=== PATIENT | female | born 1940 | race Caucasian/White ===

== ENCOUNTER → 2017-07-05 | Outpatient (CLI) | payer MEDICARE ==
--- NOTE | 2017-07-05 08:41 | Diagnostic Imaging Report ---
INDICATION: Routine screening. Comparison is made with prior exam from 10/17/2015 and 09/21/2013. The current study was also evaluated with a Computer Aided Detection (CAD) system. Mild density is identified bilaterally. The parenchymal pattern appears stable. There are scattered nodular densities which appear benign. No dominant mass or malignant appearing microcalcifications are seen. The axillae are unremarkable. IMPRESSION: No mammographic features suspicious for malignancy are identified. ACR BI-RADS Category 2: Benign findings. Result letter will be mailed to the patient. Note: At least 10% of breast cancer is not imaged by mammography. Dictated by: Dictated on workstation # [id number]
== END ==
LOC: RAD 07:38
PROVIDERS: ATTEND Family Medicine
DX: Z12.31 Encounter for screening mammogram for malignant neoplasm of breast (principal)
CPT/HCPCS: 77067

== ENCOUNTER 2018-06-01 05:39 | Outpatient (CLI) | payer MEDICARE ==
[~2018-06-01] VITALS: Ht 152.4 cm; Wt 64.4 kg
== END 2018-06-01 11:46 | disposition home or self-care (01) ==
LOC: PREOP 05:39
PROVIDERS: ATTEND Surgery
DX: Z01.818 Encounter for other preprocedural examination (principal)

== ENCOUNTER 2018-06-03 12:21 | Day surgery (SDC) | payer MEDICARE ==
[~2018-06-03] VITALS: Ht 152.4 cm; Wt 64.4 kg
--- NOTE | 2018-06-03 12:38 | Conscious Sedation/ASA ---
Conscious Sedation Pre-Proced Time 12:30 ASA Score 2 For ASA 3 and 4: Consider anesthesia and medical clearance. Also, for patients with a history of failed moderate sedation consider anesthesia. Airway Lungs Heart ASA score ASA 1: a normal healthy patient ASA 2: a patient with a mild systemic disease (mid diabetes, controlled hypertension, obesity ASA 3: a patient with a severe systemic disease that limits activity (angina , COPD, prior Myocardial infarction) ASA 4: a patient with an incapacitating disease that is a constant threat to life (CHF, renal failure) ASA 5: a moribund patient not expected to survive 24 hrs. (ruptured aneurysm) ASA 6: a declared brain- patient whose organs are being harvested. For emergent operations, add the letter E after the classification Mallampati Classification Grade 2 Sedation Plan Analgesia, Amnesia, Plan communicated to team members, Discussed options with patient/fam, Discussed risks with patient/fam The patient is an appropriate candidate to undergo the planned procedure, sedation, and anesthesia. The patient immediately re-assessed prior to indication. EVERARDO GEORGE MD Jun 03, 2018 12:38
--- NOTE | 2018-06-03 12:39 | Progress Note-Pre Operative ---
Pre-Operative Progress Note H&P Reviewed The H&P was reviewed, patient examined and no changes noted. Date Seen by Provider: Jun 03, 2018 Time Seen by Provider: 12:30 Date H&P Reviewed: Jun 03, 2018 Time H&P Reviewed: 12:30 Pre-Operative Diagnosis: rectal bleed EVERARDO GEORGE MD Jun 03, 2018 12:39
[2018-06-03 12:40] VITALS: BP 163/89
--- NOTE | 2018-06-03 12:40 | Discharge Inst-Surgical ---
D/C Lap Instructions-DORIS Follow Up 5 yrs Activity as tolerated High Fiber Diet 25g or more per day Avoid Alcohol, Caffeine, Spicy [place] and Acid foods. Drink 64 fluid oz or more of fluids per day. Symptoms to Report: Fever over 101 degree F, Nausea/Vomiting If any problems/questions: Contact your physician or go to Emergency Room EVERARDO GEORGE MD Jun 03, 2018 12:40
[2018-06-03] MEDS ORDERED: HYDROcodone/APAP 5 MG/325 MG (LORTAB) TAB PO PRN (12:45)
[2018-06-03] MEDS ORDERED: ONDANSETRON 4 MG/2 ML (SDV) Z0FRAN IV PRN (12:45)
[2018-06-03] MEDS ORDERED: morphine INJ 10 MG/ML 1ML (SYR OR VIAL) IV PRN (12:45)
[2018-06-03] MEDS ORDERED: ACETAMINOPHEN 325 MG TABLET PO PRN (12:45)
[2018-06-03] MEDS ORDERED: NS IV 500 ML 500 ML IV PRN (12:49)
[2018-06-03] MEDS ORDERED: NS IV 500 ML 500 ML ONE (12:56)
[2018-06-03] MEDS ORDERED: fentaNYL INJECTION 100 MCG/2 ML AMP IVP ONE (13:00)
[2018-06-03] MEDS ORDERED: LIDOCAINE JELLY 2% 6 ML SYRINGE MM PRN (13:00)
[2018-06-03] MEDS ORDERED: MIDAZOLAM 2 MG/2 ML (VERSED) VIAL IVP ONE (13:00)
[2018-06-03] MEDS ORDERED: fentaNYL INJECTION 100 MCG/2 ML AMP ONE ×2 (13:24)
[2018-06-03] MEDS ORDERED: LIDOCAINE JELLY 2% 6 ML SYRINGE ONE (13:24)
[2018-06-03] MEDS ORDERED: MIDAZOLAM 2 MG/2 ML (VERSED) VIAL ONE ×3 (13:25)
--- NOTE | 2018-06-03 14:39 | Progress Note-Post Operative ---
Post-Operative Progess Note Surgeon (s)/Firepot Operator And Tender (s) Surgeon EVERARDO GEORGE MD Firepot Operator And Tender: none Pre-Operative Diagnosis rectal bleed Post-Operative Diagnosis chronic stage 2 ext and int hemorrhoids, large pedunculated polyp rectum(1cm)(7cm from anal verge), mild sigmoid diverticulosis. Procedure & Operative Findings Date of Procedure 06/03/18 Procedure Performed/Findings Colonoscopy with snare polypectomy and submucosal injection. Rigid proctoscopy. Anesthesia Type CS Estimated Blood Loss Estimated blood loss (mL): minimal Specimens/Packing Specimens Removed rectal polyp EVERARDO GEORGE MD Jun 03, 2018 14:39
[2018-06-03 14:40] VITALS: BP 132/59
[2018-06-03 15:32] VITALS: BP 140/79
[2018-06-03 15:45] VITALS: BP 140/79
--- NOTE | 2018-06-04 | OPERATIVE REPORT ---
DATE OF SERVICE: 06/03/2018 ATTENDING PRIMARY CARE PHYSICIAN: Keeley Velásquez DO PREOPERATIVE DIAGNOSIS: Rectal bleed, family history of colon cancer. POSTOPERATIVE DIAGNOSES: Mild chronic stage II external and internal hemorrhoids, large pedunculated polyp(7-10mm)of the rectum, which was approximately 7 cm from the anal verge, mild sigmoiddiverticulosis. PROCEDURE: Colonoscopy with snare polypectomy,submucosal injection, rigid proctoscopy. SURGEON: Everardo George MD ANESTHESIA: Conscious sedation. ESTIMATED BLOOD LOSS: Minimal. FINDINGS: Chronic stage II external and internal hemorrhoids. There was a large polyp of the behind valve of De Oliveira of the rectum approximately 7 cm from the anal verge and palpable. This appeared to be a pedunculated polyp 7-10mm in size. This was excised at its base using a snare. A rigid proctoscopy was also performed. DISPOSITION: The patient tolerated the procedure well. INDICATIONS: The patient is a 78-year-old female who we had initially seen 11/2015. She reports a family history of colon cancer with her son being diagnosed at age 32. She underwent a colonoscopy and found to have chronic stage II external and internal hemorrhoids as well as a mild sigmoid diverticulosis. On 04/19/2018, she reports a 6-month history of intermittent episodes of red blood per rectum. This was initially thought to be hemorrhoids. She reports that she does not have any major issues with constipation and that her stools are mostly soft and she does take in at least 25 grams of fiber on a daily basis. Despite having the loose or soft stools with no form, she is noticing small amounts of self-limited blood per rectum. DESCRIPTION OF PROCEDURE: The patient was brought to the endoscopy suite, laid in left lateral decubitus position. After adequate IV pain and sedative medications and conscious sedation anesthesia, a digital rectal examination was performed. Mild chronic stage II external and internal hemorrhoids were identified, which were not actively edematous nor inflamed and no bleeding. Normal sphincter tone was felt. There was also palpable mass at the tip of the finger across from second valve of De Oliveira, which appeared to be a pedunculated polyp. The lesion was approximately 7 to 10 mm in size. We proceeded beyond this point through the sigmoid colon where a mild sigmoid diverticulosis identified. The remainder of the descending, transverse, ascending colon and the cecum were normal. There are no other lesions identified. We then proceeded with a rigid proctoscopy to try to measure the distance from the anal verge and appears to be approximately 7 cm. We then proceeded with a snare polypectomy at the base using electrocautery with visualization of good hemostasis. The lesion was then sent to pathology. Around the lesion proximally and distally, the submucosal injections of black ink were performed. The endoscope was then slowly withdrawn while taking a second look and suctioning residual air with no additional findings. The patient tolerated procedure well. We will await the biopsy results; however, due of the family history of colon cancer as well as the size of the lesion, we will recommend a followup colonoscopy in approximately 3 months. If this does harbor an early malignancy and due to the size of the lesion, she may benefit from transrectal ultrasound and if there is no muscularis invasion, she may opt for a transrectal excision; however, if this beyond this stage, she may need a formal resection with a low anterior resection. Job ID: [id number] DocumentID: [id number] Dictated Date: 06/03/2018 14:29:54 Air Sealing Technician Date: 06/03/2018 23:59:29 Dictated By: EVERARDO GEORGE MD MTDD
== END 2018-06-03 15:45 | disposition home or self-care (01) ==
LOC: ENDO 12:21
PROVIDERS: ATTEND Surgery
DX: D12.8 Benign neoplasm of rectum (principal); K57.30 Diverticulosis of large intestine without perforation or abscess without bleeding; K64.1 Second degree hemorrhoids; Z80.0 Family history of malignant neoplasm of digestive organs

== ENCOUNTER 2018-08-15 05:33 | Outpatient (CLI) | payer MEDICARE ==
[~2018-08-15] VITALS: Ht 152.4 cm; Wt 64.4 kg
== END 2018-08-15 14:33 | disposition home or self-care (01) ==
LOC: PREOP 05:33
PROVIDERS: ATTEND Surgery
DX: Z01.818 Encounter for other preprocedural examination (principal)

== ENCOUNTER 2018-08-19 09:21 | Day surgery (SDC) | payer MEDICARE ==
[~2018-08-19] VITALS: Ht 152.4 cm; Wt 64.4 kg
[2018-08-19] MEDS ORDERED: NS IV 500 ML 500 ML ONE (09:28)
[2018-08-19] MEDS ORDERED: NS IV 500 ML 500 ML IV PRN (09:33)
[2018-08-19 09:45] VITALS: BP 153/70
[2018-08-19] MEDS ORDERED: LIDOCAINE JELLY 2% 6 ML SYRINGE MM PRN (09:45)
[2018-08-19] MEDS ORDERED: fentaNYL INJECTION 100 MCG/2 ML AMP IVP ONE (09:45)
[2018-08-19] MEDS ORDERED: MIDAZOLAM 2 MG/2 ML (VERSED) VIAL IVP ONE (09:45)
[2018-08-19] MEDS ORDERED: LIDOCAINE JELLY 2% 6 ML SYRINGE ONE (10:19)
[2018-08-19] MEDS ORDERED: fentaNYL INJECTION 100 MCG/2 ML AMP ONE ×2 (10:19)
[2018-08-19] MEDS ORDERED: MIDAZOLAM 2 MG/2 ML (VERSED) VIAL ONE ×4 (10:20)
--- NOTE | 2018-08-19 10:44 | Conscious Sedation/ASA ---
Conscious Sedation Pre-Proced Time 10:00 ASA Score 2 For ASA 3 and 4: Consider anesthesia and medical clearance. Also, for patients with a history of failed moderate sedation consider anesthesia. Airway Lungs Heart ASA score ASA 1: a normal healthy patient ASA 2: a patient with a mild systemic disease (mid diabetes, controlled hypertension, obesity ASA 3: a patient with a severe systemic disease that limits activity (angina , COPD, prior Myocardial infarction) ASA 4: a patient with an incapacitating disease that is a constant threat to life (CHF, renal failure) ASA 5: a moribund patient not expected to survive 24 hrs. (ruptured aneurysm) ASA 6: a declared brain- patient whose organs are being harvested. For emergent operations, add the letter E after the classification Mallampati Classification Grade 2 Sedation Plan Analgesia, Amnesia, Plan communicated to team members, Discussed options with patient/fam, Discussed risks with patient/fam The patient is an appropriate candidate to undergo the planned procedure, sedation, and anesthesia. The patient immediately re-assessed prior to indication. EVERARDO GEORGE MD August 19, 2018 10:44
[2018-08-19] MEDS ORDERED: HYDROcodone/APAP 5 MG/325 MG (LORTAB) TAB PO PRN (10:45)
[2018-08-19] MEDS ORDERED: morphine INJ 10 MG/ML 1ML (SYR OR VIAL) IV PRN (10:45)
[2018-08-19] MEDS ORDERED: ACETAMINOPHEN 325 MG TABLET PO PRN (10:45)
[2018-08-19] MEDS ORDERED: ONDANSETRON 4 MG/2 ML (SDV) Z0FRAN IV PRN (10:45)
--- NOTE | 2018-08-19 10:45 | Progress Note-Pre Operative ---
Pre-Operative Progress Note H&P Reviewed The H&P was reviewed, patient examined and no changes noted. Date Seen by Provider: August 19, 2018 Time Seen by Provider: 10:00 Date H&P Reviewed: August 19, 2018 Time H&P Reviewed: 10:00 Pre-Operative Diagnosis: hx rectal tubulovillous adenoma, family hx colon ca EVERARDO GEORGE MD August 19, 2018 10:45
--- NOTE | 2018-08-19 10:46 | Discharge Inst-Surgical ---
D/C Lap Instructions-DORIS Follow Up 5 Activity as tolerated High Fiber Diet 25g or more per day Avoid Alcohol, Caffeine, Spicy [place] and Acid foods. Drink 64 fluid oz or more of fluids per day. Symptoms to Report: Fever over 101 degree F, Nausea/Vomiting If any problems/questions: Contact your physician or go to Emergency Room EVERARDO GEORGE MD August 19, 2018 10:46
--- NOTE | 2018-08-19 11:14 | Progress Note-Post Operative ---
Post-Operative Progess Note Surgeon (s)/Plumbing Mechanic (s) Surgeon EVERARDO GEORGE MD Plumbing Mechanic: none Pre-Operative Diagnosis hx rectal tubulovillous adenoma, family hx colon ca Post-Operative Diagnosis mild chronic stage 2 ext and int hemorrhoids, mild sigmoid diverticulosis. Procedure & Operative Findings Date of Procedure 08/19/18 Procedure Performed/Findings Colonoscopy. Anesthesia Type cs Estimated Blood Loss Estimated blood loss (mL): minimal Specimens/Packing Specimens Removed none EVERARDO GEORGE MD August 19, 2018 11:14
[2018-08-19 11:35] VITALS: BP 147/68
[2018-08-19 12:05] VITALS: BP 135/75
[2018-08-19 12:15] VITALS: BP 135/75
--- NOTE | 2018-08-19 19:56 | OPERATIVE REPORT ---
DATE OF SERVICE: 08/19/2018 ATTENDING PRIMARY CARE PHYSICIAN: Dr. Velásquez. PREOPERATIVE DIAGNOSES: History of polyp with high-grade dysplasia as well as a large pedunculated polyp 1 cm in size of the rectum, and family history of colon cancer. POSTOPERATIVE DIAGNOSES: Mild chronic stage II external and internal hemorrhoids, mild diverticulosis, no polyps identified. PROCEDURE: Colonoscopy. SURGEON: Everardo George MD ANESTHESIA: Conscious sedation. ESTIMATED BLOOD LOSS: Minimal. FINDINGS: As above in the postoperative diagnoses. DISPOSITION: The patient tolerated the procedure well. INDICATIONS: The patient is a 78-year-old female who had initially seen in 11/2015 for screening colonoscopy. She does have a family history of colon cancer with her son being diagnosed with the disease at age 32. She underwent a colonoscopy at that time and found to have hemorrhoids and mild to moderate diverticulosis; however, no polyps. She presented on 04/19/2018 with a six month history of intermittent episodes of blood per rectum and on 06/03/2018 was found to have a significantly sized pedunculated polyp of the rectum, 1 cm in size, 7 cm from the anal verge. There was also again the mild diverticulosis. The pathology came back as a tubulovillous adenoma with focal grade dysplasia; however, no focus of adenocarcinoma. DESCRIPTION OF PROCEDURE: The patient was brought to the endoscopy suite, laid in the left lateral decubitus position. After adequate IV pain and sedative medications and conscious sedation anesthesia, a digital rectal examination was performed. Chronic stage II external and internal hemorrhoids were identified, which are not actively edematous nor inflamed and no bleeding. Normal sphincter tone was felt and there were no palpable masses. The endoscope was then intubated to the anus and rectum gently insufflated. The endoscope was then advanced to the valves of De Oliveira of the rectum with no polyps or any neoplasms identified. The previous polyp excision site was marked with black ink submucosally and this was identified and there was no recurrent polyps identified. The endoscope was then advanced to the sigmoid colon where mild sigmoid diverticulosis identified. The remainder of the descending, transverse and ascending colon to the cecum was normal. No other lesions identified. The endoscope was then slowly withdrawn with taking a second look and suctioning residual air with no additional findings. The patient tolerated the procedure well. We will recommend continued medical management with a high fiber diet with at least 30 grams of fiber per day as well as significant amounts of water to promote soft stools on a daily basis. Due to her family history as well as a finding of a villous adenoma we will recommend a followup colonoscopy in 3 years. Job ID: [id number] DocumentID: [id number] Dictated Date: 08/19/2018 11:08:31 Civil Rights Attorney Date: 08/19/2018 19:56:00 Dictated By: EVERARDO GEORGE MD MTDD
== END 2018-08-19 12:15 | disposition home or self-care (01) ==
LOC: ENDO 09:21
PROVIDERS: ATTEND Surgery
DX: Z09 Encounter for follow-up examination after completed treatment for conditions other than malignant neoplasm (principal); Z86.010 Personal history of colon polyps; K57.30 Diverticulosis of large intestine without perforation or abscess without bleeding; K64.1 Second degree hemorrhoids; Z80.0 Family history of malignant neoplasm of digestive organs

== ENCOUNTER 2019-08-11 13:56 | Emergency (ER) | payer MEDICARE ==
[~2019-08-11] VITALS: Ht 152.4 cm; Wt 64.4 kg
--- NOTE | 2019-08-11 14:05 | ED Lower Extremity ---
General Stated Complaint: FALL,LEG PAIN Source: patient Exam Limitations: no limitations History of Present Illness Date Seen by Provider: August 11, 2019 Time Seen by Provider: 14:03 Initial Comments 79-year-old female presents with right knee pain. Patient reports that she had a missed step and twisted her right knee. She did not fall. She complains of pain diffusely in her right knee. She is able to bear weight better hurts. She is full range of motion but tender with range of motion. Patient also reports pain in her buttock and sacral area. She has some bruising on her low back/upper buttock. She does not have any other injuries. Allergies and Home Medications Allergies Coded Allergies: Penicillins (Verified Allergy, Unknown, RASH, 11/20/15) prednisone (Verified Allergy, Unknown, RASH, 11/20/15) Home Medications No Active Prescriptions or Reported Meds Patient Home Medication List Home Medication List Reviewed: Yes Review of Systems Constitutional: No chills, No fever Respiratory: no symptoms reported Cardiovascular: no symptoms reported Gastrointestinal: no symptoms reported Genitourinary: no symptoms reported Musculoskeletal: see HPI Past Exhtdvw-Tyaidy-Gadyqx Hx Past Med/Social Hx: Reviewed Nursing Past Med/Soc Hx Patient Social History 2nd Hand Smoke Exposure: No Recent Foreign Travel: No Contact w/Someone Who Travel: No Recent Hopitalizations: No Immunizations Up To Date Date of Pneumonia Vaccine: Oct 22, 2015 Date of Influenza Vaccine: Jan 10, 2018 Seasonal Allergies Seasonal Allergies: No Past Medical History Surgeries: No Respiratory: No Cardiac: No Neurological: No Genitourinary: No Gastrointestinal: Yes Polyps Musculoskeletal: No Endocrine: No HEENT: No Cancer: No Psychosocial: No Integumentary: No Blood Disorders: No Physical Exam Vital Signs Vital Signs - First Documented 08/11/19 14:00 Temp 37.7 Pulse 50 Resp 18 B/P (MAP) 184/84 (117) Pulse Ox 97 O2 Delivery Room Air Capillary Refill : Height, Weight, BMI Height: 5'0.00" Weight: 142lbs. 0.0oz. 64.305500qs; 27.7 BMI Method: General Appearance: WD/WN, no apparent distress Cardiovascular: normal peripheral pulses, regular rate, rhythm Respiratory: chest non-tender Gastrointestinal: soft Back: other (bruising and tenderness to the upper Botox bilateral in lower lumbar) Hips: bilateral hip non-tender Legs: bilateral leg non-tender Knees: left knee non-tender, left knee normal inspection, left knee normal range of motion; right knee soft tissue tenderness, right knee other (painful range of motion but no obvious ligament or joint laxity on exam. However patient guarding due to pain) Ankles: bilateral ankle non-tender Feet: bilateral foot non-tender Neurologic/Tendon: normal sensation, normal motor functions Skin: ecchymosis (lower lumbar/bilateral buttocks) Progress/Results/Core Measures Results/Orders My Orders Orders - MAXINE DEMARCO DO Knee, Right, 3 Views (08/11/19 14:06) Pelvis (08/11/19 14:09) Sacrum And Coccyx (08/11/19 14:09) Lumbar Spine - 2-3 Views (08/11/19 14:09) Kaden Bandage (08/11/19 15:47) Vital Signs/I&O 08/11/19 14:00 Temp 37.7 Pulse 50 Resp 18 B/P (MAP) 184/84 (117) Pulse Ox 97 O2 Delivery Room Air Progress Progress Note : Time: 15:52 Progress Note Patient with no acute fractures. Patient with knee strain and large posterior buttock/sacral hematoma. Patient will be placed in an Kaden wrap. I recommend she has difficulty and bleeding she try a walker. She should use ice to affected area for 24 hours and warm moist heat. She can try topical lidocaine with menthol as well as Tylenol and ibuprofen for the tenderness. Recommend she follow-up with her primary care provider in 2-3 days for continuation of care and recheck in today symptoms. Diagnostic Imaging Diagonstic Imaging: Xray Comments [facility], [place] NAME: [facility] REC#: [id number] PT STATUS: REG ER : 1940 PHYSICIAN: MAXINE DEMARCO DO ADMIT DATE: 08/11/19/ER Draft Date of Exam:08/11/19 SACRUM AND COCCYX INDICATION: Fall with back pain. TIME OF EXAM: 03:24 p.m. FINDINGS: Frontal and lateral views of the sacrum and coccyx were obtained. Sacrococcygeal alignment appears normal. No fractures identified. Sacral ala appear intact. Arcuate lines are intact. Calcific density of right pelvis may represent calcified uterine fibroid. IMPRESSION: No acute bony abnormality is detected [facility] [place] NAME: [facility] REC#: [id number] PT STATUS: REG ER : 1940 PHYSICIAN: MAXINE DEMARCO DO ADMIT DATE: 08/11/19/ER Draft Date of Exam:08/11/19 PELVIS EXAMINATION: Pelvis 1 or 2 views HISTORY: Fall. COMPARISON: None available. FINDINGS: Calcified fibroid is present in the uterus. Mild bilateral hip joint osteoarthrosis is seen. No fracture is seen. Alignment is normal. IMPRESSION: 1. No fracture in the pelvis.[facility] [place] NAME: [facility] REC#: [id number] PT STATUS: REG ER : 1940 PHYSICIAN: MAXINE DEMARCO DO ADMIT DATE: 08/11/19/ER Draft Date of Exam:08/11/19 LUMBAR SPINE - 2-3 VIEWS INDICATION: Fall and back pain. TIME OF EXAM: 3:23 p.m. FINDINGS: Curvature of the lumbar spine is normal. There is minimal anterolisthesis of L4 on L5. Vertebral body heights are maintained. No acute compression fracture is identified. There is generalized lumbar spondylosis with variable disc space narrowing. Abdominal aorta is calcified. There is lower lumbar facet arthropathy. IMPRESSION: Lumbar spondylosis. No acute bony abnormality is detected. [facility] [place] [place] NAME: [facility] REC#: [id number] PT STATUS: REG ER : 1940 PHYSICIAN: MAXINE DEMARCO DO ADMIT DATE: 08/11/19/ER Signed Date of Exam:08/11/19 KNEE, RIGHT, 3 VIEWS INDICATION: Fall, right knee pain. TIME OF EXAM: 3:28 p.m. TECHNIQUE: Three views of the right knee were obtained. FINDINGS: Alignment is normal. No fracture or dislocation is identified. There is no effusion. There is mild tricompartmental degenerative change noted. IMPRESSION: Degenerative changes. No acute bony abnormality is Departure Impression Primary Impression: Traumatic hematoma of buttock Qualified Codes: S30.0XXA - Contusion of lower back and pelvis, initial encounter Additional Impressions: Fall Qualified Codes: W19.XXXA - Unspecified fall, initial encounter Strain of right knee and leg Qualified Codes: S86.911A - Strain of unspecified muscle(s) and tendon(s) at lower leg level, right leg, initial encounter Lumbar contusion Qualified Codes: S30.0XXA - Contusion of lower back and pelvis, initial encounter Disposition: HOME, SELF-CARE Condition: Stable Departure-Patient Inst. Referrals: VALENTE ALATORRE DO (PCP/Family) Primary Care Physician Patient Instructions: Contusion (DC), Taking Care of Bruises, Coccyx Injury (DC), Muscle Strain Add. Discharge Instructions: Please use a walker as needed to ambulate due to knee strain Please follow-up with your primary care provider in 2-3 days for recheck in today symptoms Tylenol or ibuprofen as needed for pain or tenderness 4% topical lidocaine with menthol to affected area as directed on package Emergency department focuses on treating and ruling out life-threatening diseases. Whenever possible, a diagnosis is given. However, most patients are given an impression based on their history, physical exam, and workup during your brief time in the ER. Information about probable diagnosis and other educ ational material has been provided. Please take the time to read and understand this information. It is very important that you follow up with a physician as discussed during the visit today. Failure to adhere to your follow-up instructions may lead to severe disability, injury, or so please make sure to keep your appointments or obtain one as requested. Please keep in mind the emergency department is not designed to your primary care or "family doctor" and nonurgent issues are best evaluated by an outpatient physician Scripts No Active Prescriptions or Reported Meds MAXINE DEMARCO DO August 11, 2019 14:05
--- NOTE | 2019-08-11 15:09 | NUR ---
Pt denies needs at this time. Report given to Baylee to assume care of pt at this time.
--- NOTE | 2019-08-11 15:29 | Diagnostic Imaging Report ---
EXAMINATION: Pelvis 1 or 2 views HISTORY: Fall. COMPARISON: None available. FINDINGS: Calcified fibroid is present in the uterus. Mild bilateral hip joint osteoarthrosis is seen. No fracture is seen. Alignment is normal. IMPRESSION: 1. No fracture in the pelvis. Dictated by: Dictated on workstation # [id number]
--- NOTE | 2019-08-11 15:30 | NUR ---
PT BACK FROM LAB ET WARM BLANKET GIVEN. DENIES NEEDS AT THIS TIME.
--- NOTE | 2019-08-11 15:30 | Diagnostic Imaging Report ---
INDICATION: Fall, right knee pain. TIME OF EXAM: 3:28 p.m. TECHNIQUE: Three views of the right knee were obtained. FINDINGS: Alignment is normal. No fracture or dislocation is identified. There is no effusion. There is mild tricompartmental degenerative change noted. IMPRESSION: Degenerative changes. No acute bony abnormality is detected. Dictated by: Dictated on workstation # [id number]
--- NOTE | 2019-08-11 15:34 | Diagnostic Imaging Report ---
INDICATION: Fall and back pain. TIME OF EXAM: 3:23 p.m. FINDINGS: Curvature of the lumbar spine is normal. There is minimal anterolisthesis of L4 on L5. Vertebral body heights are maintained. No acute compression fracture is identified. There is generalized lumbar spondylosis with variable disc space narrowing. Abdominal aorta is calcified. There is lower lumbar facet arthropathy. IMPRESSION: Lumbar spondylosis. No acute bony abnormality is detected. Dictated by: Dictated on workstation # [id number]
--- NOTE | 2019-08-11 15:37 | Diagnostic Imaging Report ---
INDICATION: Fall with back pain. TIME OF EXAM: 03:24 p.m. FINDINGS: Frontal and lateral views of the sacrum and coccyx were obtained. Sacrococcygeal alignment appears normal. No fractures identified. Sacral ala appear intact. Arcuate lines are intact. Calcific density of right pelvis may represent calcified uterine fibroid. IMPRESSION: No acute bony abnormality is detected. Dictated by: Dictated on workstation # [id number]
[2019-08-11 15:59] VITALS: BP 137/84
== END 2019-08-11 15:59 | disposition home or self-care (01) ==
LOC: EDUNIT# 13:56 → ER 13:57
DX: S30.0XXA Contusion of lower back and pelvis, initial encounter (principal); S86.911A Strain of unspecified muscle(s) and tendon(s) at lower leg level, right leg, initial encounter; Z88.0 Allergy status to penicillin; Z88.8 Allergy status to other drugs, medicaments and biological substances; X50.1XXA Overexertion from prolonged static or awkward postures, initial encounter
CPT/HCPCS: 72100; 72170; 72220; 73562

== ENCOUNTER 2019-08-25 20:09 | Emergency (ER) | payer MEDICARE ==
[~2019-08-25] VITALS: Ht 152 cm; Wt 63.0 kg
[2019-08-25 20:58] LABS: BASOPHILS % (AUTO) 0 % (0-10); EOSINOPHILS # (AUTO) 0.2 10^3/uL (0.0-0.3); EOSINOPHILS % (AUTO) 2 % (0-10); HEMATOCRIT 29 % (35-52); HEMOGLOBIN 9.4 G/DL (11.5-16.0); LYMPHOCYTES # (AUTO) 3.6 X 10^3 (1.0-4.0); LYMPHOCYTES % (AUTO) 32 % (12-44); MEAN CORPUSCULAR HEMOGLOBIN 27 PG (25-34); MEAN CORPUSCULAR HGB CONC 32 G/DL (32-36); MEAN CORPUSCULAR VOLUME 82 FL (80-99); MONOCYTES # (AUTO) 1.1 X 10^3 (0.0-1.0); MONOCYTES % (AUTO) 9 % (0-12); NEUTROPHILS # (AUTO) 6.5 X 10^3 (1.8-7.8); NEUTROPHILS % (AUTO) 57 % (42-75); PLATELET COUNT 316 10^3/uL (130-400); WHITE BLOOD COUNT 11.4 10^3/uL (4.3-11.0)
[2019-08-25 20:59] LABS: ALBUMIN 3.7 GM/DL (3.2-4.5); POTASSIUM 3.7 MMOL/L (3.6-5.0)
[2019-08-25 21:01] LABS: CALCIUM 9.3 MG/DL (8.5-10.1)
[2019-08-25 21:02] LABS: TOTAL PROTEIN 6.5 GM/DL (6.4-8.2)
[2019-08-25 21:04] LABS: BILIRUBIN,TOTAL 0.5 MG/DL (0.1-1.0)
[2019-08-25 21:05] LABS: CREATININE SERUM 1.16 MG/DL (0.60-1.30); PROTHROMBIN TIME PATIENT 13.6 SEC (12.2-14.7)
--- NOTE | 2019-08-25 22:22 | ED GI ---
General Chief Complaint: Abdominal/GI Problems Stated Complaint: BLOODY STOOLS Nursing Triage Note: Patient went to have a bowel movement and states the toilet was full of blood around 1830. Sepsis Screen: No Definite Risk Source of Information: Patient, Old Records Exam Limitations: No Limitations History of Present Illness Date Seen by Provider: August 25, 2019 Time Seen by Provider: 20:46 Initial Comments This 79-year-old woman presents to emergency room with concerns about sudden onset of a large bloody bowel movement at home. She denies any pain. She has a history of rectal polyps and tubulovillous adenoma. She has had a large rectal polyp removed with pathology demonstrating high-grade dysplasia. Her last colonoscopy the last year demonstrated no significant abnormalities and a three- year follow-up was recommended. She is afebrile and her abdomen is nontender. She denies use of blood thinners. Allergies and Home Medications Allergies Coded Allergies: Penicillins (Verified Allergy, Unknown, RASH, 11/20/15) prednisone (Verified Allergy, Unknown, RASH, 11/20/15) Home Medications No Active Prescriptions or Reported Meds Patient Home Medication List Home Medication List Reviewed: Yes Review of Systems Review of Systems Constitutional: no symptoms reported EENTM: No Symptoms Reported Respiratory: No Symptoms Reported Cardiovascular: No Symptoms Reported Gastrointestinal: See HPI Genitourinary: No Symptoms Reported Musculoskeletal: no symptoms reported Skin: no symptoms reported Psychiatric/Neurological: No Symptoms Reported Endocrine: No Symptoms Reported Hematologic/Lymphatic: No Symptoms Reported Past Txhclhz-Ccfggh-Frgqln Hx Past Med/Social Hx: Reviewed Nursing Past Med/Soc Hx Patient Social History Alcohol Use: Denies Use Recreational Drug Use: No Smoking Status: Never a Smoker 2nd Hand Smoke Exposure: No Recent Foreign Travel: No Contact w/Someone Who Travel: No Recent Infectious Disease Expo: No Recent Hopitalizations: No Immunizations Up To Date Date of Pneumonia Vaccine: Oct 22, 2015 Date of Influenza Vaccine: Jan 10, 2018 Seasonal Allergies Seasonal Allergies: No Past Medical History Surgeries: No Respiratory: No Cardiac: Yes Hypertension Neurological: No : No Genitourinary: No Gastrointestinal: Yes Polyps (tubulovillous adenoma with high-grade dysplasia) Musculoskeletal: No Endocrine: No HEENT: No Cancer: No Psychosocial: No Integumentary: No Blood Disorders: No Physical Exam Vital Signs Vital Signs - First Documented 08/25/19 20:34 Pulse 91 Resp 14 B/P (MAP) 123/68 (86) Pulse Ox 98 O2 Delivery Room Air Capillary Refill : Less Than 3 Seconds Height/Weight/BMI Height: 5'0.00" Weight: 142lbs. 0.0oz. [id number]; 27.00 BMI Method: General Appearance: WD/WN, no apparent distress HEENT: PERRL/EOMI, normal ENT inspection Neck: normal inspection Respiratory: lungs clear, normal breath sounds, no respiratory distress Cardiovascular: regular rate, rhythm, no edema, no murmur Gastrointestinal: normal bowel sounds, non tender, soft; No distended Rectal: normal rectal tone; No mass, No tenderness; other (dried blood around the anus with no active bleeding. 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, no motor/sensory deficits, alert, normal mood/affect, oriented x 3 Skin: normal color, warm/dry Progress/Results/Core Measures Results/Orders Lab Results Laboratory Tests Test 08/25/19 20:35 Range/Units White Blood Count 11.4 H 4.3-11.0 10^3/uL Red Blood Count 3.54 L 4.35-5.85 10^6/uL Hemoglobin 9.4 L 11.5-16.0 G/DL Hematocrit 29 L 35-52 % Mean Corpuscular Volume 82 80-99 FL Mean Corpuscular Hemoglobin 27 25-34 PG Mean Corpuscular Hemoglobin Concent 32 32-36 G/DL Red Cell Distribution Width 15.0 H 10.0-14.5 % Platelet Count 316 130-400 10^3/uL Mean Platelet Volume 10.0 7.4-10.4 FL Neutrophils (%) (Auto) 57 42-75 % Lymphocytes (%) (Auto) 32 12-44 % Monocytes (%) (Auto) 9 0-12 % Eosinophils (%) (Auto) 2 0-10 % Basophils (%) (Auto) 0 0-10 % Neutrophils # (Auto) 6.5 1.8-7.8 X 10^3 Lymphocytes # (Auto) 3.6 1.0-4.0 X 10^3 Monocytes # (Auto) 1.1 H 0.0-1.0 X 10^3 Eosinophils # (Auto) 0.2 0.0-0.3 10^3/uL Basophils # (Auto) 0.0 0.0-0.1 10^3/uL Prothrombin Time 13.6 12.2-14.7 SEC INR Comment 1.0 0.8-1.4 Sodium Level 141 135-145 MMOL/L Potassium Level 3.7 3.6-5.0 MMOL/L Chloride Level 108 H 98-107 MMOL/L Carbon Dioxide Level 20 L 21-32 MMOL/L Anion Gap 13 5-14 MMOL/L Blood Urea Nitrogen 17 7-18 MG/DL Creatinine 1.16 0.60-1.30 MG/DL Estimat Glomerular Filtration Rate 45 BUN/Creatinine Ratio 15 Glucose Level 228 H 70-105 MG/DL Calcium Level 9.3 8.5-10.1 MG/DL Corrected Calcium 9.5 8.5-10.1 MG/DL Total Bilirubin 0.5 0.1-1.0 MG/DL Aspartate Amino Transf (AST/SGOT) 12 5-34 U/L Alanine Aminotransferase (ALT/SGPT) 8 0-55 U/L Alkaline Phosphatase 91 40-136 U/L Total Protein 6.5 6.4-8.2 GM/DL Albumin 3.7 3.2-4.5 GM/DL My Orders Orders - ZAHIRA FELDMAN MD Cbc With Automated Diff (08/25/19 20:52) Hemoglobin A1c (08/25/19 21:19) Orthostatic Vital Signs (Adult (08/25/19 22:22) Vital Signs/I&O 08/25/19 08/25/19 08/25/19 20:34 22:42 22:59 Pulse 91 87 81 89 90 Resp 14 16 B/P (MAP) 123/68 (86) 124/59 (80) 112/59 121/58 (79) 112/59 (76) Pulse Ox 98 98 O2 Delivery Room Air Room Air Blood Pressure Mean: 86 Progress Progress Note : Progress Note Labs and vitals were stable and patient had no further rectal bleeding. Case is discussed with Dr. Strong. Patient does not meet admission criteria and should follow up with Dr. Garcia on Wednesday. Patient was observed for a while to ensure bleeding stopped and vital signs remained stable. Orthostatic blood pressures were normal and patient was discharged home. Patient was noted to have hyperglycemia. A hemoglobin A1c was ordered and patient was advised to follow- up with her primary care provider for diabetic testing. Departure Impression Primary Impression: Hematochezia Additional Impression: Hyperglycemia Disposition: 01 HOME, SELF-CARE Condition: Improved Departure-Patient Inst. Referrals: VALENTE VELÁSQUEZ DO (PCP/Family) Primary Care Physician Patient Instructions: Gastrointestinal Bleeding, Hyperglycemia, Adult (DC) Add. Discharge Instructions: Start with a clear liquid diet for the next 12 hours and then gradually advance your diet with small quantities of bland food as tolerated. Expect to pass a bit more blood from the rectum with your next few bowel movements as the blood clears your system. Follow-up with Dr. Garcia and Dr. Velásquez on Wednesday. Discussed the rectal bleeding with Dr. Garcia and the high blood sugar with Dr. Velásquez. Avoid sugars and excessive carbohydrates in your diet. Return to the emergency room if you have recurrence of significant bleeding or if you develop new symptoms such as fever, lightheadedness, shortness of breath, etc. Return to the emergency room if you have any further problems or concerns. All discharge instructions reviewed with patient and/or family. Voiced understanding. Scripts No Active Prescriptions or Reported Meds Copy Copies To 1: VALENTE VELÁSQUEZ DO Copies To 2: EVERARDO GARCIA MD, JOSHUA T MD August 25, 2019 22:21
[2019-08-25 22:42] VITALS: BP_SYST 112; BP_SYST 121; BP_SYST 124; BP_DIAS 58; BP_DIAS 59
[2019-08-25 22:59] VITALS: BP 112/59
== END 2019-08-26 00:03 | disposition home or self-care (01) ==
LOC: EDUNIT# 20:09 → ER 20:10
DX: K92.1 Melena (principal); R73.9 Hyperglycemia, unspecified; Z88.0 Allergy status to penicillin; Z88.8 Allergy status to other drugs, medicaments and biological substances; Z86.010 Personal history of colon polyps
CPT/HCPCS: 36415; 80053; 83036; 85025; 85610; 86850; 86900; 86901; 86920

== ENCOUNTER 2019-09-01 09:08 | Outpatient (RCR) | payer MEDICARE ==
[~2019-09-01] VITALS: Ht 152 cm; Wt 63.6 kg
== END 2019-09-01 14:48 | disposition home or self-care (01) ==
LOC: PREOP 09:08
PROVIDERS: ATTEND Surgery
DX: Z01.818 Encounter for other preprocedural examination (principal); Z11.59 Encounter for screening for other viral diseases
CPT/HCPCS: 87635

== ENCOUNTER → 2019-09-06 | Day surgery (SDC) | payer MEDICARE ==
[~2019-09-06] VITALS: Ht 152 cm; Wt 63.6 kg
[2019-09-06] VITALS (13 sets, daily range): BP systolic 124–189; BP diastolic 59–87
[~2019-09-06] MED LIST: ACETAMINOPHEN 325 MG TABLET PO PRN; HYDROcodone/APAP 5 MG/325 MG (LORTAB) TAB PO PRN; LIDOCAINE JELLY 2% 6 ML SYRINGE MM PRN; LIDOCAINE JELLY 2% 6 ML SYRINGE ONE; MIDAZOLAM 5 MG/5 ML (VERSED) VIAL ONE; NS IV 500 ML 500 ML IV PRN; NS IV 500 ML 500 ML ONE; ONDANSETRON 4 MG/2 ML (SDV) Z0FRAN IVP PRN; fentaNYL INJECTION 100 MCG/2 ML AMP IVP ONE; fentaNYL INJECTION 100 MCG/2 ML AMP ONE; morphine INJ 10 MG/ML 1ML (SYR OR VIAL) IVP PRN
--- NOTE | 2019-09-06 10:34 | Conscious Sedation/ASA ---
Conscious Sedation Pre-Proced Time 10:00 ASA Score 2 For ASA 3 and 4: Consider anesthesia and medical clearance. Also, for patients with a history of failed moderate sedation consider anesthesia. Airway Lungs Heart ASA score ASA 1: a normal healthy patient ASA 2: a patient with a mild systemic disease (mid diabetes, controlled hypertension, obesity ASA 3: a patient with a severe systemic disease that limits activity (angina, COPD, prior Myocardial infarction) ASA 4: a patient with an incapacitating disease that is a constant threat to life (CHF, renal failure) ASA 5: a moribund patient not expected to survive 24 hrs. (ruptured aneurysm) ASA 6: a declared brain- patient whose organs are being harvested. For emergent operations, add the letter E after the classification Mallampati Classification Grade 2 Sedation Plan Analgesia, Amnesia, Plan communicated to team members, Discussed options with patient/fam, Discussed risks with patient/fam The patient is an appropriate candidate to undergo the planned procedure, sedation, and anesthesia. The patient immediately re-assessed prior to indication. EVERARDO GEORGE MD September 06, 2019 10:34
--- NOTE | 2019-09-06 10:35 | Progress Note-Pre Operative ---
Pre-Operative Progress Note H&P Reviewed The H&P was reviewed, patient examined and no changes noted. Date Seen by Provider: September 06, 2019 Time Seen by Provider: 10:00 Date H&P Reviewed: September 06, 2019 Time H&P Reviewed: 10:00 Pre-Operative Diagnosis: hx large polyp with HGD EVERARDO GEORGE MD September 06, 2019 10:35
--- NOTE | 2019-09-06 10:36 | Discharge Inst-Surgical ---
D/C Lap Instructions-DORIS Follow Up Activity as tolerated No driving for 24 hours No [address] while on pain medications Incentive Spirometry use every 2 hours while awake High Fiber Diet 25g or more per day Avoid Alcohol, Caffeine, Spicy Doral and Acid foods. Drink 64 fluid oz or more of fluids per day. Symptoms to Report: Fever over 101 degree F, Nausea/Vomiting If any problems/questions: Contact your physician or go to Emergency Room EVERARDO GEORGE MD September 06, 2019 10:36
[2019-09-06] MEDS: MIDAZOLAM 5 MG/5 ML (VERSED) VIAL IV PRN ×3 (11:20→11:35)
--- NOTE | 2019-09-06 13:11 | Progress Note-Post Operative ---
Post-Operative Progess Note Surgeon (s)/Public Health Aide (s) Surgeon EVERARDO GEORGE MD Public Health Aide: none Pre-Operative Diagnosis hx large polyp with HGD Post-Operative Diagnosis chronic stage 2 ext and int hemorrhoids, moderate sigmoid diverticulosis, no recurrent polyps. Procedure & Operative Findings Date of Procedure 09/06/19 Procedure Performed/Findings colonoscopy. Anesthesia Type cs Estimated Blood Loss Estimated blood loss (mL): minimal Specimens/Packing Specimens Removed none EVERARDO GEORGE MD September 06, 2019 13:11
--- NOTE | 2019-09-06 16:35 | OPERATIVE REPORT ---
DATE OF SERVICE: 09/06/2019 ATTENDING PRIMARY CARE PHYSICIAN: Dr. Keeley Velásquez. PREOPERATIVE DIAGNOSES: Rectal bleed, history of large rectal polyp with high-grade dysplasia. POSTOPERATIVE DIAGNOSES: Chronic stage II external and internal hemorrhoids, no recurrent polyp, moderate sigmoid diverticulosis. PROCEDURE: Colonoscopy. SURGEON: Everardo George MD. ANESTHESIA: Conscious sedation. ESTIMATED BLOOD LOSS: Minimal. FINDINGS: Chronic stage II external and internal hemorrhoids, no recurrent polyp, moderate sigmoid diverticulosis. DISPOSITION: The patient tolerated the procedure well. INDICATIONS: The patient is a 79-year-old female known to us. She does have a family history of colon cancer with her son being diagnosed with the disease at age 32. At that time, we found a chronic stage II external and internal hemorrhoids as well as a moderate sigmoid diverticulosis. She was seen back in 2019 where she noticed a small amount of blood and a large pedunculated polyp was identified 7 cm from the anal verge as well as the diverticulosis. The polyp was completely excised at the base. A rigid proctoscopy was also performed to measure the distance from the anal verge, which was approximately 7 cm in length. Pathology came back as a tubulovillous adenoma with focal high-grade dysplasia; however, no focus of adenocarcinoma. She was referred to us recently for rectal bleeding, which was one time episode and presented to the Emergency Department. This was self-limited and stopped on its own. DESCRIPTION OF PROCEDURE: The patient was brought to the endoscopy suite, laid in the left lateral decubitus position. After adequate IV pain and stated medications and conscious sedation anesthesia, a digital rectal examination was performed. Chronic stage II external and internal hemorrhoids were identified, which were not actively edematous nor inflamed and no bleeding. Normal sphincter tone was felt and there were no palpable masses. The endoscope was then intubated and anus and rectum gently insufflated. The endoscope was then advanced through the valves of De Oliveira of the rectum with no polyps or any neoplasms identified. The previous excision site, which was submucosally marked was normal with no recurrent polyps. The endoscope was then advanced to the sigmoid colon where a moderate sigmoid diverticulosis identified with no mucosal inflammatory change to indicate any active diverticulitis. This is most likely etiology of her episode of rectal bleed. The endoscope was then advanced to the remainder of the descending, transverse and ascending colon to the cecum. These segments were normal. There were no polyps or any neoplasms identified throughout the colon or rectum as well as no active bleeding sources. The endoscope was then slowly withdrawn while taking a second look and suctioning of residual air with no additional findings. The patient tolerated the procedure well. We will recommend a high fiber diet with at least 25 grams of fiber daily as well as significant amounts of water to promote soft stools on a daily basis and prevent any increased pressure within the left side of the colon and prevent the episodes of diverticular bleeding. No recurrent polyps were identified and if she is asymptomatic, she does not need another colonoscopy for another 5 years. Job ID: [id number] DocumentID: [id number] Dictated Date: 09/06/2019 11:52:46 Communications Technician Date: 09/06/2019 16:35:12 Dictated By: EVERARDO GEORGE MD MTDD
== END ==
LOC: ENDO 09:20
PROVIDERS: ATTEND Surgery
DX: K92.1 Melena (principal); K57.30 Diverticulosis of large intestine without perforation or abscess without bleeding; K64.1 Second degree hemorrhoids; K64.4 Residual hemorrhoidal skin tags; Z87.19 Personal history of other diseases of the digestive system; Z86.010 Personal history of colon polyps; Z80.0 Family history of malignant neoplasm of digestive organs

== ENCOUNTER 2020-07-12 14:17 | Outpatient (RCR) | payer MEDICARE ==
[2020-06-28 09:05] VITALS: BP 167/75
[2020-06-28] MEDS: IRON SUCROSE 200 MG/10 ML (VENOFER) VIAL IV SCH (10:06)
[2020-07-01] MEDS: IRON SUCROSE 200 MG/10 ML (VENOFER) VIAL IV SCH (09:13)
[2020-07-01 09:15] VITALS: BP 161/86
[2020-07-03] MEDS: IRON SUCROSE 200 MG/10 ML (VENOFER) VIAL IV SCH (09:27)
[2020-07-03 09:29] VITALS: BP 167/52
[2020-07-05 08:50] VITALS: BP 164/61
[2020-07-05] MEDS: IRON SUCROSE 200 MG/10 ML (VENOFER) VIAL IV SCH (09:25)
[~2020-07-12] VITALS: Ht 154.9 cm; Wt 65.7 kg
[~2020-07-12 14:17] MED LIST changes: -ACETAMINOPHEN 325 MG TABLET PO PRN; -HYDROcodone/APAP 5 MG/325 MG (LORTAB) TAB PO PRN; +IRON SUCROSE 200 MG/10 ML (VENOFER) VIAL IV ONE; -LIDOCAINE JELLY 2% 6 ML SYRINGE MM PRN; -LIDOCAINE JELLY 2% 6 ML SYRINGE ONE; -MIDAZOLAM 5 MG/5 ML (VERSED) VIAL ONE; -NS IV 500 ML 500 ML IV PRN; -NS IV 500 ML 500 ML ONE; -ONDANSETRON 4 MG/2 ML (SDV) Z0FRAN IVP PRN; -fentaNYL INJECTION 100 MCG/2 ML AMP IVP ONE; -fentaNYL INJECTION 100 MCG/2 ML AMP ONE; -morphine INJ 10 MG/ML 1ML (SYR OR VIAL) IVP PRN
[2020-07-12 14:27] VITALS: BP 146/78
== END 2020-07-12 14:55 | disposition home or self-care (01) ==
LOC: SDC 14:17
PROVIDERS: ATTEND Internal Medicine
DX: E61.1 Iron deficiency (principal)
CPT/HCPCS: 96365

== ENCOUNTER 2020-10-22 12:23 | Inpatient (IN) | payer MEDICARE ==
[~2020-10-22] VITALS: Ht 170 cm; Wt 60.0 kg
--- NOTE | 2020-10-22 13:05 | ED Respiratory ---
General Stated Complaint: FEVER,COUGH,DIAHRREA Source: patient Exam Limitations: no limitations History of Present Illness Date Seen by Provider: Oct 22, 2020 Time Seen by Provider: 12:48 Initial Comments This is a well-appearing 80-year-old female who presents to the ER with complaints of nausea, vomiting, diarrhea, fever, cough, chills for the past few days. States that she did have a Covid vaccine beginning of the year. No known ill contacts. Reports mid abdominal discomfort. No chest pain, no shortness of breath, dysuria, hematuria, or rashes. Allergies and Home Medications Allergies Coded Allergies: Penicillins (Verified Allergy, Mild, RASH, 06/28/20) prednisone (Verified Allergy, Mild, RASH, 06/28/20) Patient Home Medication List Home Medication List Reviewed: Yes Review of Systems Review of Systems Constitutional: chills, malaise, weakness EENTM: no symptoms reported Respiratory: see HPI, cough Cardiovascular: no symptoms reported Gastrointestinal: see HPI Genitourinary: no symptoms reported Musculoskeletal: no symptoms reported Skin: no symptoms reported Psychiatric/Neurological: No Symptoms Reported Hematologic/Lymphatic: No Symptoms Reported Immunological/Allergic: no symptoms reported Past Jqimhde-Crtktx-Aeaevn Hx Seasonal Allergies Seasonal Allergies: Yes Past Medical History Surgeries: No Respiratory: No Cardiac: No Hypertension Neurological: No Sexually Transmitted Disease: No HIV/AIDS: No Genitourinary: No Gastrointestinal: Yes Gastroesophageal Reflux, Polyps Musculoskeletal: No Endocrine: No HEENT: Yes (GLASSES) Loss of Vision: Denies Hearing Impairment: Denies Cancer: No Psychosocial: No Integumentary: No Blood Disorders: No Adverse Reaction/Blood Tranf: No (N/A) Physical Exam Vital Signs - First Documented Capillary Refill : Height: 5'0.00" Weight: 142lbs. 0.0oz. [id number]; 27.52 BMI Method: General Appearance: WD/WN, no apparent distress Eyes: Bilateral Eye Normal Inspection, Bilateral Eye PERRL, Bilateral Eye EOMI HEENT: PERRL/EOMI, normal ENT inspection, pharynx normal Neck: full range of motion, supple, normal inspection Respiratory: chest non-tender, lungs clear, normal breath sounds, no respiratory distress, decreased breath sounds Gastrointestinal: normal bowel sounds, soft; No distended, No guarding, No rebound; tenderness (mid abdominal tenderness) Neurologic/Psychiatric: no motor/sensory deficits, alert, normal mood/affect, oriented x 3 Skin: normal color, warm/dry Focused Exam Lactate Level 10/22/20 13:29: Lactic Acid Level 1.63 Lactic Acid Level Laboratory Tests Test 10/22/20 13:29 Lactic Acid Level 1.63 MMOL/L (0.50-2.00) Progress/Results/Core Measures Suspected Sepsis SIRS Temperature: Pulse: Respiratory Rate: Laboratory Tests 10/22/20 12:57: White Blood Count 19.3H Blood Pressure / Mean: 10/22/20 13:29: Lactic Acid Level 1.63 Laboratory Tests 10/22/20 12:57: Creatinine 1.45H, INR Comment 1.3, Platelet Count 165, Total Bilirubin 1.7H Results/Orders Lab Results Laboratory Tests Test 10/22/20 12:57 10/22/20 13:29 10/22/20 14:25 Range/Units White Blood Count 19.3 H 4.3-11.0 10^3/uL Red Blood Count 4.50 3.80-5.11 10^6/uL Hemoglobin 13.1 11.5-16.0 g/dL Hematocrit 39 35-52 % Mean Corpuscular Volume 86 80-99 fL Mean Corpuscular Hemoglobin 29 25-34 pg Mean Corpuscular Hemoglobin Concent 34 32-36 g/dL Red Cell Distribution Width 13.3 10.0-14.5 % Platelet Count 165 130-400 10^3/uL Mean Platelet Volume 10.7 9.0-12.2 fL Immature Granulocyte % (Auto) 4 % Neutrophils (%) (Auto) 85 H 42-75 % Lymphocytes (%) (Auto) 3 L 12-44 % Monocytes (%) (Auto) 7 0-12 % Eosinophils (%) (Auto) 0 0-10 % Basophils (%) (Auto) 0 0-10 % Neutrophils # (Auto) 16.5 H 1.8-7.8 10^3/uL Lymphocytes # (Auto) 0.7 L 1.0-4.0 10^3/uL Monocytes # (Auto) 1.3 H 0.0-1.0 10^3/uL Eosinophils # (Auto) 0.0 0.0-0.3 10^3/uL Basophils # (Auto) 0.1 0.0-0.1 10^3/uL Immature Granulocyte # (Auto) 0.8 H 0.0-0.1 10^3/uL Neutrophils % (Manual) 87 % Lymphocytes % (Manual) 5 % Monocytes % (Manual) 6 % Band Neutrophils 2 % Blood Morphology Comment NORMAL Prothrombin Time 16.1 H 12.2-14.7 SEC INR Comment 1.3 0.8-1.4 Activated Partial Thromboplast Time 40 H 24-35 SEC Fibrinogen 876 H 221-496 MG/DL Sodium Level 134 L 135-145 MMOL/L Potassium Level 3.8 3.6-5.0 MMOL/L Chloride Level 98 98-107 MMOL/L Carbon Dioxide Level 20 L 21-32 MMOL/L Anion Gap 16 H 5-14 MMOL/L Blood Urea Nitrogen 33 H 7-18 MG/DL Creatinine 1.45 H 0.60-1.30 MG/DL Estimat Glomerular Filtration Rate 35 BUN/Creatinine Ratio 23 Glucose Level 122 H 70-105 MG/DL Calcium Level 9.2 8.5-10.1 MG/DL Corrected Calcium 9.4 8.5-10.1 MG/DL Total Bilirubin 1.7 H 0.1-1.0 MG/DL Aspartate Amino Transf (AST/SGOT) 32 5-34 U/L Alanine Aminotransferase (ALT/SGPT) 32 0-55 U/L Alkaline Phosphatase 77 40-136 U/L Lactate Dehydrogenase 222 H 125-220 U/L Troponin I < 0.028 <0.028 NG/ML C-Reactive Protein High Sensitivity 27.28 H 0.00-0.50 MG/DL Total Protein 7.2 6.4-8.2 GM/DL Albumin 3.8 3.2-4.5 GM/DL Lipase 13 8-78 U/L Procalcitonin 72.49 H <0.10 NG/ML Influenza Type A (RT-PCR) Not Detected Not Detecte Influenza Type B (RT-PCR) Not Detected Not Detecte SARS-CoV-2 RNA (RT-PCR) Not Detected Not Detecte Lactic Acid Level 1.63 0.50-2.00 MMOL/L Urine Color YELLOW Urine Clarity CLEAR Urine pH 5.5 5-9 Urine Specific Eagle 1.025 H 1.016-1.022 Urine Protein 1+ H NEGATIVE Urine Glucose (UA) NEGATIVE NEGATIVE Urine Ketones TRACE H NEGATIVE Urine Nitrite NEGATIVE NEGATIVE Urine Bilirubin 1+ H NEGATIVE Urine Urobilinogen 1.0 < = 1.0 MG/DL Urine Leukocyte Esterase 2+ H NEGATIVE Urine RBC (Auto) 1+ H NEGATIVE Urine RBC 2-5 H /HPF Urine WBC 5-10 H /HPF Urine Squamous Epithelial Cells 10-25 H /HPF Urine Crystals PRESENT H /LPF Urine Amorphous Sediment LARGE MOHIT URATES H /LPF Urine Bacteria TRACE /HPF Urine Casts NONE /LPF Urine Mucus NEGATIVE /LPF Urine Culture Indicated YES My Orders Orders - NEHA BURNETT APRN Covid 19 Inhouse Test (10/22/20 12:52) Influenza A And B By Pcr (10/22/20 12:52) Cbc With Automated Diff (10/22/20 13:05) Vital Signs: Every 4 Hours (Or (10/22/20 13:05) Monitor-Rhythm Ecg Trace Only (10/22/20 13:05) Ed Iv/Invasive Line Start (10/22/20 13:05) Comprehensive Metabolic Panel (10/22/20 13:05) Ferritin (10/22/20 13:05) LDH (10/22/20 13:05) Hs C Reactive Protein (10/22/20 13:05) Troponin I (10/22/20 13:05) Lactic Acid Analyzer (10/22/20 13:05) Protime With Inr (10/22/20 13:05) Partial Thromboplastin Time (10/22/20 13:05) Fibrinogen (10/22/20 13:05) Ekg Tracing (10/22/20 13:05) Chest 1 View, Ap/Pa Only (10/22/20 13:05) Ns Iv 1000 Ml (Sodium Chloride 0.9%) (10/22/20 13:15) Acetaminophen Tablet/Caplet (Tylenol T (10/22/20 13:15) Ondansetron Injection (Zofran Injectio (10/22/20 13:15) Blood Culture (10/22/20 13:05) Sputum Culture (10/22/20 13:05) Urinalysis (10/22/20 13:05) Urine Culture (10/22/20 13:05) Vital Signs Adult Sepsis Patie Q15M (10/22/20 13:05) O2 (10/22/20 13:05) Remove Rings In Anticipation O (10/22/20 13:05) Manual Differential (10/22/20 12:57) Lipase (10/22/20 13:37) Procalcitonin (Pct) (10/22/20 13:38) Ct Abdomen/Pelvis Wo (10/22/20 14:54) Cefepime Injection (Maxipime Injection) (10/22/20 15:45) Medications Given in ED Current Medications Medications Dose Ordered Sig/Yeison Route Start Time Stop Time Status Last Admin Dose Admin Acetaminophen 650 mg ONCE ONCE PO 10/22/20 13:15 10/22/20 13:16 DC 10/22/20 13:33 650 MG Cefepime HCl 1000 mg/Sterile Water 10 ml @ 200 mls/hr ONCE ONCE IV 10/22/20 15:45 10/22/20 15:47 DC 10/22/20 15:46 200 MLS/HR Ondansetron HCl 4 mg ONCE ONCE IV 10/22/20 13:15 10/22/20 13:16 DC 10/22/20 13:35 4 MG Vital Signs/I&O 10/22/20 10/22/20 10/22/20 10/22/20 12:50 12:50 12:57 13:33 Temp 38.0 38.0 Pulse 113 Resp 20 B/P (MAP) 148/51 (83) Pulse Ox 94 94 O2 Delivery Room Air Room Air Room Air 10/22/20 14:00 Temp 38.0 Pulse 86 Resp 20 B/P (MAP) 114/53 Pulse Ox 94 O2 Delivery Room Air Capillary Refill : Progress Note : Progress Note Patient examined and in no acute distress. Orders placed for Covid and sepsis work-up. Given 1 L of fluids, Tylenol, Zofran. Will reevaluate. Labs reviewed, she is Covid negative. She does have a 19,000 white count, elevated procalcitonin, elevated CRP. Infection of unknown source at this time. Her urine shows slight urinary tract infection. Chest x-ray negative for acute pathology. Orders placed for CT abdomen pelvis without contrast due to renal function. Orders placed for cefepime 1 g IV x1 now. CT abdomen pelvis reviewed no acute pathology identified. Reviewed case with Dr. Esquivel, accept admission for sepsis of unknown source. Requested patient receive antibiotics to cover for CAP. Will repeat chest x-ray in a.m. Reviewed plan of care with patient and she is agreeable with plan. Vital signs stable. She is stable to admit to medical unit. ECG Initial ECG Impression Date: Oct 22, 2020 Initial ECG Impression Time: 13:14 Initial ECG Rate: 105 Initial ECG Rhythm: Normal Sinus Initial ECG Intervals: Normal Initial ECG Impression: Nonspecific Changes Diagnostic Imaging Diagonstic Imaging: Xray Plain Films/CT/US/NM/MRI: chest Comments [facility] [place] [place] NAME: SANDEE CORTÉS [facility] REC#: [id number] PT STATUS: REG ER : 1940 PHYSICIAN: NEHA BURNETT APRN ADMIT DATE: 10/22/20/ER Signed Date of Exam:10/22/20 CHEST 1 VIEW, AP/PA ONLY INDICATION: Nausea, vomiting, diarrhea, malaise and fever with cough. COMPARISON: No priors. FINDINGS: The heart is enlarged but no gross overdistention of the vascularity and no eugenia edema or overt failure pattern. There is no pleural fluid or pneumothorax and no focal infiltrate. IMPRESSION: Enlargement of the cardiac silhouette. No other substantial abnormality. Dictated by: Dictated on workstation # [id number] Dict: 10/22/20 1409 Trans: 10/22/20 1537 [facility] [id number] Interpreted by: LOPEZ CHRIS Electronically signed by: LOPEZ CHRIS 10/22/20 1537 Reviewed: Reviewed by Ma Diagonstic Imaging: CT Plain Films/CT/US/NM/MRI: abdomen, pelvis Comments [facility] [place] [place] NAME: SANDEE CORTÉS [facility] REC#: [id number] PT STATUS: REG ER : 1940 PHYSICIAN: NEHA BURNETT APRN ADMIT DATE: 10/22/20/ER Signed Date of Exam:10/22/20 CT ABDOMEN/PELVIS WO PROCEDURE: CT abdomen and pelvis without contrast. TECHNIQUE: Multiple contiguous axial images were obtained through the abdomen and pelvis without the use of intravenous contrast. Auto Exposure Controls were utilized during the CT exam to meet ALARA standards for radiation dose reduction. INDICATION: Recent episode of nausea, vomiting, diarrhea and malaise with fever and mild cough. COMPARISON: I have no relevant comparison. There is a circumscribed 5.6 mm subpleural nodule in the right lung base. The lung bases showed no evidence of edema or pneumonia, no basilar pleural fluid. The unopacified liver appeared nonfocal and nonacute. No biliary ductal dilatation. The gallbladder unremarkable. The spleen, adrenals and non-infused pancreas unremarkable. There are no radiopaque kidney stones. There is no hydroureteronephrosis. The atherosclerotic aorta nonaneurysmal. There is a tiny fatty umbilical hernia, noninflamed. The uterus, adnexa and urinary bladder nonacute with some calcified uterine fibroids at the posterior body. There is diverticulosis of the sigmoid but no secondary features of acute diverticulitis. No bowel obstruction or viscus perforation. No perienteric or pericolonic edema. No mesenteric or retroperitoneal lymphadenopathy. Bony structures nonacute. There is no pneumatosis or free air. No inflammatory process. The atherosclerotic aorta is nonaneurysmal. IMPRESSION: No bowel, biliary or urinary tract obstruction. Noninflamed diverticulosis, benign calcified uterine fibroid. No obstructive features, inflammatory processes or acute abnormalities identified. Likely benign subpleural nodule 5 mm right lower lobe in a low risk patient. Given its morphology and location, no further workup is necessary. If this patient has a known primary malignancy, a follow-up in 6-[address] would be appropriate. Dictated by: Dictated on workstation # [id number] Dict: 10/22/20 1507 Trans: 10/22/20 1537 [facility] [phone] Interpreted by: LOPEZ CHRIS Electronically signed by: LOPEZ CHRIS 10/22/20 1537 Reviewed: Reviewed by Ma Departure Communication (Admissions) Time/Spoke to Admitting Phy: 15:47 Dr. Esquivel. Impression Primary Impression: Sepsis, unspecified organism Disposition: HOME, SELF-CARE Condition: Stable Admissions Decision to Admit Reason: Admit from ER (General) Decision to Admit/Date: Oct 22, 2020 Time/Decision to Admit Time: 15:30 Departure-Patient Inst. Referrals: KAREN TERAN DO (PCP/Family) Primary Care Physician NEHA BURNETT PRACTICE DIRECTOR Oct 22, 2020 13:05
[2020-10-22 13:06] VITALS: BP 148/51
[2020-10-22 13:14] LABS: BASOPHILS # (AUTO) 0.1 10^3/uL (0.0-0.1); BASOPHILS % (AUTO) 0 % (0-10); EOSINOPHILS % (AUTO) 0 % (0-10); HEMATOCRIT 39 % (35-52); HEMOGLOBIN 13.1 g/dL (11.5-16.0); LYMPHOCYTES # (AUTO) 0.7 10^3/uL (1.0-4.0); LYMPHOCYTES % (AUTO) 3 % (12-44); MEAN CORPUSCULAR HEMOGLOBIN 29 pg (25-34); MEAN CORPUSCULAR HGB CONC 34 g/dL (32-36); MEAN CORPUSCULAR VOLUME 86 fL (80-99); MEAN PLATELET VOLUME 10.7 fL (9.0-12.2); MONOCYTES # (AUTO) 1.3 10^3/uL (0.0-1.0); MONOCYTES % (AUTO) 7 % (0-12); NEUTROPHILS # (AUTO) 16.5 10^3/uL (1.8-7.8); NEUTROPHILS % (AUTO) 85 % (42-75); PLATELET COUNT 165 10^3/uL (130-400); WHITE BLOOD COUNT 19.3 10^3/uL (4.3-11.0)
[2020-10-22] MEDS ORDERED: ONDANSETRON 4 MG/2 ML (SDV) Z0FRAN IV ONE (13:15)
[2020-10-22] MEDS ORDERED: NS IV 1000 ML 1,000 ML IV SCH (13:15)
[2020-10-22] MEDS ORDERED: ACETAMINOPHEN 325 MG TABLET PO ONE (13:15)
[2020-10-22 13:39] LABS: ALBUMIN 3.8 GM/DL (3.2-4.5); CHLORIDE 98 MMOL/L (98-107); INR 1.3 (0.8-1.4); POTASSIUM 3.8 MMOL/L (3.6-5.0); PROTHROMBIN TIME PATIENT 16.1 SEC (12.2-14.7); SODIUM 134 MMOL/L (135-145)
[2020-10-22 13:41] LABS: CALCIUM 9.2 MG/DL (8.5-10.1)
[2020-10-22 13:42] LABS: GLUCOSE 122 MG/DL (70-105); TOTAL PROTEIN 7.2 GM/DL (6.4-8.2)
[2020-10-22 13:43] LABS: CARBON DIOXIDE 20 MMOL/L (21-32)
[2020-10-22 13:44] LABS: BILIRUBIN,TOTAL 1.7 MG/DL (0.1-1.0)
[2020-10-22 13:45] LABS: ALKALINE PHOSPHATASE 77 U/L (40-136)
[2020-10-22 13:46] LABS: CREATININE SERUM 1.45 MG/DL (0.60-1.30); GFR ESTIMATED 35
[2020-10-22 13:47] LABS: BUN/CREATININE RATIO 23
[2020-10-22 13:49] LABS: ALANINE AMINOTRANSFERASE 32 U/L (0-55)
[2020-10-22 13:52] LABS: BAND NEUTROPHILS 2 %; LYMPHOCYTES % (MANUAL) 5 %; MONOCYTES % (MANUAL) 6 %; NEUTROPHILS % (MANUAL) 87 %; RBC MORPH NORMAL
--- NOTE | 2020-10-22 14:12 | Diagnostic Imaging Report ---
INDICATION: Nausea, vomiting, diarrhea, malaise and fever with cough. COMPARISON: No priors. FINDINGS: The heart is enlarged but no gross overdistention of the vascularity and no eugenia edema or overt failure pattern. There is no pleural fluid or pneumothorax and no focal infiltrate. IMPRESSION: Enlargement of the cardiac silhouette. No other substantial abnormality. Dictated by: Dictated on workstation # [id number]
[2020-10-22 14:41] LABS: CLARITY,URINE CLEAR; COLOR,URINE YELLOW; GLUCOSE, URINE (UA) NEGATIVE (NEGATIVE); KETONES,URINE TRACE (NEGATIVE); LEUKOCYTE ESTERASE ,URINE 2+ (NEGATIVE); NITRITE,URINE NEGATIVE (NEGATIVE); PH,URINE 5.5 (5-9); PROTEIN,URINE 1+ (NEGATIVE)
[2020-10-22 14:56] LABS: BACTERIA,URINE TRACE /HPF
[2020-10-22 14:57] LABS: AMORPHOUS SEDIMENT,UR LARGE AMOR URATES /LPF; BILIRUBIN,URINE 1+ (NEGATIVE)
--- NOTE | 2020-10-22 15:19 | Diagnostic Imaging Report ---
PROCEDURE: CT abdomen and pelvis without contrast. TECHNIQUE: Multiple contiguous axial images were obtained through the abdomen and pelvis without the use of intravenous contrast. Auto Exposure Controls were utilized during the CT exam to meet ALARA standards for radiation dose reduction. INDICATION: Recent episode of nausea, vomiting, diarrhea and malaise with fever and mild cough. COMPARISON: I have no relevant comparison. There is a circumscribed 5.6 mm subpleural nodule in the right lung base. The lung bases showed no evidence of edema or pneumonia, no basilar pleural fluid. The unopacified liver appeared nonfocal and nonacute. No biliary ductal dilatation. The gallbladder unremarkable. The spleen, adrenals and non-infused pancreas unremarkable. There are no radiopaque kidney stones. There is no hydroureteronephrosis. The atherosclerotic aorta nonaneurysmal. There is a tiny fatty umbilical hernia, noninflamed. The uterus, adnexa and urinary bladder nonacute with some calcified uterine fibroids at the posterior body. There is diverticulosis of the sigmoid but no secondary features of acute diverticulitis. No bowel obstruction or viscus perforation. No perienteric or pericolonic edema. No mesenteric or retroperitoneal lymphadenopathy. Bony structures nonacute. There is no pneumatosis or free air. No inflammatory process. The atherosclerotic aorta is nonaneurysmal. IMPRESSION: No bowel, biliary or urinary tract obstruction. Noninflamed diverticulosis, benign calcified uterine fibroid. No obstructive features, inflammatory processes or acute abnormalities identified. Likely benign subpleural nodule 5 mm right lower lobe in a low risk patient. Given its morphology and location, no further workup is necessary. If this patient has a known primary malignancy, a follow-up in 6-[address] would be appropriate. Dictated by: Dictated on workstation # [id number]
[2020-10-22] MEDS ORDERED: CEFEPIME INJECTION 1,000 MG in WATER (STERILE) FOR INJECTION 10 ML IV ONE (15:45)
[2020-10-22] MEDS ORDERED: CATHETER FLUSH 10 ML SYR IV PRN (17:45)
[2020-10-22] MEDS ORDERED: ONDANSETRON 4 MG/2 ML (SDV) Z0FRAN IV PRN (17:45)
[2020-10-22 17:57] VITALS: BP 148/51
[2020-10-22] MEDS ORDERED: ENOXAPARIN 30 MG/0.3 ML (LOVENOX) SYR SC SCH (18:00)
[2020-10-22] MEDS ORDERED: RT-ALBUTEROL SULF 2.5 MG/3 ML PRE-MIX VIAL INH PRN (18:00)
[2020-10-22] MEDS: cefTRIAXone 1,000 MG/SWFI 10 ML IV PUSH IV SCH ×2 (18:21)
[2020-10-22] MEDS: AZITHROMYCIN 500 MG/NS 250 ML IVPB IV SCH ×2 (18:21)
[2020-10-22] MEDS: NS IV 1000 ML 1,000 ML IV SCH (18:21)
[2020-10-22 20:00] VITALS: BP 183/94
[2020-10-22] MEDS: ACETAMINOPHEN 325 MG TABLET PO PRN (21:45)
[2020-10-22 22:29] VITALS: BP 124/78
[2020-10-22 23:26] VITALS: BP 108/54
[2020-10-23] VITALS (9 sets, daily range): BP systolic 87–124; BP diastolic 48–68
[2020-10-23 06:14] LABS: EOSINOPHILS % (AUTO) 0 % (0-10); MONOCYTES # (AUTO) 1.4 10^3/uL (0.0-1.0); MONOCYTES % (AUTO) 7 % (0-12)
[2020-10-23 06:15] LABS: BASOPHILS # (AUTO) 0.1 10^3/uL (0.0-0.1); BASOPHILS % (AUTO) 0 % (0-10); HEMATOCRIT 33 % (35-52); HEMOGLOBIN 11.1 g/dL (11.5-16.0); LYMPHOCYTES # (AUTO) 1.3 10^3/uL (1.0-4.0); LYMPHOCYTES % (AUTO) 6 % (12-44); MEAN CORPUSCULAR HEMOGLOBIN 29 pg (25-34); MEAN CORPUSCULAR HGB CONC 34 g/dL (32-36); MEAN CORPUSCULAR VOLUME 86 fL (80-99); MEAN PLATELET VOLUME 11.4 fL (9.0-12.2); NEUTROPHILS # (AUTO) 18.2 10^3/uL (1.8-7.8); NEUTROPHILS % (AUTO) 84 % (42-75); PLATELET COUNT 133 10^3/uL (130-400); WHITE BLOOD COUNT 21.7 10^3/uL (4.3-11.0)
[2020-10-23 06:29] LABS: POTASSIUM 3.4 MMOL/L (3.6-5.0)
[2020-10-23 06:31] LABS: CALCIUM 8.3 MG/DL (8.5-10.1)
[2020-10-23 06:35] LABS: CREATININE SERUM 1.14 MG/DL (0.60-1.30)
--- NOTE | 2020-10-23 07:55 | Diagnostic Imaging Report ---
INDICATION: Nausea and vomiting with malaise and fever. COMPARISON: 10/22/2020. FINDINGS: Poor inspiratory effort noted with bibasilar atelectasis. Heart upper limits of normal. No evidence of pulmonary edema. No pneumothorax or pleural effusion. IMPRESSION: Cardiomegaly with some basilar atelectasis. No acute changes. Dictated by: Dictated on workstation # [id number]
[2020-10-23] MEDS ORDERED: DONE5TAB30 PO (08:28)
[2020-10-23] MEDS ORDERED: LISI10TA25 PO (08:28)
[2020-10-23] MEDS: NS IV 1000 ML 1,000 ML IV SCH ×2 (08:55→20:15)
[2020-10-23] MEDS: RT-ALBUTEROL/IPRATROPIUM 3 ML (DUONEB) VIAL IH SCH ×3 (10:30→19:20)
--- NOTE | 2020-10-23 13:53 | History & Physical-Hospitalist ---
History of Present Illness HPI/Chief Complaint Pt is a 80yoCF with a PMH of HTN who presented to the ER due to fever and fatigue. She is somewhat confused and cannot recall all of her medical history. Her siser helps to fill in the gaps. She reports she has been quite fatigued for a week and had diarrhea. Her sister visited her yesterday and found her to bee quite fatigued and covered in blankets chilling. She checked her temperature and it was 102 so she brought her in for evaluation. She was found to have a leukocytosis with fever and tachycardia on arrival but no source was identified. She was admitted for sepsis of unkown origin. This morning she reports feeling somewhat better though still nto back to normal. Source: patient Date Seen 10/23/20 Time Seen by a Provider: 15:58 Attending Physician Kevin Esquivel MD PCP Mary Carmen Conte DO Referring Physician Date of Admission Oct 22, 2020 at 16:16 Home Medications & Allergies Home Medications Reviewed patient Home Medication Reconciliation performed by pharmacy medication reconciliations small electric engine technician and/or nursing. Patients Allergies have been reviewed. Allergies Allergies Coded Allergies Penicillins (Verified Allergy, Mild, RASH, 06/28/20) prednisone (Verified Allergy, Mild, RASH, 06/28/20) Past Rasjina-Trnahm-Ybychk Hx Patient Social History Tobacco Use?: No Smoking Status: Never a Smoker Smokeless Tobacco Frequency: Never a User Use of E-Cig and/or Vaping dev: No Substance use?: No Alcohol Use?: No Pt feels they are or have been: No Immunizations Up To Date Date of Influenza Vaccine: Jan 10, 2018 First/Initial COVID19 Vaccinat: 05/09/20 Second COVID19 Vaccination Hollis: 06/06/20 Tetanus Booster (TDap): Unknown Hepatitis A: No Hepatitis B: No Date of Pneumonia Vaccine: Oct 22, 2015 Seasonal Allergies Seasonal Allergies: Yes Current Status status: No status: No Advance Directives: No Communicates: Verbally Primary Language: Moldovan Preferred Spoken Language: Moldovan Is interpretation needed?: No Sensory deficits: Vision impairment Implanted or Applied Medical D: None Past Medical History Hypertension Sexually Transmitted Disease: No HIV/AIDS: No Gastroesophageal Reflux, Polyps Loss of Vision: Denies Hearing Impairment: Denies Blood Disorders: No Adverse Reaction/Blood Tranf: No (N/A) Family Medical History Reviewed Nursing Family Hx No Pertinent Family Hx Review of Systems Constitutional: chills, fever, malaise, weakness Respiratory: cough, short of breath Gastrointestinal: abdominal pain, diarrhea; No nausea, No vomiting Genitourinary: No dysuria, No frequency Musculoskeletal: no symptoms reported Skin: no symptoms reported Psychiatric/Neurological: No Symptoms Reported Physical Exam Physical Exam Vital Signs Vital Signs - First Documented 10/22/20 17:57 FiO2 21 Capillary Refill : Less Than 3 Seconds Height, Weight, BMI Height: 5'0.00" Weight: 142lbs. 0.0oz. 64.442716ed; 20.13 BMI Method: General Appearance: No Apparent Distress, WD/WN, Thin HEENT: PERRL/EOMI, Moist Mucous Membranes; No Scleral Icterus (L), No Scleral I cterus (R) Neck: Normal Inspection, Supple Respiratory: Lungs Clear, No Accessory Muscle Use, No Respiratory Distress Cardiovascular: Regular Rate, Rhythm, No JVD, No Murmur Gastrointestinal: Normal Bowel Sounds, Non Tender, Soft Extremity: Normal Capillary Refill, No Calf Tenderness, No Pedal Edema Neurologic/Psychiatric: Alert, Oriented x3 (forgetful of some parts of medical history), Normal Mood/Affect Skin: Normal Color, Warm/Dry Results Results/Procedures Labs Laboratory Tests 10/22/20 12:57 10/23/20 05:40 Patient resulted labs reviewed. Imaging [facility] [place], [place] NAME: SANDEE CORTÉS [facility] REC#: [id number] PT STATUS: REG ER : 1940 PHYSICIAN: NEHA BURNETT APRN ADMIT DATE: 10/22/20/ER Signed Date of Exam:10/22/20 CHEST 1 VIEW, AP/PA ONLY INDICATION: Nausea, vomiting, diarrhea, malaise and fever with cough. COMPARISON: No priors. FINDINGS: The heart is enlarged but no gross overdistention of the vascularity and no eugenia edema or overt failure pattern. There is no pleural fluid or pneumothorax and no focal infiltrate. IMPRESSION: Enlargement of the cardiac silhouette. No other substantial abnormality. Dictated by: Dictated on workstation # [id number] Dict: 10/22/20 1409 Trans: 10/22/20 1537 [facility] [id number] Interpreted by: LOPEZ CHRIS Electronically signed by: LOPEZ CHRIS 10/22/20 1537 [facility] [place] NAME: SANDEE CORTÉS [facility] REC#: [id number] PT STATUS: REG ER : 1940 PHYSICIAN: NEHA BURNETT NETWORK ENGINEER ADMINISTRATOR ADMIT DATE: 10/22/20/ER Signed Date of Exam:10/22/20 CT ABDOMEN/PELVIS WO PROCEDURE: CT abdomen and pelvis without contrast. TECHNIQUE: Multiple contiguous axial images were obtained through the abdomen and pelvis without the use of intravenous contrast. Auto Exposure Controls were utilized during the CT exam to meet ALARA standards for radiation dose reduction. INDICATION: Recent episode of nausea, vomiting, diarrhea and malaise with fever and mild cough. COMPARISON: I have no relevant comparison. There is a circumscribed 5.6 mm subpleural nodule in the right lung base. The lung bases showed no evidence of edema or pneumonia, no basilar pleural fluid. The unopacified liver appeared nonfocal and nonacute. No biliary ductal dilatation. The gallbladder unremarkable. The spleen, adrenals and non-infused pancreas unremarkable. There are no radiopaque kidney stones. There is no hydroureteronephrosis. The atherosclerotic aorta nonaneurysmal. There is a tiny fatty umbilical hernia, noninflamed. The uterus, adnexa and urinary bladder nonacute with some calcified uterine fibroids at the posterior body. There is diverticulosis of the sigmoid but no secondary features of acute diverticulitis. No bowel obstruction or viscus perforation. No perienteric or pericolonic edema. No mesenteric or retroperitoneal lymphadenopathy. Bony structures nonacute. There is no pneumatosis or free air. No inflammatory process. The atherosclerotic aorta is nonaneurysmal. IMPRESSION: No bowel, biliary or urinary tract obstruction. Noninflamed diverticulosis, benign calcified uterine fibroid. No obstructive features, inflammatory processes or acute abnormalities identified. Likely benign subpleural nodule 5 mm right lower lobe in a low risk patient. Given its morphology and location, no further workup is necessary. If this patient has a known primary malignancy, a follow-up in 6-[address] would be appropriate. Dictated by: Dictated on workstation # [id number] Dict: 10/22/20 1507 Trans: 10/22/20 1537 [facility] [id number] Interpreted by: LOPEZ CHRIS Electronically signed by: LOPEZ CHRIS 10/22/20 1537 Assessment/Plan Admission Diagnosis Sepsis Admission Status: Inpatient Order (span 2 midnights) Reason for Inpatient Admission: see below Assessment and Plan Sepsis etiology unclear, urinary tract infection most likely Procal 72 Stool cultures pending Continue IV abx COVID swab negative and vaccainted, consider repeat swab is fevers again or hypoxic HTN Recently diagnosed but BP quite low Likely hypovolemic from diarrhea nad not due to sepsis Continue IVF JOSE Continue IVF trend KEVIN ESQUIVEL MD Oct 23, 2020 13:53
[2020-10-23] MEDS: ENOXAPARIN 40 MG/0.4 ML (LOVENOX) SYR SC SCH (17:40)
[2020-10-23] MEDS: cefTRIAXone 1,000 MG/SWFI 10 ML IV PUSH IV SCH ×2 (17:40)
[2020-10-23] MEDS: AZITHROMYCIN 500 MG/NS 250 ML IVPB IV SCH ×2 (17:40)
[2020-10-23] MEDS: DONEPEZIL 5 MG (ARICEPT) TAB PO SCH (20:14)
[2020-10-24 03:56] VITALS: BP 125/62
[2020-10-24] MEDS: NS IV 1000 ML 1,000 ML IV SCH ×3 (04:07→10:38)
[2020-10-24 04:59] LABS: MEAN PLATELET VOLUME 11.3 fL (9.0-12.2); WHITE BLOOD COUNT 13.8 10^3/uL (4.3-11.0)
[2020-10-24 05:10] LABS: CHLORIDE 113 MMOL/L (98-107); POTASSIUM 3.5 MMOL/L (3.6-5.0); SODIUM 141 MMOL/L (135-145)
[2020-10-24 05:12] LABS: CALCIUM 7.8 MG/DL (8.5-10.1); GLUCOSE 91 MG/DL (70-105)
[2020-10-24 05:14] LABS: CARBON DIOXIDE 17 MMOL/L (21-32)
[2020-10-24 05:16] LABS: CREATININE SERUM 0.73 MG/DL (0.60-1.30); GFR ESTIMATED > 60
[2020-10-24 05:17] LABS: BUN/CREATININE RATIO 18
[2020-10-24] MEDS: RT-ALBUTEROL/IPRATROPIUM 3 ML (DUONEB) VIAL IH SCH ×4 (07:38→18:02)
[2020-10-24 08:56] VITALS: BP 138/59
--- NOTE | 2020-10-24 09:28 | Speech Therapy Progress Note ---
Therapy Progress Note ST orders received for cognitive evaluation. ST screened the patient who is doing well. No fevers and feeling much better. Patient is clear and able to answer questions without difficulty at this time. Discharge evaluation order due to no need at this time. LAURA MORAES Oct 24, 2020 09:28
--- NOTE | 2020-10-24 09:40 | Progress Note - Hospitalist ---
Subjective HPI/CC On Admission Date Seen by Provider: Oct 24, 2020 Time Seen by Provider: 09:35 Pt is a 80yoCF with a PMH of HTN who presented to the ER due to fever and fatigue. She is somewhat confused and cannot recall all of her medical history. Her siser helps to fill in the gaps. She reports she has been quite fatigued for a week and had diarrhea. Her sister visited her yesterday and found her to bee quite fatigued and covered in blankets chilling. She checked her temperature and it was 102 so she brought her in for evaluation. She was found to have a leukocytosis with fever and tachycardia on arrival but no source was identified. She was admitted for sepsis of unkown origin. This morning she reports feeling somewhat better though still nto back to normal. Subjective/Events-last exam Pt reports not feeling much better. Having right upper quadrant abdominal pain. Focused Exam Lactate Level 10/22/20 13:29: Lactic Acid Level 1.63 Objective Exam Vital Signs Vital Signs Date Time Temp Pulse Resp B/P (MAP) Pulse Ox O2 Delivery O2 Flow Rate FiO2 10/24/20 08:56 37.3 92 16 138/59 (85) 93 Room Air 10/22/20 17:57 21 Capillary Refill : Less Than 3 Seconds General Appearance: No Apparent Distress, WD/WN Cardiovascular: Regular Rate, Rhythm, No Murmur Gastrointestinal: Normal Bowel Sounds, Non Tender, Soft Neurologic/Psychiatric: Alert, Oriented x3 Results/Procedures Lab Laboratory Tests 10/24/20 04:42 Patient resulted labs reviewed. Assessment/Plan Assessment and Plan Assess & Plan/Chief Complaint Sepsis etiology unclear, urinary tract infection most likely Procal down to 64 Stool cultures pending Continue IV abx COVID swab negative x2 and vaccinated Will get RUQ usg to evaluate gallbladder HTN BP improved Resume home meds if continues to rise JOSE- resolved Continue IVF but DC rate Dementia Patient reports forgetfulness On Aricept at home Speech consult for cognitive eval DVT ppx: KEVIN Verdin MD Oct 24, 2020 09:39
--- NOTE | 2020-10-24 11:31 | Diagnostic Imaging Report ---
PROCEDURE: US Gallbladder. TECHNIQUE: Multiple real-time grayscale images were obtained over the right upper quadrant in various projections. INDICATION: Right upper quadrant pain There is a complex cystic structure of the lateral segment left lobe liver measuring 6.3 x 3.5 x 8.0 cm. The gallbladder is clear with no stones or wall thickening. The common duct is not dilated. Pancreas is suboptimally seen because of bowel gas. Aorta and IVC appear normal. Right kidney measures 10 cm in length and appears normal. IMPRESSION: Large area of decreased echogenicity lateral segment left lobe of liver. This could be neoplasm or abscess. Dictated by: Dictated on workstation # [id number]
--- NOTE | 2020-10-24 11:57 | Physical Therapy Evaluation ---
PT Evaluation-General Medical Diagnosis Admission Date Oct 22, 2020 at 16:16 Medical Diagnosis: sepsis Onset Date: Oct 22, 2020 Therapy Diagnosis Therapy Diagnosis: debility/weakness Height/Weight Height (Feet): 5 Height (Inches): 0.00 Weight (Pounds): 142 Weight (Ounces): 0.0 Precautions Precautions/Isolations: Standard Precautions Referral Physician: Alvin Reason for Referral: Evaluation/Treatment Medical History Pertinent Medical History: HTN Current History ER secondary to nausea/vomiting and diarrhea Reviewed History: Yes Social History Home: Single Level Current Living Status: Alone Entry Into Home: Stairs Without Railing PT Steps Into Home: 2 Prior Prior Level of Function SCALE: Activities may be completed with or without assistive devices. 1-Ykqkskwuhp-gvfbeih completes the activity by him/herself with no assistance from a helper. 5-Set-up or Clean-up Assistance-helper sets up or cleans up; patient completes activity. [place] assists only prior to or following the activity. 4-Supervision or Touching Assistance-helper provides verbal cues and/or touching/steadying and/or contact guard assistance as patient completes activity. Assistance may be provided throughout the activity or intermittently. 3-Partial/Moderate Assistance-helper does LESS THAN HALF the effort. [place] lifts, holds or supports trunk or limbs, but provides less than half the effort. 2-Substantial/Maximal Assistance-helper does MORE THAN HALF the effort. [place] lifts or holds trunk or limbs and provides more than half the effort. 9-Apngfcmgh-xmucch does ALL the effort. Patient does none of the effort to complete the activity. Or, the assistance of 2 or more helpers is required for the patient to complete the activity. If activity was not attempted, code reason: 7-Patient Refused. 9-Not Applicable-not attempted and the patient did not perform the activity before the current illness, exacerbation or injury. 10-Not Attempted due to Environmental Limitations-(lack of equipment, weather restraints, etc.). 88-Not Attempted due to Medical Conditions or Safety Concerns. Bed Mobility: 6 Transfers (B,C,W/C): 6 Gait: 6 Stairs: 6 Indoor Mobility (Ambulation): Independent Stairs: Independent Prior Devices Use: None PT Evaluation-Current Subjective Patient agrees to PT. Objective Patient Orientation: Normal For Age Attachments: IV ROM/Strength ROM Lower Extremities bilateral LE WFL Strength Lower Extremities 4/5 grossly bilateral LE Integumentary/Posture Integumentary refer to nursing notes Bowel Incontinence: No Bladder Incontinence: No Posture WFL Neuromuscular (Tone, Coordination, Reflexes) grossly intact Sensory Vision: Functional Hearing: Functional Sensation Right Lower Extremit: Intact Sensation Left Lower Extremity: Intact Transfers Roll Left to Right (QC): 6 Sit to Lying (QC): 6 Lying to Sitting/Side of Bed(Q: 6 Sit to Stand (QC): 6 Toilet Transfer (QC): 6 Gait Does the Patient Walk?: Yes Mode of Locomotion: Walk Anticipated Mode of Locomotion: Walk Walk 10 feet (QC): 5 Walk 50 ft with 2 Turns(QC): 5 Walk 150 ft (QC): 5 Distance: 250' Gait Assistive Device: FWW Comments/Gait Description FWW for energy conservation Balance Sitting Static: Normal Sitting Dynamic: Normal Standing Static: Normal Standing Dynamic: Normal Picking up an Object (QC): 6 Assessment/Needs 80 y.o. female, will be seen x 2 sessions to ensure patient functional mobility and strength remain at independent LOF safely. Patient agrees. Rehab Potential: Fair PT Short Term Goals Short Term Goals Time Frame: Oct 25, 2020 Roll Left & Right: 6 Sit to lyin Lying to sitting on side of be: 6 Sit to stand: 6 Chair/cck-dd-xvphr transfer: 6 Toilet transfer: 6 Walk 10 feet: 6 Walk 50 feet with two turns: 6 Walk 150 feet: 6 PT Plan Treatment/Plan Treatment Plan: Continue Plan of Care Treatment Plan: Education, Functional Activity Joselin, Functional Strength, Gait, Safety, Therapeutic Exercise, Transfers Treatment Duration: Oct 25, 2020 Frequency: 2 times per week Estimated Hrs Per Day: .25 hour per day Patient and/or Family Agrees t: Yes Time/GCodes Time In: 1110 Time Out: 1120 Total Billed Treatment Time: 10 Total Billed Treatment 1 visit EVModC 10 min AYE HOLLY PT Oct 24, 2020 11:57
[2020-10-24 12:04] VITALS: BP 125/66
[2020-10-24] MEDS: LACTOBACILLUS ACIDOPHILUS (PROBIOTIC) CAPSULE PO SCH ×2 (13:52→17:22)
--- NOTE | 2020-10-24 15:07 | Consultation - Surgery ---
History of Present Illness History of Present Illness Patient Consulted On(dayanna/time) 10/24/20 15:07 Date Seen by Provider: Oct 24, 2020 Time Seen by Provider: 15:07 History of Present Illness Consult requested by Dr. Kaplan for questionable liver mass versus abscess. Patient is a 80-year-old female who was admitted with sepsis she has been having nausea vomiting fever and diarrhea. Patient states that she is feeling better especially this morning. She started having some slight right upper quadrant abdominal pain. Moderate discomfort no radiation. Nothing seem to make it better or worse. Patient had a gallbladder ultrasound this morning which dem onstrated a hypoechoic area on the left liver which could represent a neoplasm or abscess. She is tolerating diet without difficulty. Denies any nausea vomiting fever sweats chills shortness of breath or chest pain at this time. Allergies and Home Medications Allergies Coded Allergies: Penicillins (Verified Allergy, Mild, RASH, 06/28/20) prednisone (Verified Allergy, Mild, RASH, 06/28/20) Home Medications Donepezil HCl 5 Mg Tablet, 5 MG PO HS, (Reported) Last Action: Continued Lisinopril 10 Mg Tablet, 10 MG PO DAILY, (Reported) Last Action: Held Patient Home Medication List Home Medication List Reviewed: Yes Past Oqjwxih-Acxahw-Izyhvu Hx Patient Social History Smoking Status: Never a Smoker 2nd Hand Smoke Exposure: No Recent Hopitalizations: No Alcohol Use?: No Have you traveled recently?: No Immunizations Up To Date Date of Pneumonia Vaccine: Oct 22, 2015 Date of Influenza Vaccine: Jan 10, 2018 Seasonal Allergies Seasonal Allergies: Yes Surgeries History of Surgeries: No Respiratory History of Respiratory Disorde: No Cardiovascular History of Cardiac Disorders: No Cardiac Disorders: Hypertension Neurological History of Neurological Disord: No Reproductive System Sexually Transmitted Disease: No HIV/AIDS: No Genitourinary History of Genitourinary Disor: No Gastrointestinal History of Gastrointestinal Di: Yes Gastrointestinal Disorders: Gastroesophageal Reflux, Polyps Musculoskeletal History of Musculoskeletal Dis: No Endocrine History of Endocrine Disorders: No HEENT History of HEENT Disorders: Yes (GLASSES) Loss of Vision: Denies Hearing Impairment: Denies Cancer History of Cancer: No Psychosocial History of Psychiatric Problem: No Integumentary History of Skin or Integumenta: No Blood Transfusions History of Blood Disorders: No Adverse Reaction to a Blood Tr: No (N/A) Reviewed Nursing Assessment Reviewed/Agree w Nursing PMH: Yes Family Medical History Significant Family History: No Pertinent Family Hx Review of Systems-General Constitutional: fever EENTM: No blurred vision, No double vision Respiratory: No dyspnea on exertion, No short of breath Cardiovascular: No chest pain, No palpitations Gastrointestinal: abdominal pain (RUQ), diarrhea, nausea, vomiting Genitourinary: No decreased output, No discharge Musculoskeletal: No back pain, No joint pain Skin: No change in color, No change in hair/nails Psychiatric/Neurological: Denies Anxiety, Denies Depressed, Denies Emotional Problems All Other Systems Reviewed Negative Unless Noted: Yes (Negative excepted noted.) Physical Exam-General Problems Physical Exam Vital Signs Vital Signs - First Documented 10/22/20 17:57 FiO2 21 Capillary Refill : Less Than 3 Seconds General Appearance: WD/WN, no apparent distress HEENT: PERRL/EOMI, normal ENT inspection Neck: non-tender, supple Respiratory: chest non-tender, no respiratory distress Cardiovascular: regular rate, rhythm, no JVD Gastrointestinal: tenderness (Minimal right upper quadrant) Rectal: deferred Back: normal inspection, no CVA tenderness, no vertebral tenderness Extremities: normal range of motion, non-tender, normal inspection Neurologic/Psychiatric: no motor/sensory deficits, alert, normal mood/affect Skin: normal color, warm/dry Lymphatic: no adenopathy Data Review Labs Laboratory Tests 10/23/20 16:30: Influenza Type A (RT-PCR) Not Detected, Influenza Type B (RT-PCR) Not Detected, SARS-CoV-2 RNA (RT-PCR) Not Detected 10/24/20 04:42: White Blood Count 13.8H, Red Blood Count 3.46L, Hemoglobin 10.0L, Hematocrit 30L , Mean Corpuscular Volume 86, Mean Corpuscular Hemoglobin 29, Mean Corpuscular Hemoglobin Concent 34, Red Cell Distribution Width 13.8, Platelet Count 127L, Mean Platelet Volume 11.3, Percent Immature Platelet Fraction 10.0H, Sodium Level 141, Potassium Level 3.5L, Chloride Level 113H, Carbon Dioxide Level 17L, Anion Gap 11, Blood Urea Nitrogen 13, Creatinine 0.73, Estimat Glomerular Filtration Rate > 60, BUN/Creatinine Ratio 18, Glucose Level 91, Calcium Level 7.8L, Procalcitonin 64.78H Microbiology 10/22/20 Blood Culture - Preliminary, Resulted No growth 10/22/20 Urine Culture - Final, Complete Mixed Bacterial Alana Strep, Beta Hemolytic Group B Assessment/Plan Assessment/Plan Assessment/Plan Patient admitted with sepsis unknown source likely urinary tract infection. Patient is continue to improve. She was found to have liver lesion either neoplasm versus abscess.. Patient will need further work-up with CT scan of the abdomen pelvis with IV contrast liver protocol to further evaluate. Once this was performed we discussed imaging with Dr. Barrios and we will have him place a drain tomorrow for it looks more like a liver abscess. Patient and patient's sister were discussed these findings and plan and they agree. Continue on IV fluids and IV antibiotics. MARTA AGRAWAL DO Oct 24, 2020 15:07
[2020-10-24] MEDS ORDERED: HOLD METFORMIN - RECEIVED CONTRAST 20 ML VIAL IV SCH (15:15)
[2020-10-24] MEDS ORDERED: NS 100 ML (IVPB) BAG IV ONE (15:15)
[2020-10-24] MEDS ORDERED: IOHEXOL 350 MG/ML 100 ML (OMNIPAQUE 350) VIAL IV ONE (15:15)
[2020-10-24 16:12] VITALS: BP 144/68
[2020-10-24] MEDS: ENOXAPARIN 40 MG/0.4 ML (LOVENOX) SYR SC SCH (16:46)
[2020-10-24] MEDS: AZITHROMYCIN 500 MG/NS 250 ML IVPB IV SCH ×2 (17:21)
[2020-10-24] MEDS: cefTRIAXone 1,000 MG/SWFI 10 ML IV PUSH IV SCH ×2 (17:22)
[2020-10-24 19:24] VITALS: BP 160/75
[2020-10-24] MEDS: DONEPEZIL 5 MG (ARICEPT) TAB PO SCH (20:17)
[2020-10-24] MEDS: ACETAMINOPHEN 325 MG TABLET PO PRN (20:18)
[2020-10-24 23:30] VITALS: BP 139/65
[2020-10-25] VITALS (21 sets, daily range): BP systolic 123–186; BP diastolic 65–99
[2020-10-25 06:07] LABS: BASOPHILS % (AUTO) 0 % (0-10); EOSINOPHILS # (AUTO) 0.1 10^3/uL (0.0-0.3); EOSINOPHILS % (AUTO) 0 % (0-10); HEMATOCRIT 30 % (35-52); HEMOGLOBIN 10.2 g/dL (11.5-16.0); LYMPHOCYTES # (AUTO) 1.2 10^3/uL (1.0-4.0); LYMPHOCYTES % (AUTO) 9 % (12-44); MEAN CORPUSCULAR HEMOGLOBIN 29 pg (25-34); MEAN CORPUSCULAR HGB CONC 34 g/dL (32-36); MEAN CORPUSCULAR VOLUME 86 fL (80-99); MEAN PLATELET VOLUME 11.9 fL (9.0-12.2); MONOCYTES # (AUTO) 1.4 10^3/uL (0.0-1.0); MONOCYTES % (AUTO) 11 % (0-12); NEUTROPHILS # (AUTO) 9.6 10^3/uL (1.8-7.8); NEUTROPHILS % (AUTO) 75 % (42-75); PLATELET COUNT 145 10^3/uL (130-400); WHITE BLOOD COUNT 12.8 10^3/uL (4.3-11.0)
[2020-10-25 06:45] LABS: BAND NEUTROPHILS 6 %; LYMPHOCYTES % (MANUAL) 8 %; MONOCYTES % (MANUAL) 9 %; NEUTROPHILS % (MANUAL) 77 %
[2020-10-25 06:46] LABS: TOXIC GRANULATION/VACUOLAZATIO 1+
[2020-10-25 06:57] LABS: INR 1.1 (0.8-1.4); PROTHROMBIN TIME PATIENT 14.2 SEC (12.2-14.7)
[2020-10-25] MEDS: LACTOBACILLUS ACIDOPHILUS (PROBIOTIC) CAPSULE PO SCH ×3 (07:42→18:12)
--- NOTE | 2020-10-25 08:28 | Diagnostic Imaging Report ---
PROCEDURE: CT abdomen and pelvis with contrast. TECHNIQUE: Multiple contiguous axial images were obtained through the abdomen and pelvis after administration of intravenous contrast. Auto Exposure Controls were utilized during the CT exam to meet ALARA standards for radiation dose reduction. All CT scans use one or more of the following dose optimizing techniques: automated exposure control, MA and/or KvP adjustment based on patient size and exam type or iterative reconstruction. INDICATION: Liver mass. Correlation is made with CT study from 10/22/2020 and ultrasound study from 10/24/2020. FINDINGS: Imaging through the lung bases demonstrates small right and trace left pleural effusion. There are some infiltrates or atelectasis bilateral lower lobes as well. There is a complex mass in the left lobe of the liver measuring 4.1 x 7.4 cm. This is primarily low density with internal septations, suspicious for a liver abscess. No internal gas is present. Gallbladder is unremarkable. There is no biliary duct dilatation. Pancreas and spleen are unremarkable. No adrenal mass is detected. Kidneys are unremarkable apart from small probable cyst lower pole right kidney. Aorta is calcified but not aneurysmal. Bowel loops are normal caliber. There is diverticulosis of the sigmoid and descending colon but no evidence of acute diverticulitis. No free fluid is identified. The uterus contains calcified fibroid. Bladder is unremarkable. No definite abdominal or pelvic lymphadenopathy is detected. IMPRESSION: 1. Bilateral pleural effusions, right greater with bibasilar infiltrates or atelectasis. 2. Complex, septated low-density mass left lobe of the liver, concerning for a hepatic abscess. 3. Uncomplicated diverticulosis. Dictated by: Dictated on workstation # [id number]
--- NOTE | 2020-10-25 10:04 | Physical Therapy Progress Note ---
Therapy Progress Note Patient declined PT stating she is up independently and is going to have surgery this afternoon. PT will reassess patient in a.m. 1 ref ([id number]) AYE HOLLY PT Oct 25, 2020 10:04
--- NOTE | 2020-10-25 10:11 | Progress Note - Hospitalist ---
Subjective HPI/CC On Admission Date Seen by Provider: Oct 25, 2020 Time Seen by Provider: 10:05 Pt is a 80yoCF with a PMH of HTN who presented to the ER due to fever and fatigue. She is somewhat confused and cannot recall all of her medical history. Her siser helps to fill in the gaps. She reports she has been quite fatigued for a week and had diarrhea. Her sister visited her yesterday and found her to bee quite fatigued and covered in blankets chilling. She checked her temperature and it was 102 so she brought her in for evaluation. She was found to have a leukocytosis with fever and tachycardia on arrival but no source was identified. She was admitted for sepsis of unkown origin. This morning she reports feeling somewhat better though still nto back to normal. Subjective/Events-last exam Pt reports doing well. Took a shower and feels better. Discussed results of imaging and possible abscess on liver. Plan to drainage today. She is in agreement. Focused Exam Lactate Level 10/22/20 13:29: Lactic Acid Level 1.63 Objective Exam Vital Signs Vital Signs Date Time Temp Pulse Resp B/P (MAP) Pulse Ox O2 Delivery O2 Flow Rate FiO2 10/25/20 08:00 Room Air 10/25/20 07:53 37.7 101 22 168/75 (106) 94 10/22/20 17:57 21 Capillary Refill : Less Than 3 Seconds General Appearance: No Apparent Distress, WD/WN Cardiovascular: Regular Rate, Rhythm, No Murmur Gastrointestinal: Normal Bowel Sounds, Non Tender, Soft Neurologic/Psychiatric: Alert, Oriented x3 Results/Procedures Lab Laboratory Tests 10/25/20 05:30 Patient resulted labs reviewed. Assessment/Plan Assessment and Plan Assess & Plan/Chief Complaint Sepsis etiology unclear, possible liver abscess on imaging Procal decreasing Stool cultures pending Continue IV abx add flagyl COVID swab negative x2 and vaccinated Plan for drainage today HTN Resume home meds JOSE- resolved DC IVF Dementia Patient reports forgetfulness On Aricept at home Speech consult for cognitive eval DVT ppx: KEVIN Verdin MD Oct 25, 2020 10:11
[2020-10-25] MEDS: fentaNYL INJ 100 MCG/2 ML AMP IVP ONE ×2 (12:49→14:16)
[2020-10-25] MEDS ORDERED: LIDOCAINE 1% INJ 20 ML 20 ML VIAL INJ ONE (12:49)
[2020-10-25] MEDS: LIDOCAINE 1% INJ 20 ML 20 ML VIAL INJ ONE ×2 (12:49→14:16)
[2020-10-25] MEDS ORDERED: fentaNYL INJ 100 MCG/2 ML AMP IVP ONE (12:49)
--- NOTE | 2020-10-25 13:40 | Pre-Op Note & Conscious Sedat ---
Pre-Operative Progress Note H&P Reviewed The H&P was reviewed, patient examined and no changes noted. Date H&P Reviewed: Oct 25, 2020 Time H&P Reviewed: 12:00 Pre-Op Diagnosis: Liver abscess Conscious Sedation Pre-Proced Time 12:00 ASA Score 2 For ASA 3 and 4: Consider anesthesia and medical clearance. Also, for patients with a history of failed moderate sedation consider anesthesia. Airway Lungs Heart ASA score ASA 1: a normal healthy patient ASA 2: a patient with a mild systemic disease (mid diabetes, controlled hypertension, obesity ASA 3: a patient with a severe systemic disease that limits activity (angina, COPD, prior Myocardial infarction) ASA 4: a patient with an incapacitating disease that is a constant threat to life (CHF, renal failure) ASA 5: a moribund patient not expected to survive 24 hrs. (ruptured aneurysm) ASA 6: a declared brain- patient whose organs are being harvested. For emergent operations, add the letter E after the classification Mallampati Classification Grade 2 Sedation Plan Analgesia, Amnesia, Plan communicated to team members, Discussed options with patient/fam, Discussed risks with patient/fam The patient is an appropriate candidate to undergo the planned procedure, sedation, and anesthesia. The patient immediately re-assessed prior to indication. JUAN CERVANTES MD Oct 25, 2020 13:40
--- NOTE | 2020-10-25 13:43 | Diagnostic Imaging Report ---
INDICATION: Liver abscess. Patient presents for CT-guided drainage. TECHNIQUE: All CT scans use one or more of the following dose optimizing techniques: automated exposure control, MA and/or KvP adjustment based on patient size and exam type or iterative reconstruction. Patient brought to the CT suite placed on table in supine position. Axial imaging through abdomen was performed evaluating appropriate entry site. The procedure was performed utilizing conscious sedation with radiology nursing and constant patient monitoring. Patient was given 50 mcg of fentanyl intravenously. Total procedure time was approximately 26 minutes. Right upper quadrant was prepped and draped in the usual sterile fashion. Small amount of 1% lidocaine was utilized for local anesthesia. A Yueh needle was utilized to access the large low-density mass left lobe of the liver. A Yueh was exchanged over an 035 guidewire. Tract was dilated. 10-Icelandic all-purpose catheter was placed. Initial images demonstrate the pigtail portion of the catheter to be slightly posterior position in relation to the abscess therefore the drain was pulled back. A drain was positioned with pigtail formed in the abscess. The catheter was fixed to the patient's skin and placed to Perla drain. The patient tolerated the procedure well and left the department in stable condition. IMPRESSION: CT-guided percutaneous drain placement into left lobe of liver abscess. Dictated by: Dictated on workstation # [id number]
--- NOTE | 2020-10-25 13:58 | ST Cognitive Linguistic Eval ---
Speech Evaluation-General Medical Diagnosis sepsis Onset Date: Oct 22, 2020 Therapy Diagnosis Therapy Diagnosis: Cognitive-communication Referral Referring Physician: Dr. Esquivel Medical History Pertinent Medical History: HTN Reviewed History: Yes Social History Current Living Status: Alone Speech PLF-Current Status Prior Level of Function Patient lives in her home alone where she was independent for most of her daily needs. Subjective Patient was pleasant and cooperative with the cognitive assessment. Language Eval: Auditory Comprehends Simple Yes/No Ques: Functional Follows 1-Step Commands: Functional Follows Complex Directions: Mild Follows General Conversations: Mild Language Eval: Verbal Language Completes Spontaneous Greeting: Functional Imitates Simple Words/Phrases: Functional Word Finding: Mild States Basic Personal Info: Mild Expresses Complex Ideas: Moderate Objective Cognitive Domain Attention: Mild Memory: Moderate Problem Solving: Moderate Executive Functions: Moderate Composite Severity Rating: Moderate Objective Formal/Standardized Tests Subtests of the [facility] Mental Status (SLUMS), informal speech/co gnitive tasks Results Mild to moderate deficits noted Oral Motor/Speech Production Within Normal Limits Impression Patient is a pleasant 80 y/o female who was admitted to the hospital via ED due to sepsis. Patient was initially screened due to referral for cognitive deficits. At that time the patient was lucid and did not appear to require ST services. Patient was referred for follow up this date due to continued cognitive deficits observed by Dr. Esquivel as well as nursing. Patient was given subtests of the SLUMS and informal speech/cognitive tasks. Patient's evaluation outcome indicate a mild to moderate range of deficit for daily function tasks and memory. Patient's sister was present for the evaluation and stated she could tell the patient "wasn't quite right". Patient would benefit from ST services during inpatient status. Patient is considered at a GDS stage 3 at this time. Speech Short Term Goals Short Term Goals Short Term Goals 1) Patient will complete memory tasks related to her daily needs at 80% or greater with minimal cues. 2) Patient will complete safety awareness tasks related to her daily needs at 80% or greater with minimal cues. 3) Patient will complete problem solving tasks related to her daily needs at 80% or greater with minimal cues. Speech Care Worker Goals Shelter Goals Patient will improve cognitive-communication abilities in order to complete daily tasks with decreased assist. Speech-Plan Patient/Family Goals Patient/Family Goals: Patient plans on returning to her home where she lives alone. She does have confusion which may require alternative discharge plans for her safety. Treatment Plan Speech Therapy Treatment Plan: Continue Plan of Care Treatment Duration: Nov 01, 2020 Frequency: 3 times per week Estimated Hrs Per Day: .25 hour per day Rehab Potential: Fair Barriers to Learning: Patients decreased level of confusion, decreased independence Pt/Family Agrees to Plan: Yes Safety Risks/Education Teaching Recipient: Patient, Family Teaching Methods: Discussion Response to Teaching: Verbalize Understanding, Reinforcement Needed Education Topics Provided: Safety within her room, utilization of call light as needed, communication of wants/needs Time Speech Therapy Time In: 12:30 Speech Therapy Time Out: 12:45 Total Billed Time: 15 Billed Treatment Time 1, YOHANNES LEMOS [address] ST Oct 25, 2020 13:58
[2020-10-25] MEDS ORDERED: HYDROcodone/APAP 5 MG/325 MG (LORTAB) TAB PO PRN (14:00)
[2020-10-25] MEDS: metroNIDAZOLE 500MG/100ML IVPB 100 ML IV SCH ×2 (14:11→20:38)
[2020-10-25] MEDS: MIDAZOLAM 2 MG/2 ML (VERSED) VIAL IVP ONE ×2 (14:17→15:27)
[2020-10-25] MEDS ORDERED: fentaNYL INJ 100 MCG/2 ML AMP IVP PRN (15:30)
--- NOTE | 2020-10-25 15:56 | Progress Note - Surgery ---
Subjective Date Seen by a Provider: Oct 25, 2020 Time Seen by a Provider: 15:53 Subjective/Events-last exam Slightly sore after procedure. Drain placed into liver abscess. No new complaints. Denies n/v fever sweats chills shortness of breath or chest pain at this time. Sister at bedside. Objective Exam Vital Signs Date Time Temp Pulse Resp B/P (MAP) Pulse Ox O2 Delivery O2 Flow Rate FiO2 10/25/20 15:33 37.4 99 22 165/77 (106) 93 Room Air 10/25/20 14:42 37.3 92 24 171/73 (105) 93 Room Air 10/25/20 14:25 37.3 98 22 180/76 (110) 93 Room Air 10/25/20 14:12 37.2 94 22 151/69 (96) 94 Room Air 10/25/20 13:55 37.2 93 22 186/79 (114) 93 Room Air 10/25/20 13:42 94 22 159/74 (102) 93 Room Air 10/25/20 13:15 93 24 158/85 (109) 98 Nasal Cannula 2.00 10/25/20 13:10 91 26 162/99 (120) 98 Nasal Cannula 2.00 10/25/20 13:05 90 26 165/81 (109) 98 Nasal Cannula 2.00 10/25/20 13:00 96 24 170/84 (112) 98 Nasal Cannula 2.00 10/25/20 12:55 99 24 160/80 (106) 99 Nasal Cannula 2.00 10/25/20 12:50 91 24 167/87 (113) 99 Nasal Cannula 2.00 10/25/20 12:45 99 24 163/80 (107) 99 Nasal Cannula 2.00 10/25/20 11:44 37.4 98 22 157/76 (103) 93 Room Air 10/25/20 08:00 Room Air 10/25/20 07:53 37.7 101 22 168/75 (106) 94 Room Air 10/25/20 04:35 36.2 102 18 147/70 (95) 93 Room Air 10/25/20 02:14 36.2 82 96 10/24/20 23:30 36.2 82 18 139/65 (89) 96 Room Air 10/24/20 20:18 38.2 10/24/20 19:26 Room Air 10/24/20 19:24 38.2 108 18 160/75 (103) 100 Room Air 10/24/20 18:03 92 Room Air 10/24/20 16:12 37.3 107 18 144/68 (93) 91 Room Air I & O 10/25/20 07:00 Intake Total 870 ml Output Total 300 ml Balance 570 ml Capillary Refill : Less Than 3 Seconds General Appearance: No Apparent Distress, WD/WN HEENT: PERRL/EOMI, Moist Mucous Membranes; No Scleral Icterus (L), No Scleral Icterus (R) Neck: Normal Inspection, Supple Respiratory: Chest Non Tender, No Accessory Muscle Use, No Respiratory Distress Cardiovascular: Regular Rate, Rhythm, No Murmur Gastrointestinal: tenderness (Minimal right upper quadrant, drain epigastric region) Extremity: Normal Capillary Refill, No Calf Tenderness, No Pedal Edema Neurologic/Psychiatric: Alert, Oriented x3 Skin: Normal Color, Warm/Dry Results Lab Laboratory Tests 10/25/20 05:30: White Blood Count 12.8H, Red Blood Count 3.52L, Hemoglobin 10.2L, Hematocrit 30L , Mean Corpuscular Volume 86, Mean Corpuscular Hemoglobin 29, Mean Corpuscular Hemoglobin Concent 34, Red Cell Distribution Width 13.9, Platelet Count 145, Mean Platelet Volume 11.9, Immature Granulocyte % (Auto) 4, Neutrophils (%) (Auto) 75, Lymphocytes (%) (Auto) 9L, Monocytes (%) (Auto) 11, Eosinophils (%) (Auto) 0, Basophils (%) (Auto) 0, Neutrophils # (Auto) 9.6H, Lymphocytes # (Auto) 1.2, Monocytes # (Auto) 1.4H, Eosinophils # (Auto) 0.1, Basophils # (Auto) 0.0, Immature Granulocyte # (Auto) 0.5H, Neutrophils % (Manual) 77, Lymphocytes % (Manual) 8, Monocytes % (Manual) 9, Band Neutrophils 6, Toxic Granulation 1+, Prothrombin Time 14.2, INR Comment 1.1, Activated Partial Thromboplast Time 34 Microbiology 10/22/20 Blood Culture - Preliminary, Resulted No growth 10/22/20 Urine Culture - Final, Complete Mixed Bacterial Alana Strep, Beta Hemolytic Group B Assessment/Plan Assessment/Plan Assessment/Plan Patient admitted with sepsis unknown source likely urinary tract infection. Patient is continue to improve. She was found to have liver lesion either neoplasm versus abscess. S/p drain placement by IR. Continue abx. Await cultures/sensitivities. MARTA AGRAWAL DO Oct 25, 2020 15:56
[2020-10-25] MEDS: AZITHROMYCIN 500 MG/NS 250 ML IVPB IV SCH ×2 (18:12)
[2020-10-25] MEDS: cefTRIAXone 1,000 MG/SWFI 10 ML IV PUSH IV SCH ×2 (18:12)
[2020-10-25 19:15] LABS: BASOPHILS # (AUTO) 0.1 10^3/uL (0.0-0.1); BASOPHILS % (AUTO) 1 % (0-10); EOSINOPHILS % (AUTO) 0 % (0-10); HEMATOCRIT 37 % (35-52); HEMOGLOBIN 11.8 g/dL (11.5-16.0); LYMPHOCYTES # (AUTO) 0.9 10^3/uL (1.0-4.0); LYMPHOCYTES % (AUTO) 5 % (12-44); MEAN CORPUSCULAR HEMOGLOBIN 29 pg (25-34); MEAN CORPUSCULAR HGB CONC 32 g/dL (32-36); MEAN CORPUSCULAR VOLUME 91 fL (80-99); MEAN PLATELET VOLUME 11.6 fL (9.0-12.2); MONOCYTES # (AUTO) 0.8 10^3/uL (0.0-1.0); MONOCYTES % (AUTO) 5 % (0-12); NEUTROPHILS # (AUTO) 14.5 10^3/uL (1.8-7.8); NEUTROPHILS % (AUTO) 87 % (42-75); PLATELET COUNT 163 10^3/uL (130-400); WHITE BLOOD COUNT 16.6 10^3/uL (4.3-11.0)
[2020-10-25 19:27] LABS: NEUTROPHILS % (MANUAL) 88 %
[2020-10-25 19:28] LABS: BAND NEUTROPHILS 1 %; BASOPHILS % (MANUAL) 0 %; EOSINOPHILS % (MANUAL) 0 %; HYPOCHROMASIA SLIGHT; LYMPHOCYTES % (MANUAL) 5 %; MONOCYTES % (MANUAL) 6 %; POLYCHROMASIA SLIGHT; TOXIC GRANULATION/VACUOLAZATIO 1+
[2020-10-25] MEDS: DONEPEZIL 5 MG (ARICEPT) TAB PO SCH (20:38)
[2020-10-26] VITALS (7 sets, daily range): BP systolic 120–174; BP diastolic 62–78
[2020-10-26 05:55] LABS: HEMATOCRIT 32 % (35-52); HEMOGLOBIN 10.8 g/dL (11.5-16.0); MEAN CORPUSCULAR HEMOGLOBIN 29 pg (25-34); MEAN CORPUSCULAR HGB CONC 33 g/dL (32-36); MEAN CORPUSCULAR VOLUME 86 fL (80-99); MEAN PLATELET VOLUME 11.5 fL (9.0-12.2); PLATELET COUNT 172 10^3/uL (130-400); WHITE BLOOD COUNT 13.1 10^3/uL (4.3-11.0)
[2020-10-26 06:09] LABS: CHLORIDE 110 MMOL/L (98-107); POTASSIUM 3.2 MMOL/L (3.6-5.0); SODIUM 142 MMOL/L (135-145)
[2020-10-26 06:10] LABS: CALCIUM 8.5 MG/DL (8.5-10.1); GLUCOSE 129 MG/DL (70-105)
[2020-10-26 06:12] LABS: CARBON DIOXIDE 18 MMOL/L (21-32)
[2020-10-26 06:14] LABS: CREATININE SERUM 0.71 MG/DL (0.60-1.30); GFR ESTIMATED > 60
[2020-10-26 06:15] LABS: BUN/CREATININE RATIO 15
[2020-10-26] MEDS: metroNIDAZOLE 500MG/100ML IVPB 100 ML IV SCH ×3 (06:25→20:27)
[2020-10-26] MEDS: lisINopril 10 MG (PRINIVIL) TABLET PO SCH (08:36)
[2020-10-26] MEDS: LACTOBACILLUS ACIDOPHILUS (PROBIOTIC) CAPSULE PO SCH ×3 (08:36→17:13)
[2020-10-26] MEDS: cefTRIAXone 2,000 MG in WATER (STERILE) FOR INJECTION 20 ML IV SCH (08:40)
--- NOTE | 2020-10-26 08:58 | Progress Note - Surgery ---
ANDRE KAUFMAN MED STUDENT 10/26/20 0858: Subjective Date Seen by a Provider: Oct 26, 2020 Time Seen by a Provider: 07:45 Subjective/Events-last exam Patient is 80 year old female s/p POD#1 liver lesion drainage. She is pleasantly confused, alert knows the day and that she is in the hospital, but not president, or date. She does not recall having a procedure done yesterday. She describes her mind as "fussy" this morning. She denies problems urinating or with BM. Denies n/v. Nurse was in room with me and did let me know she complained of nausea when standing to use restroom earlier. Her only complaint is "feeling crummy" and pain in her epigastric region. Review of Systems General: No Chills, No Night Sweats HEENT: Head Aches Pulmonary: No Dyspnea, No Cough Cardiovascular: No: Chest Pain, Palpitations Gastrointestinal: Nausea; No: Vomiting Genitourinary: No Dysuria, No Hematuria Musculoskeletal: No: other (athralgia/myalgias) Neurological: Confusion Objective Exam Vital Signs Date Time Temp Pulse Resp B/P (MAP) Pulse Ox O2 Delivery O2 Flow Rate FiO2 10/26/20 08:14 36.8 99 18 174/72 (106) 92 Room Air 10/26/20 07:00 110 10/26/20 04:00 37.0 96 18 124/62 (82) 90 Room Air 10/26/20 01:00 98 10/26/20 00:00 37.1 93 18 148/78 (101) 91 Room Air 10/25/20 22:29 107 10/25/20 20:00 Room Air 10/25/20 19:03 37.7 110 18 133/70 (91) 93 Room Air 10/25/20 18:17 101 158/72 (100) 94 Room Air 10/25/20 17:17 93 127/71 (89) 93 Room Air 10/25/20 16:32 100 123/73 (90) 89 Room Air 10/25/20 15:33 37.4 99 22 165/77 (106) 93 Room Air 10/25/20 14:42 37.3 92 24 171/73 (105) 93 Room Air 10/25/20 14:25 37.3 98 22 180/76 (110) 93 Room Air 10/25/20 14:12 37.2 94 22 151/69 (96) 94 Room Air 10/25/20 13:55 37.2 93 22 186/79 (114) 93 Room Air 10/25/20 13:42 94 22 159/74 (102) 93 Room Air 10/25/20 13:15 93 24 158/85 (109) 98 Nasal Cannula 2.00 10/25/20 13:10 91 26 162/99 (120) 98 Nasal Cannula 2.00 10/25/20 13:05 90 26 165/81 (109) 98 Nasal Cannula 2.00 10/25/20 13:00 96 24 170/84 (112) 98 Nasal Cannula 2.00 10/25/20 12:55 99 24 160/80 (106) 99 Nasal Cannula 2.00 10/25/20 12:50 91 24 167/87 (113) 99 Nasal Cannula 2.00 10/25/20 12:45 99 24 163/80 (107) 99 Nasal Cannula 2.00 10/25/20 11:44 37.4 98 22 157/76 (103) 93 Room Air I & O 10/26/20 07:00 Intake Total 520 ml Output Total 300 ml Balance 220 ml Capillary Refill : Less Than 3 Seconds General Appearance: No Apparent Distress, WD/WN HEENT: PERRL/EOMI, Moist Mucous Membranes; No Scleral Icterus (L), No Scleral Icterus (R) Neck: Supple Respiratory: Chest Non Tender, Lungs Clear, No Accessory Muscle Use, No Respiratory Distress Cardiovascular: Regular Rate, Rhythm, No Murmur Gastrointestinal: tenderness (Minimal right upper quadrant, drain epigastric region), other (drain is in implace, clean, approx 10 mL serosanginous fluid, more so sanginous) Extremity: Normal Capillary Refill, No Calf Tenderness, No Pedal Edema Neurologic/Psychiatric: Alert, Oriented x3 Skin: Normal Color, Warm/Dry Results Lab Laboratory Tests 10/25/20 19:10: White Blood Count 16.6H, Red Blood Count 4.01, Hemoglobin 11.8, Hematocrit 37, Mean Corpuscular Volume 91, Mean Corpuscular Hemoglobin 29, Mean Corpuscular Hemoglobin Concent 32, Red Cell Distribution Width 14.1, Platelet Count 163, Mean Platelet Volume 11.6, Immature Granulocyte % (Auto) 2, Neutrophils (%) (Auto) 87H, Lymphocytes (%) (Auto) 5L, Monocytes (%) (Auto) 5, Eosinophils (%) (Auto) 0, Basophils (%) (Auto) 1, Neutrophils # (Auto) 14.5H, Lymphocytes # (Auto) 0.9L, Monocytes # (Auto) 0.8, Eosinophils # (Auto) 0.0, Basophils # (Auto) 0.1, Immature Granulocyte # (Auto) 0.3H, Neutrophils % (Manual) 88, Lymphocytes % (Manual) 5, Monocytes % (Manual) 6, Eosinophils % (Manual) 0, Basophils % (Manual) 0, Band Neutrophils 1, Toxic Granulation 1+, Polychromasia SLIGHT, Hypochromasia SLIGHT 10/26/20 05:33: White Blood Count 13.1H, Red Blood Count 3.75L, Hemoglobin 10.8L, Hematocrit 32L , Mean Corpuscular Volume 86, Mean Corpuscular Hemoglobin 29, Mean Corpuscular Hemoglobin Concent 33, Red Cell Distribution Width 13.8, Platelet Count 172, Mean Platelet Volume 11.5, Sodium Level 142, Potassium Level 3.2L, Chloride Level 110H, Carbon Dioxide Level 18L, Anion Gap 14, Blood Urea Nitrogen 11, Creatinine 0.71, Estimat Glomerular Filtration Rate > 60, BUN/Creatinine Ratio 15, Glucose Level 129H, Calcium Level 8.5 Microbiology 10/22/20 Blood Culture - Preliminary, Resulted No growth 10/22/20 Urine Culture - Final, Complete Mixed Bacterial Alana Strep, Beta Hemolytic Group B Assessment/Plan Assessment/Plan Assessment/Plan Liver lesion - neoplasm vs. abscess WBC has improved today, drain has output, patient subjectively feels worse today. She appears to be improving continue fluids, ABX, waiting on culture/sensitivities, continue pain control. INDIO MUNGUIA DO 10/26/20 1254: Subjective Time Seen by a Provider: 09:51 Subjective/Events-last exam Pt seen and examined, her main complaint is "I feel more crummy today". She describes not feeling well and weak, not hungry. Review of Systems General: No Chills, No Night Sweats; Fatigue, Malaise HEENT: Head Aches Pulmonary: No Dyspnea, No Cough Cardiovascular: No: Chest Pain, Palpitations Gastrointestinal: Nausea; No: Vomiting Genitourinary: No Dysuria, No Hematuria Objective Exam General Appearance: No Apparent Distress, WD/WN HEENT: PERRL/EOMI, Moist Mucous Membranes Respiratory: Chest Non Tender, Lungs Clear, No Accessory Muscle Use, No Respiratory Distress Cardiovascular: Regular Rate, Rhythm, No Murmur Gastrointestinal: soft, distended (very slight), tenderness (Minimal right upper quadrant, drain epigastric region), other (drain is in implace, clean, approx 10 mL serosanginous fluid, more so sanginous) Assessment/Plan Assessment/Plan Assessment/Plan Liver Lesion - S/P drainage, I was told aspiration fluid did not look purulent and no purulence in drain today UTI - on ABX B/L Pleural effusions ?? contributing to how she feels (also some atelectasis seen on CT) Encourage PO intake, especially protein to help recover. Ambulation and IS use will also help. WBC has come down, continue to monitor labs. Supervisory-Addendum Brief Verification & Attestation Participated in pt care: history, MDM, physical Personally performed: exam, history, MDM, supervision of care Care discussed with: Medical Student Procedures: n/a Verification and Attestation of Medical Student E/M Service A medical student performed and documented this service. I then reviewed and verified all information documented by the medical student and made modifications to such information, when appropriate. I personally performed a physical exam, medical decision making and then discussed any differences between the notes and made revisions as necessary to create one note. Indio Munguia , 10/26/20 , 12:54 ANDRE KAUFMAN MED STUDENT Oct 26, 2020 08:58 INDIO MUNGUIA DO Oct 26, 2020 12:54
--- NOTE | 2020-10-26 09:12 | Physical Therapy Progress Note ---
Therapy Progress Note Pt declined OOB activity this date, stating she is not feeling well. Will reassess Wednesday. 1, ref ([id number]) DELORIS MCERLOY PT Oct 26, 2020 09:12
--- NOTE | 2020-10-26 11:33 | Diagnostic Imaging Report ---
REASON FOR EXAM: Increasing abdominal pain. COMPARISON: 10/24/2020. TECHNIQUE: Frontal supine view of the abdomen FINDINGS: Pigtail catheter drain is seen overlying the right upper quadrant. No evidence of bowel obstruction. No large collections of free intraperitoneal air. Partially calcified fibroids are seen in the pelvis right of midline. No acute osseous abnormalities. IMPRESSION: 1. No evidence of bowel obstruction or large collection of free intraperitoneal air. 2. Pigtail catheter drain is in place overlying the right upper quadrant. Dictated by: Dictated on workstation # [id number]
--- NOTE | 2020-10-26 12:11 | Progress Note - Hospitalist ---
Subjective HPI/CC On Admission Date Seen by Provider: Oct 26, 2020 Time Seen by Provider: 10:05 Pt is a 80yoCF with a PMH of HTN who presented to the ER due to fever and fatigue. She is somewhat confused and cannot recall all of her medical history. Her siser helps to fill in the gaps. She reports she has been quite fatigued for a week and had diarrhea. Her sister visited her yesterday and found her to bee quite fatigued and covered in blankets chilling. She checked her temperature and it was 102 so she brought her in for evaluation. She was found to have a leukocytosis with fever and tachycardia on arrival but no source was identified. She was admitted for sepsis of unkown origin. This morning she reports feeling somewhat better though still nto back to normal. Subjective/Events-last exam She is having some abdominal pain today. She denies having any fevers or chills. She is not having any shortness of breath. She denies any chest pain. Objective Exam Vital Signs Vital Signs Date Time Temp Pulse Resp B/P (MAP) Pulse Ox O2 Delivery O2 Flow Rate FiO2 10/26/20 12:15 37.2 99 18 140/63 (88) 91 Room Air 10/25/20 13:15 2.00 10/22/20 17:57 21 Capillary Refill : Less Than 3 Seconds General Appearance: No Apparent Distress, Thin Respiratory: Lungs Clear, Normal Breath Sounds, No Respiratory Distress Cardiovascular: Regular Rate, Rhythm, No Murmur Gastrointestinal: Normal Bowel Sounds, Soft, Tenderness Extremity: Normal Inspection, Non Tender, Pedal Edema Neurologic/Psychiatric: Alert, Normal Mood/Affect Skin: Normal Color, Warm/Dry Results/Procedures Lab Laboratory Tests 10/25/20 19:10 10/26/20 05:33 Patient resulted labs reviewed. Imaging: Reviewed Imaging Report Assessment/Plan Assessment and Plan Assess & Plan/Chief Complaint Sepsis Likely liver abscess Procal decreasing CT abdomen with possible abscess Drain placed Continue Rocephin and Flagyl HTN Continue home meds Dementia Patient reports forgetfulness Continue Aricept Speech consult for cognitive eval DVT ppx: Lovenox JOSE, resolved Diagnosis/Problems Diagnosis/Problems (1) Sepsis, unspecified organism Status: Acute Qualifiers: Sepsis type: sepsis due to unspecified organism Sepsis acute organ dysfunction status: with acute organ dysfunction Severe sepsis shock status: without septic shock (2) Liver abscess Status: Acute (3) HTN (hypertension) Status: Chronic Qualifiers: Hypertension type: essential hypertension Qualified Codes: I10 - Essential (primary) hypertension (4) JOSE (acute kidney injury) Status: Resolved Resolution Date/Time: 10/26/20 @ 12:48 (5) Dementia Status: Chronic DELL MARTI MD Oct 26, 2020 12:11
[2020-10-26] MEDS: ENOXAPARIN 40 MG/0.4 ML (LOVENOX) SYR SC SCH (18:16)
[2020-10-26] MEDS: DONEPEZIL 5 MG (ARICEPT) TAB PO SCH (20:27)
[2020-10-27 04:28] VITALS: BP 131/74
[2020-10-27 05:26] LABS: BASOPHILS # (AUTO) 0.1 10^3/uL (0.0-0.1); BASOPHILS % (AUTO) 0 % (0-10); EOSINOPHILS % (AUTO) 0 % (0-10); HEMATOCRIT 29 % (35-52); LYMPHOCYTES # (AUTO) 1.6 10^3/uL (1.0-4.0); LYMPHOCYTES % (AUTO) 10 % (12-44); MEAN CORPUSCULAR HEMOGLOBIN 30 pg (25-34); MEAN CORPUSCULAR HGB CONC 35 g/dL (32-36); MEAN CORPUSCULAR VOLUME 86 fL (80-99); MEAN PLATELET VOLUME 11.2 fL (9.0-12.2); MONOCYTES # (AUTO) 0.9 10^3/uL (0.0-1.0); MONOCYTES % (AUTO) 6 % (0-12); NEUTROPHILS # (AUTO) 12.2 10^3/uL (1.8-7.8); NEUTROPHILS % (AUTO) 79 % (42-75); PLATELET COUNT 194 10^3/uL (130-400); WHITE BLOOD COUNT 15.4 10^3/uL (4.3-11.0)
[2020-10-27 05:43] LABS: ALBUMIN 2.5 GM/DL (3.2-4.5)
[2020-10-27 05:44] LABS: CHLORIDE 109 MMOL/L (98-107); SODIUM 141 MMOL/L (135-145)
[2020-10-27 05:45] LABS: CALCIUM 8.4 MG/DL (8.5-10.1)
[2020-10-27 05:46] LABS: GLUCOSE 97 MG/DL (70-105); TOTAL PROTEIN 5.2 GM/DL (6.4-8.2)
[2020-10-27 05:47] LABS: CARBON DIOXIDE 21 MMOL/L (21-32)
[2020-10-27 05:48] LABS: BILIRUBIN,TOTAL 0.8 MG/DL (0.1-1.0)
[2020-10-27 05:49] LABS: ALKALINE PHOSPHATASE 78 U/L (40-136)
[2020-10-27 05:50] LABS: CREATININE SERUM 0.66 MG/DL (0.60-1.30); GFR ESTIMATED > 60
[2020-10-27 05:51] LABS: BUN/CREATININE RATIO 21
[2020-10-27 05:53] LABS: ALANINE AMINOTRANSFERASE 20 U/L (0-55)
[2020-10-27] MEDS: metroNIDAZOLE 500MG/100ML IVPB 100 ML IV SCH ×3 (05:57→20:25)
--- NOTE | 2020-10-27 06:46 | Progress Note - Hospitalist ---
Subjective HPI/CC On Admission Date Seen by Provider: Oct 27, 2020 Time Seen by Provider: 11:00 Pt is a 80yoCF with a PMH of HTN who presented to the ER due to fever and fatigue. She is somewhat confused and cannot recall all of her medical history. Her siser helps to fill in the gaps. She reports she has been quite fatigued for a week and had diarrhea. Her sister visited her yesterday and found her to bee quite fatigued and covered in blankets chilling. She checked her temperature and it was 102 so she brought her in for evaluation. She was found to have a leukocytosis with fever and tachycardia on arrival but no source was identified. She was admitted for sepsis of unkown origin. This morning she reports feeling somewhat better though still nto back to normal. Subjective/Events-last exam Patient much improved We will give vitamin B12 injections since she was due on Wednesday and she was hospitalized Severity of vitamin B12 deficiency will require supplement while in hospital Discontinue telemetry Advancing diet to full liquids Does not have much of an appetite Drain is still in place Took a shower Walking around [facility] and Flagyl maintained Culture is pending Review of Systems General: Fatigue, Malaise Objective Exam Vital Signs Vital Signs Date Time Temp Pulse Resp B/P (MAP) Pulse Ox O2 Delivery O2 Flow Rate FiO2 10/28/20 04:22 36.8 85 18 155/65 (95) 92 Room Air 10/25/20 13:15 2.00 10/22/20 17:57 21 Capillary Refill : Less Than 3 Seconds General Appearance: No Apparent Distress, WD/WN, Chronically ill Respiratory: Lungs Clear Cardiovascular: Regular Rate, Rhythm Neurologic/Psychiatric: Alert, Oriented x3, Depressed Affect Results/Procedures Lab Laboratory Tests 10/28/20 04:03 Patient resulted labs reviewed. Imaging: Reviewed Imaging Report Assessment/Plan Assessment and Plan Assess & Plan/Chief Complaint Assessment: Sepsis Liver abscess status post incision and drainage and drain placed by interventional radiology Severe vitamin B12 deficiency Iron deficiency history Dementia Hypertension Hypokalemia Plan: IV antibiotics Vitamin B12 injection KAREN TERAN DO Oct 27, 2020 06:46
[2020-10-27] MEDS ORDERED: KCL 20 MEQ TAB (K-DUR) PO ONE (07:00)
[2020-10-27 08:00] VITALS: BP 148/65
[2020-10-27] MEDS: KCL 20 MEQ TAB (K-DUR) PO SCH ×2 (08:13→20:25)
[2020-10-27] MEDS: LACTOBACILLUS ACIDOPHILUS (PROBIOTIC) CAPSULE PO SCH ×3 (08:13→17:40)
[2020-10-27] MEDS: lisINopril 10 MG (PRINIVIL) TABLET PO SCH (08:14)
[2020-10-27] MEDS: cefTRIAXone 2,000 MG in WATER (STERILE) FOR INJECTION 20 ML IV SCH (08:14)
--- NOTE | 2020-10-27 08:46 | Progress Note - Surgery ---
ANDRE KAUFMAN MED STUDENT 10/27/20 0846: Subjective Date Seen by a Provider: Oct 27, 2020 Time Seen by a Provider: 07:00 Subjective/Events-last exam Patient is being followed s/p liver drain placement. She is pleasantly confused this morning. She alert but not oriented. SHe states she is still feeling "crummy" like she is "going backwards". She states she has no pain today. She complains of having 2x bouts of diarrhea, she noticed no change in urination. She says she is not eating very much, and all they bring her is "water". Review of Systems General: No Night Sweats; Fatigue HEENT: No Head Aches, No Sinus Congestion Pulmonary: No Dyspnea, No Cough Cardiovascular: No: Chest Pain, Palpitations Gastrointestinal: No: Nausea, Vomiting Genitourinary: No Dysuria, No Hematuria Musculoskeletal: No: other (arthralgias/myalgias) Neurological: Confusion; No: Change in speech Objective Exam Vital Signs Date Time Temp Pulse Resp B/P (MAP) Pulse Ox O2 Delivery O2 Flow Rate FiO2 10/27/20 08:00 37.1 90 18 148/65 (92) 91 Room Air 10/27/20 07:00 95 10/27/20 04:28 36.4 88 18 131/74 (93) 90 Room Air 10/27/20 00:45 91 10/26/20 23:38 36.5 74 16 120/68 (85) 91 Room Air 10/26/20 20:42 Room Air 10/26/20 19:57 36.9 96 16 127/73 (91) 93 Room Air 10/26/20 19:00 90 10/26/20 18:42 Room Air 10/26/20 16:22 37.2 106 18 131/73 (92) 94 Room Air 10/26/20 13:00 103 10/26/20 12:15 37.2 99 18 140/63 (88) 91 Room Air I & O 10/27/20 07:00 Intake Total 2440 ml Output Total 73 ml Balance 2367 ml Capillary Refill : Less Than 3 Seconds General Appearance: No Apparent Distress HEENT: PERRL/EOMI, Moist Mucous Membranes Neck: Supple Respiratory: Chest Non Tender, Lungs Clear, No Accessory Muscle Use, No Respiratory Distress Cardiovascular: Regular Rate, Rhythm, No Murmur Peripheral Pulses: 2+ Radial Pulses (R), 2+ Radial Pulses (L) Gastrointestinal: soft, tenderness (Minimal right upper quadrant, drain epigastric region), other (drain is in implace, clean, approx 5 mL serosanginous fluid, more so sanginous, not purulent) Extremity: Normal Inspection, Non Tender, Pedal Edema Neurologic/Psychiatric: Alert, Normal Mood/Affect Skin: Normal Color, Warm/Dry Results Lab Laboratory Tests 10/27/20 05:00: White Blood Count 15.4H, Red Blood Count 3.37L, Hemoglobin 10.0L, Hematocrit 29L , Mean Corpuscular Volume 86, Mean Corpuscular Hemoglobin 30, Mean Corpuscular Hemoglobin Concent 35, Red Cell Distribution Width 13.8, Platelet Count 194, M naga Platelet Volume 11.2, Immature Granulocyte % (Auto) 5, Neutrophils (%) (Auto) 79H, Lymphocytes (%) (Auto) 10L, Monocytes (%) (Auto) 6, Eosinophils (%) (Auto) 0, Basophils (%) (Auto) 0, Neutrophils # (Auto) 12.2H, Lymphocytes # (Auto) 1.6, Monocytes # (Auto) 0.9, Eosinophils # (Auto) 0.0, Basophils # (Auto) 0.1, Immature Granulocyte # (Auto) 0.7H, Sodium Level 141, Potassium Level 3.0L, Chloride Level 109H, Carbon Dioxide Level 21, Anion Gap 11, Blood Urea Nitrogen 14, Creatinine 0.66, Estimat Glomerular Filtration Rate > 60, BUN/Creatinine Ratio 21, Glucose Level 97, Calcium Level 8.4L, Corrected Calcium 9.6, Total Bilirubin 0.8, Aspartate Amino Transf (AST/SGOT) 18, Alanine Aminotransferase (ALT/SGPT) 20, Alkaline Phosphatase 78, Total Protein 5.2L, Albumin 2.5L Microbiology 10/25/20 Gram Stain - Final, Resulted 10/25/20 Anaerobic Culture, Resulted Pending 10/25/20 Surgical Culture - Preliminary, Resulted No growth 10/22/20 Blood Culture - Preliminary, Resulted No growth 10/22/20 Urine Culture - Final, Complete Mixed Bacterial Alana Strep, Beta Hemolytic Group B Assessment/Plan Assessment/Plan Assessment/Plan Liver Lesion - S/P drainage, drain in place and no signs of perforation on abdominal x-ray, no purulent fluid noted from drain, waiting on path UTI - on ABX B/L Pleural effusions Patient is stating she is not eating much, Diet can be advanced as tolerated, encourage PO intake, especially protein to help recover. Ambulation and IS use will also help. WBC has risen today to 15.4, continue to monitor labs. JEAN CARLOS MUNGUIA DO 10/27/20 1147: Subjective Time Seen by a Provider: 10:43 Subjective/Events-last exam Pt seen and examined, sitting in chair sleepy but easily arousable. Nurse states she has been up walking around and has no pain today. Review of Systems General: No Night Sweats; Fatigue HEENT: No Head Aches Pulmonary: No Dyspnea, No Cough Cardiovascular: No: Chest Pain, Palpitations Gastrointestinal: No: Nausea, Vomiting, Abdominal Pain Objective Exam General Appearance: No Apparent Distress HEENT: PERRL/EOMI, Moist Mucous Membranes Respiratory: Chest Non Tender, Lungs Clear, Normal Breath Sounds, No Accessory Muscle Use, No Respiratory Distress Cardiovascular: Regular Rate, Rhythm, No Murmur Gastrointestinal: soft, tenderness (Minimal right upper quadrant, drain epigastric region), other (drain is in implace, clean, approx 5 mL serosanginous fluid, more so serous, not purulent) Assessment/Plan Assessment/Plan Assessment/Plan Liver Lesion - S/P drainage, drain in place and no signs of perforation on abdominal x-ray, no purulent fluid noted from drain, waiting on path UTI - on ABX B/L Pleural effusions Patient is stating she is not eating much, Increase diet to regular and can eat food from home; encourage PO intake, especially protein to help recover. Ambulation and IS use will also help. WBC has risen today to 15.4, continue to monitor labs. Supervisory-Addendum Brief Verification & Attestation Participated in pt care: history, MDM, physical Personally performed: exam, history, MDM, supervision of care Care discussed with: Medical Student Procedures: n/a Verification and Attestation of Medical Student E/M Service A medical student performed and documented this service. I then reviewed and verified all information documented by the medical student and made modifications to such information, when appropriate. I personally performed a physical exam, medical decision making and then discussed any differences between the notes and made revisions as necessary to create one note. Jean Carlos Munguia , 10/27/20 , 11:47 ANDRE KAUFMAN MED STUDENT Oct 27, 2020 08:46 JEAN CARLOS MUNGUIA DO Oct 27, 2020 11:47
[2020-10-27 11:52] VITALS: BP 149/64
[2020-10-27] MEDS ORDERED: CYANOCOBALAMIN INJ 1000 MCG/ML IM ONE (14:00)
[2020-10-27 15:52] VITALS: BP 150/77
[2020-10-27] MEDS: ENOXAPARIN 40 MG/0.4 ML (LOVENOX) SYR SC SCH (17:41)
[2020-10-27 19:12] VITALS: BP 147/83
[2020-10-27] MEDS: DONEPEZIL 5 MG (ARICEPT) TAB PO SCH (20:25)
[2020-10-27 23:54] VITALS: BP 134/76
[2020-10-28 04:22] VITALS: BP 155/65
[2020-10-28 04:37] LABS: BASOPHILS % (AUTO) 0 % (0-10); EOSINOPHILS # (AUTO) 0.1 10^3/uL (0.0-0.3); EOSINOPHILS % (AUTO) 1 % (0-10); HEMATOCRIT 29 % (35-52); HEMOGLOBIN 9.6 g/dL (11.5-16.0); LYMPHOCYTES # (AUTO) 1.8 10^3/uL (1.0-4.0); LYMPHOCYTES % (AUTO) 12 % (12-44); MEAN CORPUSCULAR HEMOGLOBIN 29 pg (25-34); MEAN CORPUSCULAR HGB CONC 34 g/dL (32-36); MEAN CORPUSCULAR VOLUME 86 fL (80-99); MEAN PLATELET VOLUME 10.9 fL (9.0-12.2); MONOCYTES # (AUTO) 0.8 10^3/uL (0.0-1.0); MONOCYTES % (AUTO) 6 % (0-12); NEUTROPHILS # (AUTO) 11.6 10^3/uL (1.8-7.8); NEUTROPHILS % (AUTO) 77 % (42-75); PLATELET COUNT 238 10^3/uL (130-400)
[2020-10-28 04:48] LABS: ALBUMIN 2.4 GM/DL (3.2-4.5)
[2020-10-28 04:49] LABS: CHLORIDE 110 MMOL/L (98-107); POTASSIUM 3.6 MMOL/L (3.6-5.0); SODIUM 142 MMOL/L (135-145)
[2020-10-28 04:50] LABS: CALCIUM 8.2 MG/DL (8.5-10.1)
[2020-10-28 04:51] LABS: GLUCOSE 87 MG/DL (70-105); TOTAL PROTEIN 4.9 GM/DL (6.4-8.2)
[2020-10-28 04:52] LABS: CARBON DIOXIDE 22 MMOL/L (21-32)
[2020-10-28 04:53] LABS: BILIRUBIN,TOTAL 0.7 MG/DL (0.1-1.0)
[2020-10-28 04:54] LABS: ALKALINE PHOSPHATASE 77 U/L (40-136)
[2020-10-28 04:55] LABS: GFR ESTIMATED > 60
[2020-10-28 04:56] LABS: BUN/CREATININE RATIO 18
[2020-10-28 04:58] LABS: ALANINE AMINOTRANSFERASE 17 U/L (0-55)
[2020-10-28 05:40] LABS: BAND NEUTROPHILS 4 %; LYMPHOCYTES % (MANUAL) 11 %; MONOCYTES % (MANUAL) 1 %; NEUTROPHILS % (MANUAL) 83 %
[2020-10-28 05:41] LABS: METAMYELOCYTES % 1 %; POLYCHROMASIA SLIGHT; TOXIC GRANULATION/VACUOLAZATIO 1+
[2020-10-28] MEDS: metroNIDAZOLE 500MG/100ML IVPB 100 ML IV SCH ×3 (05:41→21:36)
--- NOTE | 2020-10-28 05:55 | Progress Note - Hospitalist ---
Subjective HPI/CC On Admission Date Seen by Provider: Oct 28, 2020 Time Seen by Provider: 10:00 Pt is a 80yoCF with a PMH of HTN who presented to the ER due to fever and fatigue. She is somewhat confused and cannot recall all of her medical history. Her siser helps to fill in the gaps. She reports she has been quite fatigued for a week and had diarrhea. Her sister visited her yesterday and found her to bee quite fatigued and covered in blankets chilling. She checked her temperature and it was 102 so she brought her in for evaluation. She was found to have a leukocytosis with fever and tachycardia on arrival but no source was identified. She was admitted for sepsis of unkown origin. This morning she reports feeling somewhat better though still nto back to normal. Subjective/Events-last exam Pt doing a lot better Not much of an appetite PT and OT will be ordered Diarrhea after she eats a regular diet so I did start Questran TID scheduled Cough is an issue so will start Robitussen Drain is in place WBC is 15 and stable Review of Systems General: Fatigue, Malaise Gastrointestinal: Abdominal Pain Objective Exam Vital Signs Vital Signs Date Time Temp Pulse Resp B/P (MAP) Pulse Ox O2 Delivery O2 Flow Rate FiO2 10/29/20 04:33 36.4 86 18 150/67 (94) 94 Room Air 10/28/20 15:51 0.00 Capillary Refill : Less Than 3 Seconds General Appearance: No Apparent Distress, WD/WN, Chronically ill Respiratory: Lungs Clear Cardiovascular: Regular Rate, Rhythm Neurologic/Psychiatric: Alert, Oriented x3, Depressed Affect Results/Procedures Lab Patient resulted labs reviewed. Imaging: Reviewed Imaging Report Assessment/Plan Assessment and Plan Assess & Plan/Chief Complaint Assessment: Sepsis Liver abscess status post incision and drainage and drain placed by interv entional radiology Severe vitamin B12 deficiency Iron deficiency history Dementia Hypertension Hypokalemia Plan: IV antibiotics Vitamin B12 injection 10/28/2020: Robitussin Questran 3 times daily Advance diet PT and OT KAREN TERAN DO Oct 28, 2020 05:55
[2020-10-28] MEDS: LACTOBACILLUS ACIDOPHILUS (PROBIOTIC) CAPSULE PO SCH ×3 (07:56→17:25)
[2020-10-28] MEDS: KCL 20 MEQ TAB (K-DUR) PO SCH ×2 (07:57→19:58)
[2020-10-28] MEDS: lisINopril 10 MG (PRINIVIL) TABLET PO SCH (07:57)
[2020-10-28] MEDS: cefTRIAXone 2,000 MG in WATER (STERILE) FOR INJECTION 20 ML IV SCH (07:57)
[2020-10-28 08:00] VITALS: BP 171/74
[2020-10-28] MEDS: ACETAMINOPHEN 325 MG TABLET PO PRN (08:08)
[2020-10-28] MEDS ORDERED: guaiFENesin/DM (ROBITUSSIN DM) 10 ML UDC PO PRN (10:45)
[2020-10-28 11:50] VITALS: BP 148/63
--- NOTE | 2020-10-28 11:50 | Progress Note ---
BRADLEY SERRANO MED STUDENT 10/28/20 1150: Progress Note CC: Doing well, no N/V, but notes some diarrhea. Still having occasional cough. PE: general: alert, no distress respiratory: CTAB, no respiratory distress CV: RRR, no murmur abdomen: soft, nontender, pigtail catheter in place, draining serosanguinous fluid extremity: nontender, no edema neuro/psych: normal affect, baseline dementia Assessment/Plan: sepsis Rocephin and Flagyl cough Robitussin diarrhea Questran weakness PT/OT IRF consult Liver abscess s/p I&D pigtail catheter in place Dr. Munguia following UTI B12 deficiency B12 injections dementia HTN hypokalemia MARY CARMEN TERAN DO 10/28/202118: Supervisory-Addendum Brief Verification & Attestation Participated in pt care: history, MDM, physical Personally performed: exam, history, MDM, supervision of care Care discussed with: Medical Student Procedures: n/a Results interpretation: Verified all documentation Verification and Attestation of Medical Student E/M Service A medical student performed and documented this service in my presence. I reviewed and verified all information documented by the medical student and made modifications to such information, when appropriate. I personally performed the physical exam and medical decision making. Mary Carmen Teran, Oct 28, 2020,21:19 BRADLEY SERRANO MED STUDENT Oct 28, 2020 11:50 MARY CARMEN TERAN DO Oct 28, 2020 21:19
[2020-10-28] MEDS: CHOLESTYRAMINE 4 GM (QUESTRAN LITE, PREVALITE) PKT PO SCH ×2 (13:41→21:36)
--- NOTE | 2020-10-28 14:05 | Occupational Therapy Eval ---
OT Evaluation-General/PLF Medical Diagnosis Admission Date Oct 22, 2020 at 16:16 Medical Diagnosis: sepsis Onset Date: Oct 22, 2020 Therapy Diagnosis Therapy Diagnosis: weakness/decreased ADL status Height/Weight Height (Feet): 5 Height (Inches): 0.00 Weight (Pounds): 142 Weight (Ounces): 0.0 Precautions Precautions/Isolations: Fall Prevention, Standard Precautions Referral Physician: Inés Referral Reason: Evaluation/Treatment Medical History Pertinent Medical History: GERD, HTN Current History ED due to fever and fatigue, s/p liver abscess drain 10/25 Social History Home: Single Level Current Living Status: Alone Entry Into Home: Stairs Without Railing Steps Into Home: 2 ADL-Prior Level of Function SCALE: Activities may be completed with or without assistive devices. 1-Imkppjgpte-dlgeurp completes the activity by him/herself with no assistance from a helper. 5-Set-up or Clean-up Assistance-helper sets up or cleans up; patient completes activity. [place] assists only prior to or following the activity. 4-Supervision or Touching Assistance-helper provides verbal cues and/or touching/steadying and/or contact guard assistance as patient completes activity. Assistance may be provided throughout the activity or intermittently. 3-Partial/Moderate Assistance-helper does LESS THAN HALF the effort. [place] lifts, holds or supports trunk or limbs, but provides less than half the effort. 2-Substantial/Maximal Assistance-helper does MORE THAN HALF the effort. [place] lifts or holds trunk or limbs and provides more than half the effort. 4-Frxifwljq-akevmx does ALL the effort. Patient does none of the effort to complete the activity. Or, the assistance of 2 or more helpers is required for the patient to complete the activity. If activity was not attempted, code reason: 7-Patient Refused. 9-Not Applicable-not attempted and the patient did not perform the activity before the current illness, exacerbation or injury. 10-Not Attempted due to Environmental Limitations-(lack of equipment, weather restraints, etc.). 88-Not Attempted due to Medical Conditions or Safety Concerns. ADL PLOF Comments Pt reports IND with all ADLs and functional mobility at PLOF, no AE/AE. Self Care: Independent Functional Cognition: Independent DME/Equipment: Shower OT Current Status Subjective Pt seated in recliner eating lunch. Agreeable to OT evaluation and tx. Mental Status/Objective Patient Orientation: Person, Place, Time, Situation Current Glasses/Contacts: Yes Hand Dominance: Right Upper Extremity ROM WFL Upper Extremity Coordination WFL Upper Extremity Sensation WFL Upper Extremity Strength grossly 4/5 ADL-Treatment Eating (QC): 6 (Pt IND with lunch, able to open containers and cut food.) Oral Hygiene (QC): 5 (based on clincial judgement.) Shower/Bathe Self (QC): 5 (Per pt report, pt took shower within the last couple days, able to wash/dry all parts. ) Upper Body Dressing (QC): 5 (per pt report.) Toileting Hygiene (QC): 4 (SBA with task per pt report.) Other Treatments Pt seated upright in recliner, agreeable to OT evaluation and tx. OT educated pt on purpose and benefit of OT, she verbalized understanding. Pt then provided information about PLOF and home setup and participated in UE screen. Pt states she someone with her when she goes to the bathroom throughout the day at the hospital for safety (SBA). Pt able to complete clothing management and hygiene herself. Pt declines ADLs at this time, but provides information about assistance required when she showered within the last couple days. Pt declined tx at this time, stating she would like to continue eating her lunch. OT educated pt on OT POC while she is admitted, and educated pt on energy conservation techniques and benefits of shower chair, she verbalized understanding. Post tx, pt seated in recliner, call light in reach and all needs met. Education OT Patient Education: Correct positioning, Energy conservation, Exercise program, Modified ADL techniques, Progress toward Goal/Update tx plan, Purpose of tx/functional activities, Rehab process Teaching Recipient: Patient Teaching Methods: Discussion Response to Teaching: Verbalize Understanding OT Commercial Announcer Goals Mcfp Goals Time Frame: Nov 06, 2020 Eating (QC): 6 Oral Hygiene (QC): 6 Toileting Hygiene (QC): 6 Shower/Bathe Self (QC): 6 Upper Body Dressing (QC): 6 Lower Body Dressing (QC): 6 On/Off Footwear (QC): 6 Additional Goals: 1-Demonstrate ADL Tasks, 2-Verbalize Understanding, 3- ImproveStrength/Joselin 1=Demonstrate adherence to instructed precautions during ADL tasks. 2=Patient will verbalize/demonstrate understanding of assistive devices/modif ications for ADL. 3=Patient will improve strength/tolerance for activity to enable patient to perform ADL's. OT Education/Plan Problem List/Assessment Assessment: Decreased Activ Tolerance, Decreased UE Strength, Impaired Funct Balance, Impaired I ADL's, Impaired Self-Care Skills Discharge Recommendations Plan/Recommendations: Continue POC Treatment Plan/Plan of Care Patient would benefit from OT for education, treatment and training to promote independence in ADL's, mobility, safety and/or upper extremity function for ADL's. Plan of Care: ADL Retraining, Functional Mobility, UE Funct Exercise/Act Treatment Duration: Nov 06, 2020 Frequency: 5 times per week Estimated Hrs Per Day: .25 hour per day Rehab Potential: Fair Time/GCodes Start Time: 13:18 Stop Time: 13:27 Total Time Billed (hr/min): 9 Billed Treatment Time 1, SUZY LEAL OT Oct 28, 2020 14:05
--- NOTE | 2020-10-28 14:50 | Physical Therapy Daily Note ---
PT Daily Note-Current Subjective Patient in bed pre tx, agrees to PT, has no complaints of pain. Appearance Patient in bed post tx with nurse call, phone, tray, all needs met. Mental Status Patient Orientation: Person, Place, Situation Attachments: Drains, IV Transfers SCALE: Activities may be completed with or without assistive devices. 9-Huzpamfxuq-wstenem completes the activity by him/herself with no assistance from a helper. 5-Set-up or Clean-up Assistance-helper sets up or cleans up; patient completes activity. [place] assists only prior to or following the activity. 4-Supervision or Touching Assistance-helper provides verbal cues and/or touching/steadying and/or contact guard assistance as patient completes activity. Assistance may be provided throughout the activity or intermittently. 3-Partial/Moderate Assistance-helper does LESS THAN HALF the effort. [place] lifts, holds or supports trunk or limbs, but provides less than half the effort. 2-Substantial/Maximal Assistance-helper does MORE THAN HALF the effort. [place] lifts or holds trunk or limbs and provides more than half the effort. 9-Ngkdazqis-umlqoc does ALL the effort. Patient does none of the effort to complete the activity. Or, the assistance of 2 or more helpers is required for the patient to complete the activity. If activity was not attempted, code reason: 7-Patient Refused. 9-Not Applicable-not attempted and the patient did not perform the activity before the current illness, exacerbation or injury. 10-Not Attempted due to Environmental Limitations-(lack of equipment, weather restraints, etc.). 88-Not Attempted due to Medical Conditions or Safety Concerns. Roll Left & Right (QC): 6 Sit to Lying (QC): 5 Lying to Sitting/Side of Bed(Q: 5 Sit to Stand (QC): 4 Chair/Rqt-xr-Rtspe Xfer(QC): 4 Gait Training Distance: 200' Walk 10 feet (QC): 4 Walk 50 ft with 2 Turns(QC): 4 Walk 150 ft (QC): 4 Gait Persons Needed: 1 Gait Assistive Device: FWW CGA, slow but steady ambulation Exercises Supine Ex: Ankle pumps, Quad Set, Glut sets Supine Reps: 20 Treatments bed mobility and transfers, ambulation, LE exercise Assessment Current Status: Fair Progress has a little difficulty with supine <-> sit but can do it without assist PT Short Term Goals Short Term Goals Time Frame: Oct 25, 2020 Roll Left & Right: 6 Sit to lyin Lying to sitting on side of be: 6 Sit to stand: 6 Chair/lxm-zf-djhlo transfer: 6 Toilet transfer: 6 Walk 10 feet: 6 Walk 50 feet with two turns: 6 Walk 150 feet: 6 PT Plan Problem List Problem List: Activity Tolerance, Functional Strength, Safety, Balance, Gait, Transfer, Bed Mobility, ROM Treatment/Plan Treatment Plan: Continue Plan of Care Treatment Plan: Education, Functional Activity [place], Functional Strength, Gait, Safety, Therapeutic Exercise, Transfers Treatment Duration: Oct 25, 2020 Frequency: 2 times per week Estimated Hrs Per Day: .25 hour per day Patient and/or Family Agrees t: Yes Safety Risks/Education Patient Education: Gait Training, Transfer Techniques, Correct Positioning, Safety Issues Teaching Recipient: Patient Teaching Methods: Demonstration, Discussion Response to Teaching: Reinforcement Needed Time/GCodes Time In: 1426 Time Out: 1440 Total Billed Treatment Time: 14 Total Billed Treatment 1 visit GT 14' ASIA BHAKTA PT Oct 28, 2020 14:50
[2020-10-28 16:00] VITALS: BP 152/67
--- NOTE | 2020-10-28 17:17 | Progress Note - Surgery ---
Subjective Date Seen by a Provider: Oct 28, 2020 Time Seen by a Provider: 13:30 Subjective/Events-last exam Patient no appetite. Feeling okay she states. WBC 15. Drain in place and serosang drainage. Denies n/v fever sweats chills shortness of breath or chest pain at this time. Objective Exam Vital Signs Date Time Temp Pulse Resp B/P (MAP) Pulse Ox O2 Delivery O2 Flow Rate FiO2 10/28/20 16:00 36.1 83 20 152/67 (95) 94 Room Air 10/28/20 15:51 Room Air 0.00 10/28/20 11:50 36.3 67 20 148/63 (91) 96 Room Air 10/28/20 09:22 37.0 10/28/20 08:08 37.8 10/28/20 08:00 37.8 83 22 171/74 (106) 92 Room Air 10/28/20 08:00 Room Air 10/28/20 04:22 36.8 85 18 155/65 (95) 92 Room Air 10/27/20 23:54 36.9 82 18 134/76 (95) 92 Room Air 10/27/20 20:46 Room Air 10/27/20 19:12 37.7 96 18 147/83 (104) 92 Room Air I & O 10/28/20 07:00 Intake Total 1300 ml Output Total 160 ml Balance 1140 ml Capillary Refill : Less Than 3 Seconds General Appearance: No Apparent Distress, WD/WN, Chronically ill HEENT: PERRL/EOMI, Moist Mucous Membranes Neck: Non Tender, Supple Respiratory: Chest Non Tender, No Accessory Muscle Use, No Respiratory Distress Cardiovascular: Regular Rate, Rhythm, No JVD Peripheral Pulses: 2+ Radial Pulses (R), 2+ Radial Pulses (L) Gastrointestinal: soft, tenderness (Minimal right upper quadrant, drain epigastric region) Extremity: Normal Inspection, Non Tender, Pedal Edema Neurologic/Psychiatric: Alert Skin: Normal Color, Warm/Dry Lymphatic: No Adenopathy Results Lab Laboratory Tests 10/28/20 04:03: White Blood Count 15.0H, Red Blood Count 3.31L, Hemoglobin 9.6L, Hematocrit 29L, Mean Corpuscular Volume 86, Mean Corpuscular Hemoglobin 29, Mean Corpuscular Hemoglobin Concent 34, Red Cell Distribution Width 14.0, Platelet Count 238, Mean Platelet Volume 10.9, Immature Granulocyte % (Auto) 5, Neutrophils (%) (Auto) 77H, Lymphocytes (%) (Auto) 12, Monocytes (%) (Auto) 6, Eosinophils (%) (Auto) 1, Basophils (%) (Auto) 0, Neutrophils # (Auto) 11.6H, Lymphocytes # (Auto) 1.8, Monocytes # (Auto) 0.8, Eosinophils # (Auto) 0.1, Basophils # (Auto) 0.0, Immature Granulocyte # (Auto) 0.7H, Neutrophils % (Manual) 83, Lymphocytes % (Manual) 11, Monocytes % (Manual) 1, Metamyelocytes % 1, Band Neutrophils 4, Toxic Granulation 1+, Polychromasia SLIGHT, Sodium Level 142, Potassium Level 3.6, Chloride Level 110H, Carbon Dioxide Level 22, Anion Gap 10, Blood Urea Nitrogen 11, Creatinine 0.60, Estimat Glomerular Filtration Rate > 60, BUN/Creatinine Ratio 18, Glucose Level 87, Calcium Level 8.2L, Corrected Calcium 9.5, Total Bilirubin 0.7, Aspartate Amino Transf (AST/SGOT) 19, Alanine Aminotransferase (ALT/SGPT) 17, Alkaline Phosphatase 77, Total Protein 4.9L, Albumin 2.4L Microbiology 10/25/20 Gram Stain - Final, Resulted 10/25/20 Anaerobic Culture - Preliminary, Resulted No anaerobes isolated 10/25/20 Surgical Culture - Final, Resulted No growth 10/22/20 Blood Culture - Final, Complete No growth 10/22/20 Urine Culture - Final, Complete Mixed Bacterial Alana Strep, Beta Hemolytic Group B Assessment/Plan Assessment/Plan Assessment/Plan Liver Lesion - S/P drainage, drain in place and no signs of perforation on abdominal x-ray, no purulent fluid noted from drain UTI - on ABX B/L Pleural effusions Patient is stating she is not eating much, Increase diet to regular and can eat food from home; encourage PO intake, especially protein to help recover. Ambulation and IS use will also help. WBC has risen today to 15, continue to monitor labs. Considering repeat ct scan abdomen to reevaluate liver. MARTA AGRAWAL DO Oct 28, 2020 17:17
[2020-10-28] MEDS: ENOXAPARIN 40 MG/0.4 ML (LOVENOX) SYR SC SCH (17:25)
[2020-10-28] MEDS: DONEPEZIL 5 MG (ARICEPT) TAB PO SCH (19:58)
[2020-10-28 20:00] VITALS: BP 154/65
[2020-10-29] VITALS (7 sets, daily range): BP systolic 141–178; BP diastolic 62–84
--- NOTE | 2020-10-29 05:19 | Progress Note - Hospitalist ---
Subjective HPI/CC On Admission Date Seen by Provider: Oct 29, 2020 Time Seen by Provider: 10:00 Pt is a 80yoCF with a PMH of HTN who presented to the ER due to fever and fatigue. She is somewhat confused and cannot recall all of her medical history. Her siser helps to fill in the gaps. She reports she has been quite fatigued for a week and had diarrhea. Her sister visited her yesterday and found her to bee quite fatigued and covered in blankets chilling. She checked her temperature and it was 102 so she brought her in for evaluation. She was found to have a leukocytosis with fever and tachycardia on arrival but no source was identified. She was admitted for sepsis of unkown origin. This morning she reports feeling somewhat better though still nto back to normal. Subjective/Events-last exam Pt doing pretty well WBC 17,000 Minimal appetite Diarrhea continues even with the Questran TID CT scan will be reviewed by surgeon Cough is improved Review of Systems General: Fatigue, Malaise Pulmonary: Cough Gastrointestinal: Abdominal Pain Objective Exam Vital Signs Vital Signs Date Time Temp Pulse Resp B/P (MAP) Pulse Ox O2 Delivery O2 Flow Rate FiO2 10/29/20 23:45 36.6 87 20 141/84 (103) 93 Room Air 10/29/20 08:00 0.00 Capillary Refill : Less Than 3 Seconds General Appearance: No Apparent Distress, WD/WN, Chronically ill Respiratory: No Accessory Muscle Use, No Respiratory Distress, Wheezing Cardiovascular: Regular Rate, Rhythm Neurologic/Psychiatric: Alert, Oriented x3, No Motor/Sensory Deficits, Depressed Affect Results/Procedures Lab Laboratory Tests 10/29/20 05:40 Patient resulted labs reviewed. Imaging: Reviewed Imaging Report Assessment/Plan Assessment and Plan Assess & Plan/Chief Complaint Assessment: Sepsis Liver abscess status post incision and drainage and drain placed by interventional radiology Severe vitamin B12 deficiency Iron deficiency history Dementia Hypertension Hypokalemia Severe diarrhea placed on Questran Cough Plan: IV antibiotics Vitamin B12 injection 10/28/2020: Robitussin Questran 3 times daily Advance diet PT and OT 10/29/2020: Review CT scan Maintain drain Antibiotics maintained KAREN TERAN DO Oct 29, 2020 05:19
[2020-10-29] MEDS: metroNIDAZOLE 500MG/100ML IVPB 100 ML IV SCH ×3 (05:57→21:51)
[2020-10-29 06:29] LABS: BASOPHILS % (AUTO) 0 % (0-10); EOSINOPHILS # (AUTO) 0.1 10^3/uL (0.0-0.3); EOSINOPHILS % (AUTO) 0 % (0-10); HEMATOCRIT 29 % (35-52); HEMOGLOBIN 9.7 g/dL (11.5-16.0); LYMPHOCYTES # (AUTO) 1.7 10^3/uL (1.0-4.0); LYMPHOCYTES % (AUTO) 10 % (12-44); MEAN CORPUSCULAR HEMOGLOBIN 29 pg (25-34); MEAN CORPUSCULAR HGB CONC 34 g/dL (32-36); MEAN CORPUSCULAR VOLUME 87 fL (80-99); MEAN PLATELET VOLUME 11.5 fL (9.0-12.2); MONOCYTES % (AUTO) 6 % (0-12); NEUTROPHILS # (AUTO) 13.8 10^3/uL (1.8-7.8); NEUTROPHILS % (AUTO) 81 % (42-75); PLATELET COUNT 227 10^3/uL (130-400)
[2020-10-29 06:47] LABS: ALANINE AMINOTRANSFERASE 16 U/L (0-55); ALBUMIN 2.3 GM/DL (3.2-4.5); ALKALINE PHOSPHATASE 75 U/L (40-136); BILIRUBIN,TOTAL 0.6 MG/DL (0.1-1.0); BUN/CREATININE RATIO 15; CARBON DIOXIDE 20 MMOL/L (21-32); CHLORIDE 110 MMOL/L (98-107); CREATININE SERUM 0.62 MG/DL (0.60-1.30); GFR ESTIMATED > 60; GLUCOSE 94 MG/DL (70-105); POTASSIUM 3.7 MMOL/L (3.6-5.0); SODIUM 139 MMOL/L (135-145)
[2020-10-29] MEDS: cefTRIAXone 2,000 MG in WATER (STERILE) FOR INJECTION 20 ML IV SCH (08:11)
[2020-10-29] MEDS: LACTOBACILLUS ACIDOPHILUS (PROBIOTIC) CAPSULE PO SCH ×3 (08:11→17:25)
[2020-10-29] MEDS: KCL 20 MEQ TAB (K-DUR) PO SCH ×2 (08:11→19:26)
[2020-10-29] MEDS: lisINopril 10 MG (PRINIVIL) TABLET PO SCH (08:11)
--- NOTE | 2020-10-29 09:26 | Occupational Ther Daily Note ---
OT Current Status-Daily Note Subjective Pt in bed, nursing present for medication management. Pt agrees to tx, denying pain, though c/o nausea during session. Coughing intermittently with continued diarrhea (brief needs changed upon entry). Mental Status/Objective Patient Orientation: Person, Place, Situation Attachments: Drains ADL-Treatment Therapy Code Descriptions/Definitions Functional [place] Measure: 0=Not Assessed/NA 4=Minimal Assistance 1=Total Assistance 5=Supervision or Setup 2=Maximal Assistance 6=Modified [place] 3=Moderate Assistance 7=Complete IndependenceSCALE: Activities may be completed with or without assistive devices. 5-Fpbaotmele-rtbavji completes the activity by him/herself with no assistance from a helper. 5-Set-up or Clean-up Assistance-helper sets up or cleans up; patient completes activity. [place] assists only prior to or following the activity. 4-Supervision or Touching Assistance-helper provides verbal cues and/or touching/steadying and/or contact guard assistance as patient completes activity. Assistance may be provided throughout the activity or intermittently. 3-Partial/Moderate Assistance-helper does LESS THAN HALF the effort. [place] lifts, holds or supports trunk or limbs, but provides less than half the effort. 2-Substantial/Maximal Assistance-helper does MORE THAN HALF the effort. [place] lifts or holds trunk or limbs and provides more than half the effort. 4-Fppglgnaw-nomxpb does ALL the effort. Patient does none of the effort to complete the activity. Or, the assistance of 2 or more helpers is required for the patient to complete the activity. If activity was not attempted, code reason: 7-Patient Refused. 9-Not Applicable-not attempted and the patient did not perform the activity before the current illness, exacerbation or injury. 10-Not Attempted due to Environmental Limitations-(lack of equipment, weather restraints, etc.). 88-Not Attempted due to Medical Conditions or Safety Concerns. Eating (QC): 6 (able to drink water (unscrews cap, good coordination)) Lower Body Dressing (QC): 3 (min A with RLE in stance to thread, dons over hips SBA.) Toileting Hygiene (QC): 5 (s/u wipes, completes in stance from the front with good balance. ) Toilet Transfer (QC): 4 (SUP, use of walker.) Other Treatment Pt completes bed mob with increased time, good ability. Sit to stand with use of walker for ambulation (all SBA). Pt sits on toilet SBA, completes toileting/ LB dressing as outlined. Pt returns to recliner with all needs met. CT comes in, pt is assisted with SBA from recliner to w/c without use of walker. Left with CT end of session. Education OT Patient Education: Correct positioning, Progress toward Goal/Update tx plan, Purpose of tx/functional activities, Safety issues Teaching Recipient: Patient Teaching Methods: Demonstration, Discussion Response to Teaching: Verbalize Understanding, Return Demonstration OT Principal Research Economist Goals Principal Research Economist Goals Time Frame: Nov 06, 2020 Eating (QC): 6 Oral Hygiene (QC): 6 Toileting Hygiene (QC): 6 Shower/Bathe Self (QC): 6 Upper Body Dressing (QC): 6 Lower Body Dressing (QC): 6 On/Off Footwear (QC): 6 Additional Goals: 1-Demonstrate ADL Tasks, 2-Verbalize Understanding, 3- ImproveStrength/[place] 1=Demonstrate adherence to instructed precautions during ADL tasks. 2=Patient will verbalize/demonstrate understanding of assistive devices/modifications for ADL. 3=Patient will improve strength/tolerance for activity to enable patient to perform ADL's. OT Education/Plan Problem List/Assessment Assessment: Decreased Activ Tolerance, Impaired I ADL's, Impaired Self-Care Skills Discharge Recommendations Plan/Recommendations: Continue POC Therapy Discharge Recommendati: Home & Family Treatment Plan/Plan of Care Treatment,Training & Education: Yes Patient would benefit from OT for education, treatment and training to promote independence in ADL's, mobility, safety and/or upper extremity function for ADL's. Plan of Care: ADL Retraining, Functional Mobility, UE Funct Exercise/Act Treatment Duration: Nov 06, 2020 Frequency: 5 times per week Estimated Hrs Per Day: .25 hour per day Rehab Potential: Fair Time/GCodes Start Time: 08:13 Stop Time: 08:33 Total Time Billed (hr/min): 20 Billed Treatment Time 1, ADL (20) JUSTYN ENCISO OTR Oct 29, 2020 09:26
--- NOTE | 2020-10-29 10:02 | Diagnostic Imaging Report ---
PROCEDURE: CT abdomen and pelvis without contrast. TECHNIQUE: Multiple contiguous axial images were obtained through the abdomen and pelvis without the use of intravenous contrast. Auto Exposure Controls were utilized during the CT exam to meet ALARA standards for radiation dose reduction. INDICATION: Drainage catheter placement. Compared with a CT abdomen pelvis 10/24/2020. FINDINGS: Since the comparison, a percutaneous pigtail drainage catheter has been placed in the left hepatic lobe lateral sector. When it is compared with the previous precontrast enhanced imaging, lesion showed mild reduction in size today 8 cm x 4.8 cm, previously 9.1 x 3.9 cm. Drainage catheter appears coiled in good position. Left pleural effusion nearly resolved. The moderate right pleural effusion slightly increased. Neither showed evidence for loculation. No basilar pneumothorax. There is some bibasilar greater right than left dependent atelectasis. Spleen and adrenals unremarkable. There is some increased perihepatic fluid adjacent to the caudal tip of the right hepatic lobe, this could be subcapsular. The gallbladder is contracted. No visualized stone. Kidneys are unobstructed. There is no ileus or bowel obstruction. There is noninflamed sigmoid diverticulosis. Calcified uterine fibroids at the retroflexed fundus, chronic. No acute adnexal lesion. IMPRESSION: 1. The left lobe lesion is mildly smaller than prior. The drainage catheter projects in good position. We note that the lesion was multi septated on the prior exam and this is likely not amenable to complete percutaneous evacuation. 2. Increased perihepatic fluid along the right hepatic lobe inferiorly which may be subcapsular, no bile duct dilatation. 3. Decreased left and slight increased right pleural effusions without loculation. 4. No bowel, biliary or urinary tract obstruction. Additional stable chronic findings detailed above. Dictated by: Dictated on workstation # [id number]
[2020-10-29] MEDS: CHOLESTYRAMINE 4 GM (QUESTRAN LITE, PREVALITE) PKT PO SCH ×3 (10:22→21:57)
--- NOTE | 2020-10-29 10:28 | Physical Therapy Daily Note ---
PT Daily Note-Current Subjective Patient in recliner pre tx, agrees to PT, has no complaints of pain. Appearance Patient in recliner post tx with nurse call, phone, tray, all needs met, family in the room. Mental Status Patient Orientation: Person, Place, Situation Attachments: Drains Transfers SCALE: Activities may be completed with or without assistive devices. 8-Cqqwbrgohx-cnmmmoi completes the activity by him/herself with no assistance from a helper. 5-Set-up or Clean-up Assistance-helper sets up or cleans up; patient completes activity. [place] assists only prior to or following the activity. 4-Supervision or Touching Assistance-helper provides verbal cues and/or touching/steadying and/or contact guard assistance as patient completes activity. Assistance may be provided throughout the activity or intermittently. 3-Partial/Moderate Assistance-helper does LESS THAN HALF the effort. [place] lifts, holds or supports trunk or limbs, but provides less than half the effort. 2-Substantial/Maximal Assistance-helper does MORE THAN HALF the effort. [place] lifts or holds trunk or limbs and provides more than half the effort. 7-Lzoawxcvw-knyczv does ALL the effort. Patient does none of the effort to complete the activity. Or, the assistance of 2 or more helpers is required for the patient to complete the activity. If activity was not attempted, code reason: 7-Patient Refused. 9-Not Applicable-not attempted and the patient did not perform the activity before the current illness, exacerbation or injury. 10-Not Attempted due to Environmental Limitations-(lack of equipment, weather restraints, etc.). 88-Not Attempted due to Medical Conditions or Safety Concerns. Sit to Stand (QC): 4 Chair/Cmw-kh-Efxwl Xfer(QC): 4 SBA Gait Training Distance: 200' Walk 10 feet (QC): 4 Walk 50 ft with 2 Turns(QC): 4 Walk 150 ft (QC): 4 Gait Persons Needed: 1 Gait Assistive Device: FWW SBA, slow but steady ambulation Exercises Seated Therapy Exercises: Ankle pumps, Long arc quads Seated Reps: 20 Treatments transfers, ambulation, LE exercise Assessment Current Status: Fair Progress improving endurance PT Short Term Goals Short Term Goals Time Frame: Oct 25, 2020 Roll Left & Right: 6 Sit to lyin Lying to sitting on side of be: 6 Sit to stand: 6 Chair/srv-jc-hrrdu transfer: 6 Toilet transfer: 6 Walk 10 feet: 6 Walk 50 feet with two turns: 6 Walk 150 feet: 6 PT Plan Problem List Problem List: Activity Tolerance, Functional Strength, Safety, Balance, Gait, Transfer, ROM Treatment/Plan Treatment Plan: Continue Plan of Care Treatment Plan: Education, Functional Activity Joselin, Functional Strength, Gait, Safety, Therapeutic Exercise, Transfers Treatment Duration: Oct 25, 2020 Frequency: 2 times per week Estimated Hrs Per Day: .25 hour per day Patient and/or Family Agrees t: Yes Safety Risks/Education Patient Education: Gait Training, Transfer Techniques, Correct Positioning, Safety Issues Teaching Recipient: Patient Teaching Methods: Demonstration, Discussion Response to Teaching: Reinforcement Needed Time/GCodes Time In: 1012 Time Out: 1024 Total Billed Treatment Time: 12 Total Billed Treatment 1 visit GT 12' ASIA BHAKTA PT Oct 29, 2020 10:28
[2020-10-29] MEDS: ENOXAPARIN 40 MG/0.4 ML (LOVENOX) SYR SC SCH (17:25)
[2020-10-29] MEDS: DONEPEZIL 5 MG (ARICEPT) TAB PO SCH (19:26)
--- NOTE | 2020-10-29 22:17 | Progress Note - Surgery ---
Subjective Date Seen by a Provider: Oct 29, 2020 Time Seen by a Provider: 14:00 Subjective/Events-last exam States doing about the same as yesterday. No significant abdominal pain. Drain serosang in appearance decreasing amount. CT abd/ pelvis today: 1. The left lobe lesion is mildly smaller than prior. The drainage catheter projects in good position. We note that the lesion was multi septated on the prior exam and this is likely not amenable to complete percutaneous evacuation. 2. Increased perihepatic fluid along the right hepatic lobe inferiorly which may be subcapsular, no bile duct dilatation. 3. Decreased left and slight increased right pleural effusions without loculation. 4. No bowel, biliary or urinary tract obstruction. Additional stable chronic findings detailed above. Denies n/v fever sweats chills shortness of breath or chest pain at this time. Objective Exam Vital Signs Date Time Temp Pulse Resp B/P (MAP) Pulse Ox O2 Delivery O2 Flow Rate FiO2 10/29/20 20:00 36.1 92 22 144/62 (89) 92 Room Air 10/29/20 16:00 36.2 86 24 149/75 (99) 94 Room Air 10/29/20 11:53 36.6 84 20 172/81 (111) 94 Room Air 10/29/20 08:00 92 Room Air 0.00 10/29/20 08:00 37.0 83 22 154/69 (97) 92 Room Air 10/29/20 04:33 36.4 86 18 150/67 (94) 94 Room Air 10/29/20 00:24 36.4 99 20 178/72 (107) 95 Room Air I & O 10/29/20 06:59 Intake Total 1480 ml Output Total 40 ml Balance 1440 ml Capillary Refill : Less Than 3 Seconds General Appearance: No Apparent Distress, WD/WN, Chronically ill HEENT: PERRL/EOMI, Moist Mucous Membranes Neck: Non Tender, Supple Respiratory: Lungs Clear Cardiovascular: Regular Rate, Rhythm Peripheral Pulses: 2+ Radial Pulses (R), 2+ Radial Pulses (L) Gastrointestinal: soft, tenderness (Minimal around drain epigastric region) Extremity: Normal Inspection, Non Tender, Pedal Edema Neurologic/Psychiatric: Alert, Oriented x3, Depressed Affect Skin: Normal Color, Warm/Dry Lymphatic: No Adenopathy Results Lab Laboratory Tests 10/29/20 05:40: White Blood Count 17.0H, Red Blood Count 3.32L, Hemoglobin 9.7L, Hematocrit 29L, Mean Corpuscular Volume 87, Mean Corpuscular Hemoglobin 29, Mean Corpuscular Hemoglobin Concent 34, Red Cell Distribution Width 14.1, Platelet Count 227, Mean Platelet Volume 11.5, Immature Granulocyte % (Auto) 3, Neutrophils (%) (Auto) 81H, Lymphocytes (%) (Auto) 10L, Monocytes (%) (Auto) 6, Eosinophils (%) (Auto) 0, Basophils (%) (Auto) 0, Neutrophils # (Auto) 13.8H, Lymphocytes # (Auto) 1.7, Monocytes # (Auto) 1.0, Eosinophils # (Auto) 0.1, Basophils # (Auto) 0.0, Immature Granulocyte # (Auto) 0.5H, Sodium Level 139, Potassium Level 3.7, Chloride Level 110H, Carbon Dioxide Level 20L, Anion Gap 9, Blood Urea Nitrogen 9, Creatinine 0.62, Estimat Glomerular Filtration Rate > 60, BUN/Creatinine Ratio 15, Glucose Level 94, Calcium Level 8.0L, Corrected Calcium 9.4, Total Bilirubin 0.6, Aspartate Amino Transf (AST/SGOT) 21, Alanine Aminotransferase (ALT/SGPT) 16, Alkaline Phosphatase 75, Total Protein 5.0L, Albumin 2.3L Microbiology 10/25/20 Gram Stain - Final, Complete 10/25/20 Anaerobic Culture - Final, Complete No growth 10/25/20 Surgical Culture - Final, Complete No growth 10/22/20 Blood Culture - Final, Complete No growth 10/22/20 Urine Culture - Final, Complete Mixed Bacterial Alana Strep, Beta Hemolytic Group B Assessment/Plan Assessment/Plan Assessment/Plan Liver Lesion - S/P drainage, drain in place and no signs of perforation on abdominal x-ray, no purulent fluid noted from drain UTI - on ABX B/L Pleural effusions Cultures from drain no growth. Continue abx. Ambulation and IS use will also help. WBC has risen today, continue to monitor labs. CT shows drain in fluid collection, septated, but decreasing in size. MARTA AGRAWAL DO Oct 29, 2020 22:17
[2020-10-30 04:30] VITALS: BP 137/65
[2020-10-30 06:05] LABS: BASOPHILS # (AUTO) 0.1 10^3/uL (0.0-0.1); BASOPHILS % (AUTO) 0 % (0-10); EOSINOPHILS # (AUTO) 0.1 10^3/uL (0.0-0.3); EOSINOPHILS % (AUTO) 0 % (0-10); HEMATOCRIT 29 % (35-52); HEMOGLOBIN 9.4 g/dL (11.5-16.0); LYMPHOCYTES # (AUTO) 1.5 10^3/uL (1.0-4.0); LYMPHOCYTES % (AUTO) 8 % (12-44); MEAN CORPUSCULAR HEMOGLOBIN 30 pg (25-34); MEAN CORPUSCULAR HGB CONC 33 g/dL (32-36); MEAN CORPUSCULAR VOLUME 89 fL (80-99); MEAN PLATELET VOLUME 10.7 fL (9.0-12.2); MONOCYTES # (AUTO) 1.1 10^3/uL (0.0-1.0); MONOCYTES % (AUTO) 6 % (0-12); NEUTROPHILS # (AUTO) 14.8 10^3/uL (1.8-7.8); NEUTROPHILS % (AUTO) 82 % (42-75); PLATELET COUNT 281 10^3/uL (130-400); WHITE BLOOD COUNT 17.9 10^3/uL (4.3-11.0)
--- NOTE | 2020-10-30 06:06 | Progress Note - Hospitalist ---
Subjective HPI/CC On Admission Date Seen by Provider: Oct 30, 2020 Time Seen by Provider: 10:00 Pt is a 80yoCF with a PMH of HTN who presented to the ER due to fever and fatigue. She is somewhat confused and cannot recall all of her medical history. Her siser helps to fill in the gaps. She reports she has been quite fatigued for a week and had diarrhea. Her sister visited her yesterday and found her to bee quite fatigued and covered in blankets chilling. She checked her temperature and it was 102 so she brought her in for evaluation. She was found to have a leukocytosis with fever and tachycardia on arrival but no source was identified. She was admitted for sepsis of unkown origin. This morning she reports feeling somewhat better though still nto back to normal. Subjective/Events-last exam Pt doing a little better Eating a little more Pt doing pretty well WBC remains elevated at 17.9, Procalcitonin at 1.75 Hgb 9.[address] pretty well Dr. Strong is monitoring the drain Review of Systems General: Fatigue, Malaise Objective Exam Vital Signs Vital Signs Date Time Temp Pulse Resp B/P (MAP) Pulse Ox O2 Delivery O2 Flow Rate FiO2 10/31/20 03:55 36.5 82 22 134/60 (84) 90 Room Air 10/29/20 08:00 0.00 Capillary Refill : Less Than 3 Seconds General Appearance: No Apparent Distress, WD/WN Respiratory: Lungs Clear, Normal Breath Sounds Cardiovascular: Regular Rate, Rhythm Neurologic/Psychiatric: Alert, Oriented x3, Depressed Affect Results/Procedures Lab Laboratory Tests 10/30/20 05:39 Patient resulted labs reviewed. Imaging: Reviewed Imaging Report Assessment/Plan Assessment and Plan Assess & Plan/Chief Complaint Assessment: Sepsis Liver abscess status post incision and drainage and drain placed by interventional radiology Severe vitamin B12 deficiency Iron deficiency history Dementia Hypertension Hypokalemia Severe diarrhea placed on Questran Cough Plan: IV antibiotics Vitamin B12 injection 10/28/2020: Robitussin Questran 3 times daily Advance diet PT and OT 10/29/2020: Review CT scan Maintain drain Antibiotics maintained 10/30/2020: Slow recovery Monitor closely Improved nutrition intake Continue KAREN Langston DO Oct 30, 2020 06:06
[2020-10-30] MEDS: metroNIDAZOLE 500MG/100ML IVPB 100 ML IV SCH (06:10)
[2020-10-30 06:27] LABS: ALBUMIN 2.3 GM/DL (3.2-4.5); CHLORIDE 108 MMOL/L (98-107); SODIUM 138 MMOL/L (135-145)
[2020-10-30 06:29] LABS: GLUCOSE 86 MG/DL (70-105); TOTAL PROTEIN 4.8 GM/DL (6.4-8.2)
[2020-10-30 06:30] LABS: CARBON DIOXIDE 20 MMOL/L (21-32)
[2020-10-30 06:31] LABS: BILIRUBIN,TOTAL 0.6 MG/DL (0.1-1.0)
[2020-10-30 06:33] LABS: ALKALINE PHOSPHATASE 75 U/L (40-136); CREATININE SERUM 0.58 MG/DL (0.60-1.30); GFR ESTIMATED > 60
[2020-10-30 06:34] LABS: BUN/CREATININE RATIO 12
[2020-10-30 06:36] LABS: ALANINE AMINOTRANSFERASE 15 U/L (0-55)
[2020-10-30 07:41] VITALS: BP 154/68
--- NOTE | 2020-10-30 08:30 | Progress Note - Surgery ---
Subjective Date Seen by a Provider: Oct 30, 2020 Time Seen by a Provider: 08:25 Subjective/Events-last exam Patient laying in bed. No significant abdominal pain. Not much of an appetitie. WBC increasing to 17.9. Drain putting out serosang fluid not purulent. Denies n/v fever sweats chills or chest pain. Objective Exam Vital Signs Date Time Temp Pulse Resp B/P (MAP) Pulse Ox O2 Delivery O2 Flow Rate FiO2 10/30/20 07:41 37.2 85 20 154/68 (96) 95 Room Air 10/30/20 04:30 36.3 81 20 137/65 (89) 93 Room Air 10/29/20 23:45 36.6 87 20 141/84 (103) 93 Room Air 10/29/20 20:00 36.1 92 22 144/62 (89) 92 Room Air 10/29/20 19:40 Room Air 10/29/20 16:00 36.2 86 24 149/75 (99) 94 Room Air 10/29/20 11:53 36.6 84 20 172/81 (111) 94 Room Air I & O 10/30/20 07:00 Intake Total 1041 ml Output Total 5 ml Balance 1036 ml Capillary Refill : Less Than 3 Seconds General Appearance: No Apparent Distress, WD/WN, Chronically ill HEENT: PERRL/EOMI, Moist Mucous Membranes Neck: Non Tender, Supple Respiratory: Chest Non Tender, No Accessory Muscle Use, No Respiratory Distress, Wheezing Cardiovascular: Regular Rate, Rhythm Peripheral Pulses: 2+ Radial Pulses (R), 2+ Radial Pulses (L) Gastrointestinal: soft, tenderness (Minimal around drain epigastric region) Extremity: Normal Inspection, Non Tender, Pedal Edema Neurologic/Psychiatric: Alert, Oriented x3, No Motor/Sensory Deficits, Depres sed Affect Skin: Normal Color, Warm/Dry Lymphatic: No Adenopathy Results Lab Laboratory Tests 10/30/20 05:39: White Blood Count 17.9H, Red Blood Count 3.19L, Hemoglobin 9.4L, Hematocrit 29L, Mean Corpuscular Volume 89, Mean Corpuscular Hemoglobin 30, Mean Corpuscular Hemoglobin Concent 33, Red Cell Distribution Width 14.3, Platelet Count 281, Mean Platelet Volume 10.7, Immature Granulocyte % (Auto) 3, Neutrophils (%) (Auto) 82H, Lymphocytes (%) (Auto) 8L, Monocytes (%) (Auto) 6, Eosinophils (%) (Auto) 0, Basophils (%) (Auto) 0, Neutrophils # (Auto) 14.8H, Lymphocytes # (Auto) 1.5, Monocytes # (Auto) 1.1H, Eosinophils # (Auto) 0.1, Basophils # (Auto) 0.1, Immature Granulocyte # (Auto) 0.5H, Sodium Level 138, Potassium Level 4.0, Chloride Level 108H, Carbon Dioxide Level 20L, Anion Gap 10, Blood Urea Nitrogen 7, Creatinine 0.58L, Estimat Glomerular Filtration Rate > 60, BUN/Creatinine Ratio 12, Glucose Level 86, Calcium Level 8.0L, Corrected Calcium 9.4, Total Bilirubin 0.6, Aspartate Amino Transf (AST/SGOT) 20, Alanine Aminotransferase (ALT/SGPT) 15, Alkaline Phosphatase 75, Total Protein 4.8L, Albumin 2.3L, Procalcitonin 1.75H Microbiology 10/25/20 Gram Stain - Final, Complete 10/25/20 Anaerobic Culture - Final, Complete No growth 10/25/20 Surgical Culture - Final, Complete No growth 10/22/20 Blood Culture - Final, Complete No growth 10/22/20 Urine Culture - Final, Complete Mixed Bacterial Alana Strep, Beta Hemolytic Group B Assessment/Plan Assessment/Plan Assessment/Plan Liver Lesion - S/P drainage, drain in place and no signs of perforation on abdominal x-ray, no purulent fluid noted from drain UTI - on ABX B/L Pleural effusions Cultures from drain no growth. Continue abx. Ambulation, Work on respiratory status, initiate mat protocol and IS use will also help. WBC has risen today, continue to monitor labs. CT shows drain in fluid collection, septated, but decreasing in size from ct yesterday. MARTA AGRAWAL DO Oct 30, 2020 08:30
[2020-10-30] MEDS: lisINopril 10 MG (PRINIVIL) TABLET PO SCH (08:58)
[2020-10-30] MEDS: cefTRIAXone 2,000 MG in WATER (STERILE) FOR INJECTION 20 ML IV SCH (08:58)
[2020-10-30] MEDS: LACTOBACILLUS ACIDOPHILUS (PROBIOTIC) CAPSULE PO SCH ×3 (08:58→17:33)
[2020-10-30] MEDS: KCL 20 MEQ TAB (K-DUR) PO SCH ×2 (08:59→20:17)
[2020-10-30] MEDS: CHOLESTYRAMINE 4 GM (QUESTRAN LITE, PREVALITE) PKT PO SCH ×3 (09:01→22:35)
[2020-10-30 09:56] VITALS: BP 154/68
[2020-10-30 11:48] VITALS: BP 136/60
--- NOTE | 2020-10-30 12:48 | Physical Therapy Daily Note ---
PT Daily Note-Current Subjective Patient in bed pre tx, reluctantly agrees to PT after encouragement. Has no complaints of pain. Appearance Patient in bed post tx with nurse call, phone, tray, all needs met. Mental Status Patient Orientation: Person, Place, Situation Attachments: Drains Transfers SCALE: Activities may be completed with or without assistive devices. 0-Bqlmxvlsiw-kvgtuxm completes the activity by him/herself with no assistance from a helper. 5-Set-up or Clean-up Assistance-helper sets up or cleans up; patient completes activity. [place] assists only prior to or following the activity. 4-Supervision or Touching Assistance-helper provides verbal cues and/or touching/steadying and/or contact guard assistance as patient completes activity. Assistance may be provided throughout the activity or intermittently. 3-Partial/Moderate Assistance-helper does LESS THAN HALF the effort. [place] lifts, holds or supports trunk or limbs, but provides less than half the effort. 2-Substantial/Maximal Assistance-helper does MORE THAN HALF the effort. [place] lifts or holds trunk or limbs and provides more than half the effort. 9-Fkbdfgirf-d[place] does ALL the effort. Patient does none of the effort to complete the activity. Or, the assistance of 2 or more helpers is required for the patient to complete the activity. If activity was not attempted, code reason: 7-Patient Refused. 9-Not Applicable-not attempted and the patient did not perform the activity before the current illness, exacerbation or injury. 10-Not Attempted due to Environmental Limitations-(lack of equipment, weather restraints, etc.). 88-Not Attempted due to Medical Conditions or Safety Concerns. Roll Left & Right (QC): 6 Sit to Lying (QC): 6 Lying to Sitting/Side of Bed(Q: 6 Sit to Stand (QC): 6 Gait Training Distance: 300' Walk 10 feet (QC): 6 Walk 50 ft with 2 Turns(QC): 6 Walk 150 ft (QC): 6 Gait Assistive Device: FWW slow but steady independent ambulation, patient wanted to go back to bed after getting back to her room, she said she was tired and didn't want to perform further LE exercises Treatments bed mobility and transfers, ambulation Assessment Current Status: Fair Progress improving endurance PT Short Term Goals Short Term Goals Time Frame: Oct 25, 2020 Roll Left & Right: 6 Sit to lyin Lying to sitting on side of be: 6 Sit to stand: 6 Chair/odo-sc-ezvga transfer: 6 Toilet transfer: 6 Walk 10 feet: 6 Walk 50 feet with two turns: 6 Walk 150 feet: 6 PT Plan Problem List Problem List: Activity Tolerance, Functional Strength, Safety, Balance, Gait, Transfer, ROM Treatment/Plan Treatment Plan: Continue Plan of Care Treatment Plan: Education, Functional Activity [place], Functional Strength, Gait, Safety, Therapeutic Exercise, Transfers Treatment Duration: Oct 25, 2020 Frequency: 2 times per week Estimated Hrs Per Day: .25 hour per day Patient and/or Family Agrees t: Yes Safety Risks/Education Patient Education: Gait Training, Transfer Techniques, Correct Positioning, Safety Issues Teaching Recipient: Patient Teaching Methods: Demonstration, Discussion Response to Teaching: Reinforcement Needed Time/GCodes Time In: 1150 Time Out: 1201 Total Billed Treatment Time: 11 Total Billed Treatment 1 visit GT 11' ASIA BHAKTA PT Oct 30, 2020 12:48
--- NOTE | 2020-10-30 12:54 | Occupational Ther Daily Note ---
OT Current Status-Daily Note Subjective Pt alert, lying in bed. Pt states that she is not feeling well. Pt did agree to therapy. Mental Status/Objective Patient Orientation: Person, Place Attachments: IV ADL-Treatment Therapy Code Descriptions/Definitions Functional [place] Measure: 0=Not Assessed/NA 4=Minimal Assistance 1=Total Assistance 5=Supervision or Setup 2=Maximal Assistance 6=Modified [place] 3=Moderate Assistance 7=Complete IndependenceSCALE: Activities may be completed with or without assistive devices. 2-Rotflpceys-naknxlq completes the activity by him/herself with no assistance from a helper. 5-Set-up or Clean-up Assistance-helper sets up or cleans up; patient completes activity. [place] assists only prior to or following the activity. 4-Supervision or Touching Assistance-helper provides verbal cues and/or touching/steadying and/or contact guard assistance as patient completes activity. Assistance may be provided throughout the activity or intermittently. 3-Partial/Moderate Assistance-helper does LESS THAN HALF the effort. [place] lifts, holds or supports trunk or limbs, but provides less than half the effort. 2-Substantial/Maximal Assistance-helper does MORE THAN HALF the effort. [place] lifts or holds trunk or limbs and provides more than half the effort. 0-Pmpfxncxx-juyouw does ALL the effort. Patient does none of the effort to complete the activity. Or, the assistance of 2 or more helpers is required for the patient to complete the activity. If activity was not attempted, code reason: 7-Patient Refused. 9-Not Applicable-not attempted and the patient did not perform the activity before the current illness, exacerbation or injury. 10-Not Attempted due to Environmental Limitations-(lack of equipment, weather restraints, etc.). 88-Not Attempted due to Medical Conditions or Safety Concerns. Other Treatment Pt agrees to in bed exercises. Pt able to complete 3 UE exercises against gravity to increase strength and activity tolerance. 2 sets 10 reps of each exercise. After therapy, pt lying in bed with call light/phone in reach. All needs met in room. OT Alf Goals Alf Goals Time Frame: Nov 06, 2020 Eating (QC): 6 Oral Hygiene (QC): 6 Toileting Hygiene (QC): 6 Shower/Bathe Self (QC): 6 Upper Body Dressing (QC): 6 Lower Body Dressing (QC): 6 On/Off Footwear (QC): 6 Additional Goals: 1-Demonstrate ADL Tasks, 2-Verbalize Understanding, 3- ImproveStrength/[place] 1=Demonstrate adherence to instructed precautions during ADL tasks. 2=Patient will verbalize/demonstrate understanding of assistive devices/modifications for ADL. 3=Patient will improve strength/tolerance for activity to enable patient to perform ADL's. OT Education/Plan Problem List/Assessment Assessment: Decreased Activ Tolerance, Decreased UE Strength, Impaired Self- Care Skills Discharge Recommendations Plan/Recommendations: Continue POC Treatment Plan/Plan of Care Patient would benefit from OT for education, treatment and training to promote independence in ADL's, mobility, safety and/or upper extremity function for ADL's. Plan of Care: ADL Retraining, Functional Mobility, UE Funct Exercise/Act Treatment Duration: Nov 06, 2020 Frequency: 5 times per week Estimated Hrs Per Day: .25 hour per day Rehab Potential: Fair Time/GCodes Start Time: 11:40 Stop Time: 11:50 Total Time Billed (hr/min): 10 Billed Treatment Time 1 visit-EX 1 (10 min) EVELINE العلي Oct 30, 2020 12:53
--- NOTE | 2020-10-30 13:40 | Speech Therapy Daily Note ---
Speech Daily Progress Note Subjective Date Seen by Provider: Oct 30, 2020 Time Seen by Provider: 00:10 Patient was resting in her bed when I entered her room. She states she is feeling better every day. Objective Patient completed memory tasks related to her hospital stay with 80% accuracy given 10% cues. Assessment Assessment Current Status: Good Progress Treatment Plan Continue Plan of Care Speech Short Term Goals Short Term Goals Short Term Goals 1) Patient will complete memory tasks related to her daily needs at 80% or greater with minimal cues. 2) Patient will complete safety awareness tasks related to her daily needs at 80% or greater with minimal cues. 3) Patient will complete problem solving tasks related to her daily needs at 80% or greater with minimal cues. Speech Stitcher Special Machine Goals Usp Goals Patient will improve cognitive-communication abilities in order to complete daily tasks with decreased assist. Speech-Plan Patient/Family Goals Patient/Family Goals: Patient plans on returning to her home where she lives alone upon discharge. Treatment Plan Speech Therapy Treatment Plan: Continue Plan of Care Treatment Duration: Nov 01, 2020 Frequency: 3 times per week Estimated Hrs Per Day: .25 hour per day Rehab Potential: Fair Barriers to Learning: Patient's mild cognitive deficits, recent medical decline Pt/Family Agrees to Plan: Yes Safety Risks/Education Teaching Recipient: Patient Teaching Methods: Demonstration, Discussion Response to Teaching: Verbalize Understanding, Return Demonstration Education Topics Provided: Safety within her room, utilization of her call light as needed Time Speech Therapy Time In: 09:30 Speech Therapy Time Out: 09:40 Total Billed Time: 10 Billed Treatment Time 1, LUARA Morgan Oct 30, 2020 13:40
[2020-10-30 15:59] VITALS: BP 156/70
[2020-10-30] MEDS: ENOXAPARIN 40 MG/0.4 ML (LOVENOX) SYR SC SCH (17:33)
[2020-10-30 19:47] VITALS: BP 136/63
[2020-10-30] MEDS: DONEPEZIL 5 MG (ARICEPT) TAB PO SCH (20:17)
[2020-10-31] VITALS (7 sets, daily range): BP systolic 108–137; BP diastolic 60–78
[2020-10-31 06:14] LABS: BASOPHILS # (AUTO) 0.1 10^3/uL (0.0-0.1); BASOPHILS % (AUTO) 0 % (0-10); NEUTROPHILS % (AUTO) 80 % (42-75)
[2020-10-31 06:16] LABS: EOSINOPHILS % (AUTO) 0 % (0-10); HEMATOCRIT 29 % (35-52); HEMOGLOBIN 9.3 g/dL (11.5-16.0); LYMPHOCYTES # (AUTO) 1.6 10^3/uL (1.0-4.0); LYMPHOCYTES % (AUTO) 10 % (12-44); MEAN CORPUSCULAR HEMOGLOBIN 29 pg (25-34); MEAN CORPUSCULAR HGB CONC 32 g/dL (32-36); MEAN CORPUSCULAR VOLUME 90 fL (80-99); MEAN PLATELET VOLUME 11.2 fL (9.0-12.2); MONOCYTES % (AUTO) 6 % (0-12); NEUTROPHILS # (AUTO) 12.8 10^3/uL (1.8-7.8); PLATELET COUNT 251 10^3/uL (130-400); WHITE BLOOD COUNT 15.9 10^3/uL (4.3-11.0)
[2020-10-31 06:26] LABS: ALBUMIN 2.5 GM/DL (3.2-4.5); POTASSIUM 4.2 MMOL/L (3.6-5.0)
[2020-10-31 06:27] LABS: CALCIUM 8.1 MG/DL (8.5-10.1)
--- NOTE | 2020-10-31 06:28 | Progress Note - Hospitalist ---
Subjective HPI/CC On Admission Date Seen by Provider: Oct 31, 2020 Time Seen by Provider: 10:30 Pt is a 80yoCF with a PMH of HTN who presented to the ER due to fever and fatigue. She is somewhat confused and cannot recall all of her medical history. Her siser helps to fill in the gaps. She reports she has been quite fatigued for a week and had diarrhea. Her sister visited her yesterday and found her to bee quite fatigued and covered in blankets chilling. She checked her temperature and it was 102 so she brought her in for evaluation. She was found to have a leukocytosis with fever and tachycardia on arrival but no source was identified. She was admitted for sepsis of unkown origin. This morning she reports feeling somewhat better though still nto back to normal. Subjective/Events-last exam Pt doing pretty well Still having decreased appetite and weakness [facility] [place] for insurance approval Review of Systems General: Fatigue Gastrointestinal: Nausea Neurological: Weakness Objective Exam Vital Signs Vital Signs Date Time Temp Pulse Resp B/P (MAP) Pulse Ox O2 Delivery O2 Flow Rate FiO2 11/01/20 03:54 36.5 95 18 166/73 (104) 94 Room Air 10/29/20 08:00 0.00 Capillary Refill : Less Than 3 Seconds General Appearance: No Apparent Distress, WD/WN, Chronically ill Respiratory: Lungs Clear, Normal Breath Sounds Cardiovascular: Regular Rate, Rhythm Neurologic/Psychiatric: Alert, Oriented x3, No Motor/Sensory Deficits, Normal Mood/Affect Results/Procedures Lab Laboratory Tests 10/31/20 06:02 11/01/20 04:56 Patient resulted labs reviewed. Imaging: Reviewed Imaging Report Assessment/Plan Assessment and Plan Assess & Plan/Chief Complaint Assessment: Sepsis Liver abscess status post incision and drainage and drain placed by [facility] Severe vitamin B12 deficiency Iron deficiency history Dementia Hypertension Hypokalemia Severe diarrhea placed on Questran Cough Plan: IV antibiotics Vitamin B12 injection 10/28/2020: Robitussin Questran 3 times daily Advance diet PT and OT 10/29/2020: Review CT scan Maintain drain Antibiotics maintained 10/30/2020: Slow recovery Monitor closely Improved nutrition intake Continue Questran 10/31/2020: Continue Questran Swing bed to [facility] submitted to insurance KAREN TERAN DO Oct 31, 2020 06:28
[2020-10-31 06:29] LABS: TOTAL PROTEIN 5.5 GM/DL (6.4-8.2)
[2020-10-31 06:30] LABS: BILIRUBIN,TOTAL 0.6 MG/DL (0.1-1.0)
[2020-10-31 06:32] LABS: CREATININE SERUM 0.59 MG/DL (0.60-1.30)
[2020-10-31] MEDS: LACTOBACILLUS ACIDOPHILUS (PROBIOTIC) CAPSULE PO SCH ×3 (08:33→17:28)
[2020-10-31] MEDS: lisINopril 10 MG (PRINIVIL) TABLET PO SCH (08:33)
[2020-10-31] MEDS: cefTRIAXone 2,000 MG in WATER (STERILE) FOR INJECTION 20 ML IV SCH (08:33)
[2020-10-31] MEDS: KCL 20 MEQ TAB (K-DUR) PO SCH ×2 (08:33→20:46)
[2020-10-31] MEDS: CHOLESTYRAMINE 4 GM (QUESTRAN LITE, PREVALITE) PKT PO SCH ×3 (09:17→20:46)
--- NOTE | 2020-10-31 10:36 | Physical Therapy Daily Note ---
PT Daily Note-Current Subjective Patient in recliner pre tx, agrees to PT, has been having nausea but has not thrown up. Patient is trying to eat some of a bisquit bit by bit as her nausea allows. Appearance Patient in bed post tx with nurse call, phone, tray, all needs met. Mental Status Patient Orientation: Person, Place, Situation Attachments: Drains Transfers SCALE: Activities may be completed with or without assistive devices. 8-Oifseidjwg-dsawqec completes the activity by him/herself with no assistance from a helper. 5-Set-up or Clean-up Assistance-helper sets up or cleans up; patient completes activity. [place] assists only prior to or following the activity. 4-Supervision or Touching Assistance-helper provides verbal cues and/or touching/steadying and/or contact guard assistance as patient completes activity. Assistance may be provided throughout the activity or intermittently. 3-Partial/Moderate Assistance-helper does LESS THAN HALF the effort. [place] lifts, holds or supports trunk or limbs, but provides less than half the effort. 2-Substantial/Maximal Assistance-helper does MORE THAN HALF the effort. [place] lifts or holds trunk or limbs and provides more than half the effort. 9-Rizndkddu-zewhoc does ALL the effort. Patient does none of the effort to complete the activity. Or, the assistance of 2 or more helpers is required for the patient to complete the activity. If activity was not attempted, code reason: 7-Patient Refused. 9-Not Applicable-not attempted and the patient did not perform the activity before the current illness, exacerbation or injury. 10-Not Attempted due to Environmental Limitations-(lack of equipment, weather restraints, etc.). 88-Not Attempted due to Medical Conditions or Safety Concerns. Roll Left & Right (QC): 6 Sit to Lying (QC): 6 Sit to Stand (QC): 5 Chair/Haa-tk-Ykzhj Xfer(QC): 5 Gait Training Distance: 300' Walk 10 feet (QC): 5 Walk 50 ft with 2 Turns(QC): 5 Walk 150 ft (QC): 5 Gait Assistive Device: FWW slow but steady ambulation, nausea continues per patient about the same as it was Exercises Seated Therapy Exercises: Ankle pumps, Long arc quads Seated Reps: 20 Treatments bed mobility and transfers, ambulation, LE strengthening Assessment Current Status: Fair Progress continued improvement in functional mobility despite nausea PT Short Term Goals Short Term Goals Time Frame: Oct 25, 2020 Roll Left & Right: 6 Sit to lyin Lying to sitting on side of be: 6 Sit to stand: 6 Chair/mmt-rg-abozc transfer: 6 Toilet transfer: 6 Walk 10 feet: 6 Walk 50 feet with two turns: 6 Walk 150 feet: 6 PT Plan Problem List Problem List: Activity Tolerance, Functional Strength, Safety, Balance, Gait, Transfer Treatment/Plan Treatment Plan: Continue Plan of Care Treatment Plan: Education, Functional Activity Joselin, Functional Strength, Gait, Safety, Therapeutic Exercise, Transfers Treatment Duration: Oct 25, 2020 Frequency: 2 times per week Estimated Hrs Per Day: .25 hour per day Patient and/or Family Agrees t: Yes Safety Risks/Education Patient Education: Gait Training, Transfer Techniques, Correct Positioning, Safety Issues Teaching Recipient: Patient Teaching Methods: Demonstration, Discussion Response to Teaching: Reinforcement Needed Time/GCodes Time In: 1003 Time Out: 1015 Total Billed Treatment Time: 12 Total Billed Treatment 1 visit GT 12' ASIA BHAKTA PT Oct 31, 2020 10:36
--- NOTE | 2020-10-31 11:43 | Occupational Ther Daily Note ---
OT Current Status-Daily Note Subjective Pt laying in bed, states she doesn't feel good. Has been nauseous and had diarrhea. Mental Status/Objective Patient Orientation: Person, Place, Situation ADL-Treatment Therapy Code Descriptions/Definitions Functional [place] Measure: 0=Not Assessed/NA 4=Minimal Assistance 1=Total Assistance 5=Supervision or Setup 2=Maximal Assistance 6=Modified [place] 3=Moderate Assistance 7=Complete IndependenceSCALE: Activities may be completed with or without assistive devices. 5-Wztmqulmgt-kmjafrx completes the activity by him/herself with no assistance from a helper. 5-Set-up or Clean-up Assistance-helper sets up or cleans up; patient completes activity. [place] assists only prior to or following the activity. 4-Supervision or Touching Assistance-helper provides verbal cues and/or touching/steadying and/or contact guard assistance as patient completes activity. Assistance may be provided throughout the activity or intermittently. 3-Partial/Moderate Assistance-helper does LESS THAN HALF the effort. [place] lifts, holds or supports trunk or limbs, but provides less than half the effort. 2-Substantial/Maximal Assistance-helper does MORE THAN HALF the effort. [place] lifts or holds trunk or limbs and provides more than half the effort. 2-Bibgiwwlx-znzsff does ALL the effort. Patient does none of the effort to complete the activity. Or, the assistance of 2 or more helpers is required for the patient to complete the activity. If activity was not attempted, code reason: 7-Patient Refused. 9-Not Applicable-not attempted and the patient did not perform the activity before the current illness, exacerbation or injury. 10-Not Attempted due to Environmental Limitations-(lack of equipment, weather restraints, etc.). 88-Not Attempted due to Medical Conditions or Safety Concerns. Eating (QC): 7 (Pt declined eating due to not feeling well) Shower/Bathe Self (QC): 7 Other Treatment Pt laying in bed, states she does not feel good. Declines OOB activities at this time, but agreeable to ADL tx. Pt washed face with set up assistance. Min A with combing hair due to tangles in back of head. Pt able to use bed rails to pull herself into long sitting while OT untangled back of hair. Pt declined UE exercises at this time, but agreeable to completing later in the day when she has more energy. Post tx, pt laying in bed, call light in reach and all needs met. Education OT Patient Education: Correct positioning, Modified ADL techniques, Progress toward Goal/Update tx plan, Purpose of tx/functional activities Teaching Recipient: Patient Teaching Methods: Discussion Response to Teaching: Verbalize Understanding OT Longterm Goals Financial Accountant Goals Time Frame: Nov 06, 2020 Eating (QC): 6 Oral Hygiene (QC): 6 Toileting Hygiene (QC): 6 Shower/Bathe Self (QC): 6 Upper Body Dressing (QC): 6 Lower Body Dressing (QC): 6 On/Off Footwear (QC): 6 Additional Goals: 1-Demonstrate ADL Tasks, 2-Verbalize Understanding, 3- ImproveStrength/Joselin 1=Demonstrate adherence to instructed precautions during ADL tasks. 2=Patient will verbalize/demonstrate understanding of assistive devices/mo difications for ADL. 3=Patient will improve strength/tolerance for activity to enable patient to perform ADL's. OT Education/Plan Problem List/Assessment Assessment: Decreased Activ Tolerance, Decreased UE Strength, Impaired I ADL's, Impaired Self-Care Skills Discharge Recommendations Plan/Recommendations: Continue POC Treatment Plan/Plan of Care Patient would benefit from OT for education, treatment and training to promote independence in ADL's, mobility, safety and/or upper extremity function for ADL's. Plan of Care: ADL Retraining, Functional Mobility, UE Funct Exercise/Act Treatment Duration: Nov 06, 2020 Frequency: 5 times per week Estimated Hrs Per Day: .25 hour per day Rehab Potential: Fair Time/GCodes Start Time: 11:15 Stop Time: 11:25 Total Time Billed (hr/min): 10 Billed Treatment Time 1, ADL SUZY BRYAN OT Oct 31, 2020 11:43
--- NOTE | 2020-10-31 12:10 | Progress Note ---
BRADLEY SERRANO MED STUDENT 10/31/20 1210: Progress Note CC: Still having diarrhea and occasional cough. No new complaints. PE: general: well-appearing, no acute distress CV: RRR, no edema respiratory: CTAB, no wheezing abdomen:soft, nontender, drain in place extremity: normal appearance, no tenderness neuro/psych: alert, normal mood/affect Assessment/Plan: sepsis-improved leukocytosis improving Rocephin liver abscess Dr. Strong following dementia hypertension hypokalemia-resolved diarrhea Questran cough Robitussin Working with PT/OT/STShyanne Romeonox for DVT prophylaxis. Plan to transfer to [facility]. MARY CARMEN TERAN DO 10/31/202127: Supervisory-Addendum Brief Verification & Attestation Participated in pt care: history, MDM, physical Personally performed: exam, history, MDM, supervision of care Care discussed with: Medical Student Procedures: n/a Results interpretation: Verified all documentation Verification and Attestation of Medical Student E/M Service A medical student performed and documented this service in my presence. I reviewed and verified all information documented by the medical student and made modifications to such information, when appropriate. I personally performed the physical exam and medical decision making. Mary Carmen Teran, Oct 31, 2020,21:28 BRADLEY SERRANO MED STUDENT Oct 31, 2020 12:10 MARY CARMEN TERAN DO Oct 31, 2020 21:28
--- NOTE | 2020-10-31 15:15 | Progress Note - Surgery ---
Subjective Date Seen by a Provider: Oct 31, 2020 Time Seen by a Provider: 15:11 Subjective/Events-last exam Patient states she had a little shortness of breath. She is sparingly using the incentive spirometer. Not doing very well with it. Patient states she is not having any abdominal pain. Not having any nausea or vomiting. Tolerating diet. Denies fever sweats chills shortness of breath or chest pain at this time. Objective Exam Vital Signs Date Time Temp Pulse Resp B/P (MAP) Pulse Ox O2 Delivery O2 Flow Rate FiO2 10/31/20 15:05 37.9 96 22 128/77 (94) 95 Room Air 10/31/20 08:00 95 Room Air 10/31/20 07:20 36.8 81 22 133/78 (96) 93 Room Air 10/31/20 03:55 36.5 82 22 134/60 (84) 90 Room Air 10/31/20 00:00 37.6 81 22 120/67 (84) 95 Room Air 10/30/20 20:15 95 Room Air 10/30/20 19:47 37.4 91 28 136/63 (87) 95 Room Air 10/30/20 15:59 36.2 96 22 156/70 (98) 96 Room Air I & O 10/31/20 07:00 Intake Total 1340 ml Output Total 420 ml Balance 920 ml Capillary Refill : Less Than 3 Seconds General Appearance: No Apparent Distress, WD/WN HEENT: PERRL/EOMI, Moist Mucous Membranes Neck: Non Tender, Supple Respiratory: Chest Non Tender, Lungs Clear, Normal Breath Sounds Cardiovascular: Regular Rate, Rhythm Peripheral Pulses: 2+ Radial Pulses (R), 2+ Radial Pulses (L) Gastrointestinal: soft, tenderness (Minimal around drain epigastric region, serosanguineous) Extremity: Normal Inspection, Non Tender, Pedal Edema Neurologic/Psychiatric: Alert, Oriented x3, Depressed Affect Skin: Normal Color, Warm/Dry Lymphatic: No Adenopathy Results Lab Laboratory Tests 10/31/20 06:02: White Blood Count 15.9H, Red Blood Count 3.21L, Hemoglobin 9.3L, Hematocrit 29L, Mean Corpuscular Volume 90, Mean Corpuscular Hemoglobin 29, Mean Corpuscular He moglobin Concent 32, Red Cell Distribution Width 14.6H, Platelet Count 251, Mean Platelet Volume 11.2, Immature Granulocyte % (Auto) 3, Neutrophils (%) (Auto) 80H, Lymphocytes (%) (Auto) 10L, Monocytes (%) (Auto) 6, Eosinophils (%) (Auto) 0, Basophils (%) (Auto) 0, Neutrophils # (Auto) 12.8H, Lymphocytes # (Auto) 1.6, Monocytes # (Auto) 1.0, Eosinophils # (Auto) 0.0, Basophils # (Auto) 0.1, Immature Granulocyte # (Auto) 0.5H, Percent Immature Platelet Fraction 9.9H, Sodium Level 137, Potassium Level 4.2, Chloride Level 107, Carbon Dioxide Level 19L, Anion Gap 11, Blood Urea Nitrogen 4L, Creatinine 0.59L, Estimat Glomerular Filtration Rate 99, BUN/Creatinine Ratio 7, Glucose Level 89, Calcium Level 8.1L , Corrected Calcium 9.3, Total Bilirubin 0.6, Aspartate Amino Transf (AST/SGOT) 19, Alanine Aminotransferase (ALT/SGPT) 14, Alkaline Phosphatase 82, Total Protein 5.5L, Albumin 2.5L Microbiology 10/25/20 Gram Stain - Final, Complete 10/25/20 Anaerobic Culture - Final, Complete No growth 10/25/20 Surgical Culture - Final, Complete No growth 10/22/20 Blood Culture - Final, Complete No growth 10/22/20 Urine Culture - Final, Complete Mixed Bacterial Alana Strep, Beta Hemolytic Group B Assessment/Plan Assessment/Plan Assessment/Plan Liver Lesion - S/P drainage, drain in place and no signs of perforation on abdominal x-ray, no purulent fluid noted from drain UTI - on ABX B/L Pleural effusions Cultures from drain no growth. Continue abx. Ambulation, Work on respiratory status, mat protocol and IS use will also help. WBC has decreased today, continue to monitor labs. drain minimal output, will remove MARTA AGRAWAL DO Oct 31, 2020 15:15
[2020-10-31] MEDS: ENOXAPARIN 40 MG/0.4 ML (LOVENOX) SYR SC SCH (17:29)
[2020-10-31] MEDS: DONEPEZIL 5 MG (ARICEPT) TAB PO SCH (20:46)
[2020-11-01 03:54] VITALS: BP 166/73
[2020-11-01 05:07] LABS: BASOPHILS # (AUTO) 0.1 10^3/uL (0.0-0.1); BASOPHILS % (AUTO) 0 % (0-10); EOSINOPHILS # (AUTO) 0.1 10^3/uL (0.0-0.3); EOSINOPHILS % (AUTO) 1 % (0-10); HEMATOCRIT 28 % (35-52); HEMOGLOBIN 9.2 g/dL (11.5-16.0); LYMPHOCYTES # (AUTO) 1.3 10^3/uL (1.0-4.0); LYMPHOCYTES % (AUTO) 11 % (12-44); MEAN CORPUSCULAR HEMOGLOBIN 29 pg (25-34); MEAN CORPUSCULAR HGB CONC 32 g/dL (32-36); MEAN CORPUSCULAR VOLUME 90 fL (80-99); MEAN PLATELET VOLUME 10.6 fL (9.0-12.2); MONOCYTES % (AUTO) 8 % (0-12); NEUTROPHILS # (AUTO) 9.5 10^3/uL (1.8-7.8); NEUTROPHILS % (AUTO) 77 % (42-75); PLATELET COUNT 361 10^3/uL (130-400); WHITE BLOOD COUNT 12.2 10^3/uL (4.3-11.0)
[2020-11-01 05:20] LABS: ALBUMIN 2.4 GM/DL (3.2-4.5)
[2020-11-01 05:21] LABS: POTASSIUM 4.1 MMOL/L (3.6-5.0)
[2020-11-01 05:22] LABS: CALCIUM 8.1 MG/DL (8.5-10.1)
[2020-11-01 05:23] LABS: TOTAL PROTEIN 5.2 GM/DL (6.4-8.2)
[2020-11-01 05:25] LABS: BILIRUBIN,TOTAL 0.6 MG/DL (0.1-1.0)
[2020-11-01 05:27] LABS: CREATININE SERUM 0.54 MG/DL (0.60-1.30)
--- NOTE | 2020-11-01 06:13 | Progress Note - Hospitalist ---
Subjective HPI/CC On Admission Date Seen by Provider: Nov 01, 2020 Time Seen by Provider: 09:30 Pt is a 80yoCF with a PMH of HTN who presented to the ER due to fever and fatigue. She is somewhat confused and cannot recall all of her medical history. Her siser helps to fill in the gaps. She reports she has been quite fatigued for a week and had diarrhea. Her sister visited her yesterday and found her to bee quite fatigued and covered in blankets chilling. She checked her temperature and it was 102 so she brought her in for evaluation. She was found to have a leukocytosis with fever and tachycardia on arrival but no source was identified. She was admitted for sepsis of unkown origin. This morning she reports feeling somewhat better though still nto back to normal. Subjective/Events-last exam Pt doing really well Picc line will be placed Cough issues are from the pleural effusion and volume overload so will give her one dose of Lasix 20 mg Rocephin still on board Lasix is helping when given Mucinex 600 mg BID will be given on a scheduled basis WBC 12.2 Eating and drinking a little better Diarrhea is improved Son and dldxhktr-pl-qwg are at the bedside Review of Systems General: Fatigue, Malaise Objective Exam Vital Signs Vital Signs Date Time Temp Pulse Resp B/P (MAP) Pulse Ox O2 Delivery O2 Flow Rate FiO2 11/01/20 19:49 37.1 93 18 130/61 (84) 95 Room Air 10/29/20 08:00 0.00 Capillary Refill : Less Than 3 Seconds General Appearance: No Apparent Distress, WD/WN, Chronically ill Respiratory: Lungs Clear, Normal Breath Sounds Cardiovascular: Regular Rate, Rhythm (A little) Neurologic/Psychiatric: Alert, Oriented x3, Depressed Affect Results/Procedures Lab Laboratory Tests 11/01/20 04:56 Patient resulted labs reviewed. Imaging: Reviewed Imaging Report Assessment/Plan Assessment and Plan Assess & Plan/Chief Complaint Assessment: Sepsis Liver abscess status post incision and drainage and drain placed by interventional radiology Severe vitamin B12 deficiency Iron deficiency history Dementia Hypertension Hypokalemia Severe diarrhea placed on Questran Cough Plan: IV antibiotics Vitamin B12 injection 10/28/2020: Robitussin Questran 3 times daily Advance diet PT and OT 10/29/2020: Review CT scan Maintain drain Antibiotics maintained 10/30/2020: Slow recovery Monitor closely Improved nutrition intake Continue Questran 10/31/2020: Continue Questran Swing bed to [facility] submitted to insurance 11/01/2020: Supportive care Monitor closely IV Lasix PICC line IV antibiotics KAREN TERAN DO Nov 01, 2020 06:13
[2020-11-01 07:57] VITALS: BP 143/79
[2020-11-01] MEDS: KCL 20 MEQ TAB (K-DUR) PO SCH ×2 (08:02→20:31)
[2020-11-01] MEDS: LACTOBACILLUS ACIDOPHILUS (PROBIOTIC) CAPSULE PO SCH ×3 (08:02→17:34)
[2020-11-01] MEDS: lisINopril 10 MG (PRINIVIL) TABLET PO SCH (08:02)
[2020-11-01] MEDS: cefTRIAXone 2,000 MG in WATER (STERILE) FOR INJECTION 20 ML IV SCH (08:03)
--- NOTE | 2020-11-01 10:04 | Progress Note - Surgery ---
Subjective Date Seen by a Provider: Nov 01, 2020 Time Seen by a Provider: 09:59 Subjective/Events-last exam Patient using IS some, but not doing well with it she says. Slight cough. Drain removed yesterday. Breathing a little bit harder. No abdominal pain. Drain no growth, and minimal output which was serosang. Patient no new complaints. Denies fever sweats chills or chest pain at this time. Objective Exam Vital Signs Date Time Temp Pulse Resp B/P (MAP) Pulse Ox O2 Delivery O2 Flow Rate FiO2 11/01/20 07:57 36.4 95 20 143/79 (100) 95 Room Air 11/01/20 03:54 36.5 95 18 166/73 (104) 94 Room Air 10/31/20 23:49 36.2 81 18 108/64 (79) 94 Room Air 10/31/20 20:00 Room Air 10/31/20 19:49 36.4 93 18 137/75 (95) 95 Room Air 10/31/20 16:00 36.7 88 18 122/74 (90) 94 Room Air 10/31/20 15:05 37.9 96 22 128/77 (94) 95 Room Air I & O 11/01/20 07:00 Intake Total 890 ml Output Total 5 ml Balance 885 ml Capillary Refill : Less Than 3 Seconds General Appearance: No Apparent Distress, WD/WN, Chronically ill HEENT: PERRL/EOMI, Moist Mucous Membranes Neck: Non Tender, Supple Respiratory: Chest Non Tender, Normal Breath Sounds Cardiovascular: Regular Rate, Rhythm Peripheral Pulses: 2+ Radial Pulses (R), 2+ Radial Pulses (L) Gastrointestinal: soft, tenderness (minimal) Extremity: Normal Inspection, Non Tender, Pedal Edema Neurologic/Psychiatric: Alert, Oriented x3, No Motor/Sensory Deficits, Normal Mood/Affect Skin: Normal Color, Warm/Dry Lymphatic: No Adenopathy Results Lab Laboratory Tests 11/01/20 04:56: White Blood Count 12.2H, Red Blood Count 3.16L, Hemoglobin 9.2L, Hematocrit 28L, Mean Corpuscular Volume 90, Mean Corpuscular Hemoglobin 29, Mean Corpuscular Hemoglobin Concent 32, Red Cell Distribution Width 14.6H, Platelet Count 361, Mean Platelet Volume 10.6, Immature Granulocyte % (Auto) 3, Neutrophils (%) (Auto) 77H, Lymphocytes (%) (Auto) 11L, Monocytes (%) (Auto) 8, Eosinophils (%) (Auto) 1, Basophils (%) (Auto) 0, Neutrophils # (Auto) 9.5H, Lymphocytes # (Auto) 1.3, Monocytes # (Auto) 1.0, Eosinophils # (Auto) 0.1, Basophils # (Auto) 0.1, Immature Granulocyte # (Auto) 0.4H, Sodium Level 138, Potassium Level 4.1, Chloride Level 109H, Carbon Dioxide Level 21, Anion Gap 8, Blood Urea Nitrogen 4L, Creatinine 0.54L, Estimat Glomerular Filtration Rate 109, BUN/Creatinine Ratio 7, Glucose Level 86, Calcium Level 8.1L, Corrected Calcium 9.4, Total Bilirubin 0.6, Aspartate Amino Transf (AST/SGOT) 19, Alanine Aminotransferase (ALT/SGPT) 11, Alkaline Phosphatase 71, Total Protein 5.2L, Albumin 2.4L Microbiology 10/25/20 Gram Stain - Final, Complete 10/25/20 Anaerobic Culture - Final, Complete No growth 10/25/20 Surgical Culture - Final, Complete No growth 10/22/20 Blood Culture - Final, Complete No growth 10/22/20 Urine Culture - Final, Complete Mixed Bacterial Alana Strep, Beta Hemolytic Group B Assessment/Plan Assessment/Plan Assessment/Plan Liver Lesion - S/P drainage, drain in place and no signs of perforation on abdominal x-ray, no purulent fluid noted from drain which was removed. UTI - on ABX B/L Pleural effusions Cultures from drain no growth. Continue abx. Ambulation, Work on respiratory status, mat protocol and IS use will also help. WBC has decreased today will sign off, call if needed. MARTA AGRAWAL DO Nov 01, 2020 10:04
--- NOTE | 2020-11-01 10:39 | Physical Therapy Daily Note ---
PT Daily Note-Current Subjective Patient in recliner pre tx, agrees to PT, has no complaints of pain. Appearance Patient in recliner post tx with nurse call, phone, tray, all needs met. Family in the room. Mental Status Patient Orientation: Person, Place, Situation Transfers SCALE: Activities may be completed with or without assistive devices. 3-Luuaembwha-hpnwais completes the activity by him/herself with no assistance from a helper. 5-Set-up or Clean-up Assistance-helper sets up or cleans up; patient completes activity. [place] assists only prior to or following the activity. 4-Supervision or Touching Assistance-helper provides verbal cues and/or touching/steadying and/or contact guard assistance as patient completes activity. Assistance may be provided throughout the activity or intermittently. 3-Partial/Moderate Assistance-helper does LESS THAN HALF the effort. [place] lif ts, holds or supports trunk or limbs, but provides less than half the effort. 2-Substantial/Maximal Assistance-helper does MORE THAN HALF the effort. [place] lifts or holds trunk or limbs and provides more than half the effort. 7-Mfgxghhql-edwksi does ALL the effort. Patient does none of the effort to complete the activity. Or, the assistance of 2 or more helpers is required for the patient to complete the activity. If activity was not attempted, code reason: 7-Patient Refused. 9-Not Applicable-not attempted and the patient did not perform the activity before the current illness, exacerbation or injury. 10-Not Attempted due to Environmental Limitations-(lack of equipment, weather restraints, etc.). 88-Not Attempted due to Medical Conditions or Safety Concerns. Sit to Stand (QC): 6 Chair/Cdh-yp-Nihtu Xfer(QC): 6 Gait Training Distance: 600' Walk 10 feet (QC): 6 Walk 50 ft with 2 Turns(QC): 6 Walk 150 ft (QC): 6 Gait Assistive Device: FWW slow but steady ambulation Treatments ambulation Assessment Current Status: Fair Progress improving endurance PT Short Term Goals Short Term Goals Time Frame: Oct 25, 2020 Roll Left & Right: 6 Sit to lyin Lying to sitting on side of be: 6 Sit to stand: 6 Chair/nei-gw-ayppn transfer: 6 Toilet transfer: 6 Walk 10 feet: 6 Walk 50 feet with two turns: 6 Walk 150 feet: 6 PT Plan Problem List Problem List: Activity Tolerance, Functional Strength, Safety, Balance, Gait, Transfer Treatment/Plan Treatment Plan: Continue Plan of Care Treatment Plan: Education, Functional Activity Joselin, Functional Strength, Gait, Safety, Therapeutic Exercise, Transfers Treatment Duration: Oct 25, 2020 Frequency: 2 times per week Estimated Hrs Per Day: .25 hour per day Patient and/or Family Agrees t: Yes Safety Risks/Education Patient Education: Gait Training, Transfer Techniques, Correct Positioning, Safety Issues Teaching Recipient: Patient Teaching Methods: Demonstration, Discussion Response to Teaching: Reinforcement Needed Time/GCodes Time In: 0958 Time Out: 1010 Total Billed Treatment Time: 12 Total Billed Treatment 1 visit GT 12' ASIA BHAKTA PT Nov 01, 2020 10:39
--- NOTE | 2020-11-01 10:49 | Occupational Ther Daily Note ---
OT Current Status-Daily Note Subjective Pt alert, lying in bed. Pt agrees to therapy. No c/o pain at this time. Mental Status/Objective Patient Orientation: Person, Place, Time, Situation Attachments: IV ADL-Treatment Pt agrees to ambulate to bathroom and complete oral care. Supine <--> EOB independent. SBA to ambulate with FWW to bathroom. Standing at sink, pt able to complete oral care and grooming by self with SBA for safety. After therapy, pt lying in bed with call light/phone in reach. All needs met in room. Therapy Code Descriptions/Definitions Functional [place] Measure: 0=Not Assessed/NA 4=Minimal Assistance 1=Total Assistance 5=Supervision or Setup 2=Maximal Assistance 6=Modified [place] 3=Moderate Assistance 7=Complete IndependenceSCALE: Activities may be completed with or without assistive devices. 4-Qqanwndftg-csegogo completes the activity by him/herself with no assistance from a helper. 5-Set-up or Clean-up Assistance-helper sets up or cleans up; patient completes activity. [place] assists only prior to or following the activity. 4-Supervision or Touching Assistance-helper provides verbal cues and/or touching/steadying and/or contact guard assistance as patient completes activity. Assistance may be provided throughout the activity or intermittently. 3-Partial/Moderate Assistance-helper does LESS THAN HALF the effort. [place] lifts, holds or supports trunk or limbs, but provides less than half the effort. 2-Substantial/Maximal Assistance-helper does MORE THAN HALF the effort. [place] lifts or holds trunk or limbs and provides more than half the effort. 9-Ccunkaezy-vczkod does ALL the effort. Patient does none of the effort to complete the activity. Or, the assistance of 2 or more helpers is required for the patient to complete the activity. If activity was not attempted, code reason: 7-Patient Refused. 9-Not Applicable-not attempted and the patient did not perform the activity before the current illness, exacerbation or injury. 10-Not Attempted due to Environmental Limitations-(lack of equipment, weather restraints, etc.). 88-Not Attempted due to Medical Conditions or Safety Concerns. 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 2=Patient will verbalize/demonstrate understanding of assistive devices/modifications for ADL. 3=Patient will improve strength/tolerance for activity to enable patient to perform ADL's. OT Education/Plan Problem List/Assessment Assessment: Decreased Activ Tolerance, Decreased UE Strength, Impaired Self- Care Skills Discharge Recommendations Plan/Recommendations: Continue POC Treatment Plan/Plan of Care Patient would benefit from OT for education, treatment and training to promote independence in ADL's, mobility, safety and/or upper extremity function for ADL's. Plan of Care: ADL Retraining, Functional Mobility, UE Funct Exercise/Act Treatment Duration: Nov 06, 2020 Frequency: 5 times per week Estimated Hrs Per Day: .25 hour per day Rehab Potential: Fair Time/GCodes Start Time: 10:31 Stop Time: 10:46 Total Time Billed (hr/min): 15 Billed Treatment Time 1 visit-ADL 1 (15 min) EVELINE العلي Nov 01, 2020 10:48
[2020-11-01] MEDS ORDERED: FUROSEMIDE 40 MG/4 ML INJ (LASIX) IVP ONE (11:15)
[2020-11-01] MEDS: CHOLESTYRAMINE 4 GM (QUESTRAN LITE, PREVALITE) PKT PO SCH ×3 (11:18→20:31)
[2020-11-01] MEDS: guaiFENesin (MUCINEX) 600 MG TAB PO SCH ×2 (11:18→20:31)
[2020-11-01 12:00] VITALS: BP 122/68
--- NOTE | 2020-11-01 12:03 | Progress Note ---
BRADLEY SERRANO MED STUDENT 11/01/20 1203: Progress Note CC: Pt feels that her diarrhea and appetite have improved. Still notes persistent cough. No other complaints. PE: general: well-appearing, no distress CV: RRR, no edema respiratory: CTAB, no respiratory distress abdomen: soft, nontender, non-distended extremity: normal inspection, nontender neuro/psych: alert, normal mood/affect Assessment/plan: liver abscess drain tube removed yesterday diarrhea-improving Questran cough Lasix Mucinex dementia HTN sepsis-improved leukocytosis improving Rocephin Working with PT/OT Waiting for insurance approval for transfer to [facility]. MARY CARMEN TERAN DO 11/01/202044: Supervisory-Addendum Brief Verification & Attestation Participated in pt care: history, MDM, physical Personally performed: exam, history, MDM, supervision of care Care discussed with: Medical Student Procedures: n/a Results interpretation: Verified all documentation Verification and Attestation of Medical Student E/M Service A medical student performed and documented this service in my presence. I reviewed and verified all information documented by the medical student and made modifications to such information, when appropriate. I personally performed the physical exam and medical decision making. Mary Carmen Teran, Nov 01, 2020,20:45 BRADLEY SERRANO MED STUDENT Nov 01, 2020 12:03 MARY CARMEN TERAN DO Nov 01, 2020 20:45
[2020-11-01 15:04] VITALS: BP 128/72
[2020-11-01] MEDS: ENOXAPARIN 40 MG/0.4 ML (LOVENOX) SYR SC SCH (17:34)
[2020-11-01 19:49] VITALS: BP 130/61
[2020-11-01] MEDS: DONEPEZIL 5 MG (ARICEPT) TAB PO SCH (20:31)
[2020-11-01 23:26] VITALS: BP 118/69
[2020-11-02 04:15] LABS: BASOPHILS % (AUTO) 0 % (0-10); EOSINOPHILS # (AUTO) 0.1 10^3/uL (0.0-0.3); EOSINOPHILS % (AUTO) 1 % (0-10); HEMATOCRIT 27 % (35-52); HEMOGLOBIN 9.1 g/dL (11.5-16.0); LYMPHOCYTES # (AUTO) 1.8 10^3/uL (1.0-4.0); LYMPHOCYTES % (AUTO) 16 % (12-44); MEAN CORPUSCULAR HEMOGLOBIN 30 pg (25-34); MEAN CORPUSCULAR HGB CONC 34 g/dL (32-36); MEAN CORPUSCULAR VOLUME 89 fL (80-99); MEAN PLATELET VOLUME 10.4 fL (9.0-12.2); MONOCYTES # (AUTO) 1.1 10^3/uL (0.0-1.0); MONOCYTES % (AUTO) 10 % (0-12); NEUTROPHILS # (AUTO) 7.7 10^3/uL (1.8-7.8); NEUTROPHILS % (AUTO) 71 % (42-75); PLATELET COUNT 370 10^3/uL (130-400); WHITE BLOOD COUNT 10.9 10^3/uL (4.3-11.0)
[2020-11-02 04:25] LABS: ALBUMIN 2.5 GM/DL (3.2-4.5); POTASSIUM 4.3 MMOL/L (3.6-5.0)
[2020-11-02 04:26] LABS: CALCIUM 8.2 MG/DL (8.5-10.1)
[2020-11-02 04:28] LABS: TOTAL PROTEIN 5.6 GM/DL (6.4-8.2)
[2020-11-02 04:29] LABS: BILIRUBIN,TOTAL 0.5 MG/DL (0.1-1.0)
[2020-11-02 04:31] LABS: CREATININE SERUM 0.61 MG/DL (0.60-1.30)
--- NOTE | 2020-11-02 06:58 | Progress Note - Hospitalist ---
Subjective HPI/CC On Admission Date Seen by Provider: Nov 02, 2020 Time Seen by Provider: 06:30 Pt is a 80yoCF with a PMH of HTN who presented to the ER due to fever and fatigue. She is somewhat confused and cannot recall all of her medical history. Her siser helps to fill in the gaps. She reports she has been quite fatigued for a week and had diarrhea. Her sister visited her yesterday and found her to bee quite fatigued and covered in blankets chilling. She checked her temperature and it was 102 so she brought her in for evaluation. She was found to have a leukocytosis with fever and tachycardia on arrival but no source was identified. She was admitted for sepsis of unkown origin. This morning she reports feeling somewhat better though still nto back to normal. Subjective/Events-last exam Pt feels much better Decreasing cough Lasix has helped decrease the pleural effusions thus decreasing the cough Labs are finally back to normal, WBC is normal Feels really good otherwise Checked meds and labs No falls Review of Systems General: Fatigue, Malaise Objective Exam Vital Signs Vital Signs Date Time Temp Pulse Resp B/P (MAP) Pulse Ox O2 Delivery O2 Flow Rate FiO2 11/02/20 23:41 36.2 86 18 135/60 (85) 95 Room Air 10/29/20 08:00 0.00 Capillary Refill : Less Than 3 Seconds General Appearance: No Apparent Distress, WD/WN, Chronically ill Respiratory: Lungs Clear, Normal Breath Sounds Cardiovascular: Regular Rate, Rhythm Neurologic/Psychiatric: Alert, Oriented x3, Depressed Affect Results/Procedures Lab Patient resulted labs reviewed. Imaging: Reviewed Imaging Report Assessment/Plan Assessment and Plan Assess & Plan/Chief Complaint Assessment: Sepsis Liver abscess status post incision and drainage and drain placed by interventional radiology Severe vitamin B12 deficiency Iron deficiency history Dementia Hypertension Hypokalemia Severe diarrhea placed on Questran Cough Plan: IV antibiotics Vitamin B12 injection 10/28/2020: Robitussin Questran 3 times daily Advance diet PT and OT 10/29/2020: Review CT scan Maintain drain Antibiotics maintained 10/30/2020: Slow recovery Monitor closely Improved nutrition intake Continue Questran 10/31/2020: Continue Questran Swing bed to [facility] submitted to insurance 11/01/2020: Supportive care Monitor closely IV Lasix PICC line IV antibiotics 11/02/2020: Continue supportive care Rocephin IV Lasix as needed KAREN TERAN DO Nov 02, 2020 06:58
[2020-11-02 08:24] VITALS: BP 135/64
[2020-11-02] MEDS: guaiFENesin (MUCINEX) 600 MG TAB PO SCH ×2 (09:00→21:04)
[2020-11-02] MEDS: lisINopril 10 MG (PRINIVIL) TABLET PO SCH (09:00)
[2020-11-02] MEDS: KCL 20 MEQ TAB (K-DUR) PO SCH ×2 (09:00→21:04)
[2020-11-02] MEDS: LACTOBACILLUS ACIDOPHILUS (PROBIOTIC) CAPSULE PO SCH ×3 (09:00→18:27)
[2020-11-02] MEDS: cefTRIAXone 2,000 MG in WATER (STERILE) FOR INJECTION 20 ML IV SCH (09:00)
[2020-11-02] MEDS: CHOLESTYRAMINE 4 GM (QUESTRAN LITE, PREVALITE) PKT PO SCH ×3 (09:00→21:04)
--- NOTE | 2020-11-02 13:43 | Physical Therapy Daily Note ---
PT Daily Note-Current Subjective Patient sitting in the chair upon PT arrival, reports she just had a bath. Patient agreeable to treatment. Pain Numeric Pain Scale: 0-No Pain Transfers SCALE: Activities may be completed with or without assistive devices. 7-Ultmrntopa-ieqmraz completes the activity by him/herself with no assistance from a helper. 5-Set-up or Clean-up Assistance-helper sets up or cleans up; patient completes activity. [place] assists only prior to or following the activity. 4-Supervision or Touching Assistance-helper provides verbal cues and/or touching/steadying and/or contact guard assistance as patient completes activity. Assistance may be provided throughout the activity or intermittently. 3-Partial/Moderate Assistance-helper does LESS THAN HALF the effort. [place] lifts, holds or supports trunk or limbs, but provides less than half the effort. 2-Substantial/Maximal Assistance-helper does MORE THAN HALF the effort. [place] lifts or holds trunk or limbs and provides more than half the effort. 9-Nspsacuvx-qgazng does ALL the effort. Patient does none of the effort to complete the activity. Or, the assistance of 2 or more helpers is required for the patient to complete the activity. If activity was not attempted, code reason: 7-Patient Refused. 9-Not Applicable-not attempted and the patient did not perform the activity before the current illness, exacerbation or injury. 10-Not Attempted due to Environmental Limitations-(lack of equipment, weather restraints, etc.). 88-Not Attempted due to Medical Conditions or Safety Concerns. Sit to Stand (QC): 6 Chair/Wyf-lf-Cjkib Xfer(QC): 6 Gait Training Does the Patient Walk?: Yes Distance: 400 Walk 10 feet (QC): 6 Walk 50 ft with 2 Turns(QC): 6 Walk 150 ft (QC): 6 Gait Persons Needed: 1 Gait Assistive Device: FWW Treatments Gait training Assessment Current Status: Fair Progress Patient demonstrates mild decline in gait distance from last visit, but notes she is more tired from having her bath. Patient ambulates with fair overall gait pattern and good control of the FWW. Patient in chair post treatment with all needs met, nursing notified, call light in reach. PT Short Term Goals Short Term Goals Time Frame: Oct 25, 2020 Roll Left & Right: 6 Sit to lyin Lying to sitting on side of be: 6 Sit to stand: 6 Chair/uab-zu-zddhj transfer: 6 Toilet transfer: 6 Walk 10 feet: 6 Walk 50 feet with two turns: 6 Walk 150 feet: 6 PT Plan Treatment/Plan Treatment Plan: Continue Plan of Care Treatment Plan: Education, Functional Activity Joselin, Functional Strength, Gait, Safety, Therapeutic Exercise, Transfers Treatment Duration: Oct 25, 2020 Frequency: 2 times per week Estimated Hrs Per Day: .25 hour per day Patient and/or Family Agrees t: Yes Time/GCodes Time In: 1325 Time Out: 1340 Total Billed Treatment Time: 15 Total Billed Treatment Visit, Gait ALISA GUERRERO PT Nov 02, 2020 13:43
[2020-11-02 16:00] VITALS: BP 129/76
[2020-11-02] MEDS: ENOXAPARIN 40 MG/0.4 ML (LOVENOX) SYR SC SCH (18:27)
[2020-11-02] MEDS: DONEPEZIL 5 MG (ARICEPT) TAB PO SCH (21:04)
[2020-11-02 23:41] VITALS: BP 135/60
[2020-11-03 06:42] LABS: BASOPHILS % (AUTO) 0 % (0-10); EOSINOPHILS # (AUTO) 0.1 10^3/uL (0.0-0.3); EOSINOPHILS % (AUTO) 1 % (0-10); HEMATOCRIT 30 % (35-52); HEMOGLOBIN 9.4 g/dL (11.5-16.0); LYMPHOCYTES # (AUTO) 1.8 10^3/uL (1.0-4.0); LYMPHOCYTES % (AUTO) 17 % (12-44); MEAN CORPUSCULAR HEMOGLOBIN 29 pg (25-34); MEAN CORPUSCULAR HGB CONC 32 g/dL (32-36); MEAN CORPUSCULAR VOLUME 91 fL (80-99); MEAN PLATELET VOLUME 10.2 fL (9.0-12.2); MONOCYTES # (AUTO) 1.1 10^3/uL (0.0-1.0); MONOCYTES % (AUTO) 11 % (0-12); NEUTROPHILS # (AUTO) 7.3 10^3/uL (1.8-7.8); NEUTROPHILS % (AUTO) 69 % (42-75); PLATELET COUNT 420 10^3/uL (130-400); WHITE BLOOD COUNT 10.6 10^3/uL (4.3-11.0)
--- NOTE | 2020-11-03 06:52 | Progress Note - Hospitalist ---
Subjective HPI/CC On Admission Date Seen by Provider: Nov 03, 2020 Time Seen by Provider: 11:00 Pt is a 80yoCF with a PMH of HTN who presented to the ER due to fever and fatigue. She is somewhat confused and cannot recall all of her medical history. Her siser helps to fill in the gaps. She reports she has been quite fatigued for a week and had diarrhea. Her sister visited her yesterday and found her to bee quite fatigued and covered in blankets chilling. She checked her temperature and it was 102 so she brought her in for evaluation. She was found to have a leukocytosis with fever and tachycardia on arrival but no source was identified. She was admitted for sepsis of unkown origin. This morning she reports feeling somewhat better though still nto back to normal. Subjective/Events-last exam Patient dramatically improved Cough is improved Family at the bedside Check meds and labs Walking around to the bathroom on her own Review of Systems General: Fatigue, Malaise Objective Exam Vital Signs Vital Signs Date Time Temp Pulse Resp B/P (MAP) Pulse Ox O2 Delivery O2 Flow Rate FiO2 11/04/20 00:00 36.7 86 18 140/63 (88) 96 Room Air 10/29/20 08:00 0.00 Capillary Refill : Less Than 3 Seconds General Appearance: No Apparent Distress, WD/WN, Chronically ill Respiratory: Lungs Clear, Normal Breath Sounds Cardiovascular: Regular Rate, Rhythm Neurologic/Psychiatric: Alert, Oriented x3, Depressed Affect, Disoriented Results/Procedures Lab Laboratory Tests 11/03/20 06:30 Patient resulted labs reviewed. Imaging: Reviewed Imaging Report Assessment/Plan Assessment and Plan Assess & Plan/Chief Complaint Assessment: Sepsis Liver abscess status post incision and drainage and drain placed by interventional radiology Severe vitamin B12 deficiency Iron deficiency history Dementia Hypertension Hypokalemia Severe diarrhea placed on Questran Cough Plan: IV antibiotics Vitamin B12 injection 10/28/2020: Robitussin Questran 3 times daily Advance diet PT and OT 10/29/2020: Review CT scan Maintain drain Antibiotics maintained 10/30/2020: Slow recovery Monitor closely Improved nutrition intake Continue Questran 10/31/2020: Continue Questran Swing bed to [facility] submitted to insurance 11/01/2020: Supportive care Monitor closely IV Lasix PICC line IV antibiotics 11/02/2020: Continue supportive care Rocephin IV Lasix as needed 11/03/2020: Supportive care May need assisted living for short time to transition home KAREN TERAN DO Nov 03, 2020 06:52
[2020-11-03 06:54] LABS: ALBUMIN 2.7 GM/DL (3.2-4.5); POTASSIUM 4.5 MMOL/L (3.6-5.0)
[2020-11-03 06:55] LABS: CALCIUM 8.4 MG/DL (8.5-10.1)
[2020-11-03 06:59] LABS: BILIRUBIN,TOTAL 0.6 MG/DL (0.1-1.0)
[2020-11-03 07:00] LABS: CREATININE SERUM 0.62 MG/DL (0.60-1.30)
[2020-11-03 08:39] VITALS: BP 162/95
[2020-11-03] MEDS: lisINopril 10 MG (PRINIVIL) TABLET PO SCH (09:13)
[2020-11-03] MEDS: guaiFENesin (MUCINEX) 600 MG TAB PO SCH ×2 (09:13→20:44)
[2020-11-03] MEDS: LACTOBACILLUS ACIDOPHILUS (PROBIOTIC) CAPSULE PO SCH ×3 (09:13→16:39)
[2020-11-03] MEDS: CHOLESTYRAMINE 4 GM (QUESTRAN LITE, PREVALITE) PKT PO SCH ×3 (09:13→20:44)
[2020-11-03] MEDS: KCL 20 MEQ TAB (K-DUR) PO SCH ×2 (09:13→20:44)
[2020-11-03] MEDS: cefTRIAXone 2,000 MG in WATER (STERILE) FOR INJECTION 20 ML IV SCH (09:14)
[2020-11-03 15:30] VITALS: BP 136/78
[2020-11-03] MEDS: ENOXAPARIN 40 MG/0.4 ML (LOVENOX) SYR SC SCH (16:39)
[2020-11-03] MEDS: DONEPEZIL 5 MG (ARICEPT) TAB PO SCH (20:44)
[2020-11-04] VITALS: BP 140/63
[2020-11-04 05:53] LABS: BASOPHILS % (AUTO) 0 % (0-10); EOSINOPHILS # (AUTO) 0.1 10^3/uL (0.0-0.3); EOSINOPHILS % (AUTO) 1 % (0-10); HEMATOCRIT 29 % (35-52); HEMOGLOBIN 9.4 g/dL (11.5-16.0); LYMPHOCYTES # (AUTO) 1.9 10^3/uL (1.0-4.0); LYMPHOCYTES % (AUTO) 19 % (12-44); MEAN CORPUSCULAR HEMOGLOBIN 29 pg (25-34); MEAN CORPUSCULAR HGB CONC 32 g/dL (32-36); MEAN CORPUSCULAR VOLUME 91 fL (80-99); MEAN PLATELET VOLUME 9.8 fL (9.0-12.2); MONOCYTES # (AUTO) 1.1 10^3/uL (0.0-1.0); MONOCYTES % (AUTO) 11 % (0-12); NEUTROPHILS # (AUTO) 6.9 10^3/uL (1.8-7.8); NEUTROPHILS % (AUTO) 67 % (42-75); PLATELET COUNT 448 10^3/uL (130-400); WHITE BLOOD COUNT 10.3 10^3/uL (4.3-11.0)
[2020-11-04 06:12] LABS: ALBUMIN 2.7 GM/DL (3.2-4.5); POTASSIUM 4.2 MMOL/L (3.6-5.0)
[2020-11-04 06:13] LABS: CALCIUM 8.4 MG/DL (8.5-10.1)
[2020-11-04 06:15] LABS: TOTAL PROTEIN 6.1 GM/DL (6.4-8.2)
[2020-11-04 06:17] LABS: BILIRUBIN,TOTAL 0.5 MG/DL (0.1-1.0)
--- NOTE | 2020-11-04 06:17 | Progress Note - Hospitalist ---
Subjective HPI/CC On Admission Date Seen by Provider: Nov 04, 2020 Time Seen by Provider: 10:00 Pt is a 80yoCF with a PMH of HTN who presented to the ER due to fever and fatigue. She is somewhat confused and cannot recall all of her medical history. Her siser helps to fill in the gaps. She reports she has been quite fatigued for a week and had diarrhea. Her sister visited her yesterday and found her to bee quite fatigued and covered in blankets chilling. She checked her temperature and it was 102 so she brought her in for evaluation. She was found to have a leukocytosis with fever and tachycardia on arrival but no source was identified. She was admitted for sepsis of unkown origin. This morning she reports feeling somewhat better though still nto back to normal. Subjective/Events-last exam Pt doing really well today Participating in therapy No pain is reported Cough is improved No significant concerns Family at the bedside Awaiting possible assisted living DC Review of Systems General: Fatigue, Malaise Objective Exam Vital Signs Vital Signs Date Time Temp Pulse Resp B/P (MAP) Pulse Ox O2 Delivery O2 Flow Rate FiO2 11/05/20 00:15 37.0 86 24 128/74 (92) 96 Room Air Capillary Refill : Less Than 3 Seconds General Appearance: No Apparent Distress, WD/WN, Chronically ill Respiratory: Lungs Clear, Normal Breath Sounds Cardiovascular: Regular Rate, Rhythm Neurologic/Psychiatric: Alert, Oriented x3, Depressed Affect Results/Procedures Lab Laboratory Tests 11/04/20 05:45 Patient resulted labs reviewed. Imaging: Reviewed Imaging Report Assessment/Plan Assessment and Plan Assess & Plan/Chief Complaint Assessment: Sepsis Liver abscess status post incision and drainage and drain placed by interventional radiology Severe vitamin B12 deficiency Iron deficiency history Dementia Hypertension Hypokalemia Severe diarrhea placed on Questran Cough Plan: IV antibiotics Vitamin B12 injection 10/28/2020: Robitussin Questran 3 times daily Advance diet PT and OT 10/29/2020: Review CT scan Maintain drain Antibiotics maintained 10/30/2020: Slow recovery Monitor closely Improved nutrition intake Continue Questran 10/31/2020: Continue Questran Swing bed to [facility] submitted to insurance 11/01/2020: Supportive care Monitor closely IV Lasix PICC line IV antibiotics 11/02/2020: Continue supportive care Rocephin IV Lasix as needed 11/03/2020: Supportive care May need assisted living for short time to transition home 11/04/2020: Assisted living on Wednesday Monitor closely DC KAREN Sanford DO Nov 04, 2020 06:17
[2020-11-04 06:18] LABS: CREATININE SERUM 0.59 MG/DL (0.60-1.30)
[2020-11-04 07:15] VITALS: BP 147/69
[2020-11-04] MEDS: LACTOBACILLUS ACIDOPHILUS (PROBIOTIC) CAPSULE PO SCH ×3 (09:04→17:53)
[2020-11-04] MEDS: guaiFENesin (MUCINEX) 600 MG TAB PO SCH ×2 (09:04→21:31)
[2020-11-04] MEDS: lisINopril 10 MG (PRINIVIL) TABLET PO SCH (09:04)
[2020-11-04] MEDS: cefTRIAXone 2,000 MG in WATER (STERILE) FOR INJECTION 20 ML IV SCH (09:05)
[2020-11-04] MEDS: CHOLESTYRAMINE 4 GM (QUESTRAN LITE, PREVALITE) PKT PO SCH ×3 (09:05→21:32)
[2020-11-04] MEDS: KCL 20 MEQ TAB (K-DUR) PO SCH ×2 (09:05→21:32)
--- NOTE | 2020-11-04 10:40 | Physical Therapy Daily Note ---
PT Daily Note-Current Subjective Patient in restroom pre tx, agrees to PT when she is done. Patient has no complaints of pain. Appearance Patient in recliner post tx with nurse call, phone, tray, all needs met. Family in room. Mental Status Patient Orientation: Person, Place, Situation Transfers SCALE: Activities may be completed with or without assistive devices. 1-Avythtnuqo-tecnpdt completes the activity by him/herself with no assistance from a helper. 5-Set-up or Clean-up Assistance-helper sets up or cleans up; patient completes activity. [place] assists only prior to or following the activity. 4-Supervision or Touching Assistance-helper provides verbal cues and/or touching/steadying and/or contact guard assistance as patient completes activity. Assistance may be provided throughout the activity or intermittently. 3-Partial/Moderate Assistance-helper does LESS THAN HALF the effort. [place] lifts, holds or supports trunk or limbs, but provides less than half the effort. 2-Substantial/Maximal Assistance-helper does MORE THAN HALF the effort. [place] lifts or holds trunk or limbs and provides more than half the effort. 3-Fkvmgrrjs-zrtvzu does ALL the effort. Patient does none of the effort to complete the activity. Or, the assistance of 2 or more helpers is required for the patient to complete the activity. If activity was not attempted, code reason: 7-Patient Refused. 9-Not Applicable-not attempted and the patient did not perform the activity before the current illness, exacerbation or injury. 10-Not Attempted due to Environmental Limitations-(lack of equipment, weather restraints, etc.). 88-Not Attempted due to Medical Conditions or Safety Concerns. Sit to Stand (QC): 6 Chair/Sfk-pv-Iytuj Xfer(QC): 6 Gait Training Distance: 400' Walk 10 feet (QC): 6 Walk 50 ft with 2 Turns(QC): 6 Walk 150 ft (QC): 6 Gait Assistive Device: FWW slow but steady ambulation, no complaints of lightheadedness or dizziness. Treatments transfers, ambulation Assessment Current Status: Fair Progress Patient is now independent with bed mobility, transfers, and ambulation. She will be discharged from PT at this time and patient instructed to ambulate in the hallway on her own several times a day. PT Short Term Goals Short Term Goals Time Frame: Oct 25, 2020 Roll Left & Right: 6 Sit to lyin Lying to sitting on side of be: 6 Sit to stand: 6 Chair/gnh-fd-owyyc transfer: 6 Toilet transfer: 6 Walk 10 feet: 6 Walk 50 feet with two turns: 6 Walk 150 feet: 6 PT Plan Problem List Problem List: Activity Tolerance Treatment/Plan Treatment Plan: Discontinue PT, goals met Treatment Plan: Education, Functional Activity [place], Functional Strength, Gait, Safety, Therapeutic Exercise, Transfers Treatment Duration: Oct 25, 2020 Frequency: 2 times per week Estimated Hrs Per Day: .25 hour per day Patient and/or Family Agrees t: Yes Safety Risks/Education Patient Education: Gait Training, Transfer Techniques, Correct Positioning, Safety Issues Teaching Recipient: Patient Teaching Methods: Demonstration, Discussion Response to Teaching: Verbalize Understanding Discharge Recommendations Plan DC Therapy Discharge Recommendati: Home & Family Time/GCodes Time In: 1000 Time Out: 1010 Total Billed Treatment Time: 10 Total Billed Treatment 1 visit GT 10' ASIA BHAKTA PT Nov 04, 2020 10:40
--- NOTE | 2020-11-04 11:37 | Occupational Ther Daily Note ---
OT Current Status-Daily Note Subjective Pt alert, sitting in recliner. Family present in room. No c/o pain only fatigue. Mental Status/Objective Patient Orientation: Person, Place, Time, Situation Attachments: IV (midline) ADL-Treatment Therapy Code Descriptions/Definitions Functional [place] Measure: 0=Not Assessed/NA 4=Minimal Assistance 1=Total Assistance 5=Supervision or Setup 2=Maximal Assistance 6=Modified [place] 3=Moderate Assistance 7=Complete IndependenceSCALE: Activities may be completed with or without assistive devices. 7-Lrddwspbem-nnaxfij completes the activity by him/herself with no assistance from a helper. 5-Set-up or Clean-up Assistance-helper sets up or cleans up; patient completes activity. [place] assists only prior to or following the activity. 4-Supervision or Touching Assistance-helper provides verbal cues and/or touching/steadying and/or contact guard assistance as patient completes activity. Assistance may be provided throughout the activity or intermittently. 3-Partial/Moderate Assistance-helper does LESS THAN HALF the effort. [place] lifts, holds or supports trunk or limbs, but provides less than half the effort. 2-Substantial/Maximal Assistance-helper does MORE THAN HALF the effort. [place] lifts or holds trunk or limbs and provides more than half the effort. 7-Vfsqphsdv-qkvipz does ALL the effort. Patient does none of the effort to complete the activity. Or, the assistance of 2 or more helpers is required for the patient to complete the activity. If activity was not attempted, code reason: 7-Patient Refused. 9-Not Applicable-not attempted and the patient did not perform the activity before the current illness, exacerbation or injury. 10-Not Attempted due to Environmental Limitations-(lack of equipment, weather restraints, etc.). 88-Not Attempted due to Medical Conditions or Safety Concerns. Other Treatment Pt and family stated that pt had just finished a shower. Per pt and family report, pt was able to complete shower by self using hand held shower, grabbars and shower bench. Pt reported that she had also complete oral care by herself. Pt agrees to complete B UE exercises. Skilled instruction for technique and positioning during B UE exercises. 3 exercises-horizontal shldr abd/add, shldr abd/add, shldr int/ext rotation 1 set 15 reps. Pt completed with verbal cues and minimal gestural cues for technique. After therapy, pt sitting in recliner with call light/phone in reach. All needs met. OT Pig Breeder Goals Senior Living Goals Time Frame: Nov 06, 2020 Eating (QC): 6 Oral Hygiene (QC): 6 Toileting Hygiene (QC): 6 Shower/Bathe Self (QC): 6 Upper Body Dressing (QC): 6 Lower Body Dressing (QC): 6 On/Off Footwear (QC): 6 Additional Goals: 1-Demonstrate ADL Tasks, 2-Verbalize Understanding, 3- ImproveStrength/[place] 1=Demonstrate adherence to instructed precautions during ADL tasks. 2=Patient will verbalize/demonstrate understanding of assistive devices/modifications for ADL. 3=Patient will improve strength/tolerance for activity to enable patient to perform ADL's. OT Education/Plan Problem List/Assessment Assessment: Decreased Activ Tolerance, Decreased UE Strength Discharge Recommendations Plan/Recommendations: Continue POC Treatment Plan/Plan of Care Patient would benefit from OT for education, treatment and training to promote independence in ADL's, mobility, safety and/or upper extremity function for A DL's. Plan of Care: ADL Retraining, Functional Mobility, UE Funct Exercise/Act Treatment Duration: Nov 06, 2020 Frequency: 5 times per week Estimated Hrs Per Day: .25 hour per day Rehab Potential: Fair Time/GCodes Start Time: 11:12 Stop Time: 11:30 Total Time Billed (hr/min): 18 Billed Treatment Time 1 visit-EX 1 (18 min) EVELINE العلي Nov 04, 2020 11:37
[2020-11-04 16:00] VITALS: BP 134/61
[2020-11-04] MEDS: ENOXAPARIN 40 MG/0.4 ML (LOVENOX) SYR SC SCH (17:53)
[2020-11-04] MEDS: DONEPEZIL 5 MG (ARICEPT) TAB PO SCH (21:32)
[2020-11-05 00:15] VITALS: BP 128/74
--- NOTE | 2020-11-05 05:28 | Progress Note - Hospitalist ---
Subjective HPI/CC On Admission Date Seen by Provider: Nov 05, 2020 Time Seen by Provider: 10:00 Pt is a 80yoCF with a PMH of HTN who presented to the ER due to fever and fatigue. She is somewhat confused and cannot recall all of her medical history. Her siser helps to fill in the gaps. She reports she has been quite fatigued for a week and had diarrhea. Her sister visited her yesterday and found her to bee quite fatigued and covered in blankets chilling. She checked her temperature and it was 102 so she brought her in for evaluation. She was found to have a leukocytosis with fever and tachycardia on arrival but no source was identified. She was admitted for sepsis of unkown origin. This morning she reports feeling somewhat better though still nto back to normal. Subjective/Events-last exam Pt doing really well today Ready to go to transition room, assisted living skilled combination at [facility] for one week and then home Off antibiotics Overall doing very well Review of Systems General: Fatigue, Malaise Objective Exam Vital Signs Vital Signs Date Time Temp Pulse Resp B/P (MAP) Pulse Ox O2 Delivery O2 Flow Rate FiO2 11/05/20 20:01 Room Air 11/05/20 17:16 37.2 88 18 143/68 (93) 95 Capillary Refill : Less Than 3 Seconds General Appearance: No Apparent Distress, WD/WN, Chronically ill Respiratory: Lungs Clear, Normal Breath Sounds Cardiovascular: Regular Rate, Rhythm Neurologic/Psychiatric: Alert, Oriented x3 Results/Procedures Lab Patient resulted labs reviewed. Imaging: Reviewed Imaging Report Assessment/Plan Assessment and Plan Assess & Plan/Chief Complaint Assessment: Sepsis Liver abscess status post incision and drainage and drain placed by interventional radiology Severe vitamin B12 deficiency Iron deficiency history Dementia Hypertension Hypokalemia Severe diarrhea placed on Questran Cough Plan: IV antibiotics Vitamin B12 injection 10/28/2020: Robitussin Questran 3 times daily Advance diet PT and OT 10/29/2020: Review CT scan Maintain drain Antibiotics maintained 10/30/2020: Slow recovery Monitor closely Improved nutrition intake Continue Questran 10/31/2020: Continue Questran Swing bed to Mike submitted to insurance 11/01/2020: Supportive care Monitor closely IV Lasix PICC line IV antibiotics 11/02/2020: Continue supportive care Rocephin IV Lasix as needed 11/03/2020: Supportive care May need assisted living for short time to transition home 11/04/2020: Assisted living on Wednesday Monitor closely BART Hirsch 11/05/2020: Discharge tomorrow to assisted living KAREN TERAN DO Nov 05, 2020 05:28
[2020-11-05 07:24] VITALS: BP 140/58
[2020-11-05] MEDS: LACTOBACILLUS ACIDOPHILUS (PROBIOTIC) CAPSULE PO SCH ×3 (08:35→17:04)
[2020-11-05] MEDS: KCL 20 MEQ TAB (K-DUR) PO SCH ×2 (08:35→20:21)
[2020-11-05] MEDS: lisINopril 10 MG (PRINIVIL) TABLET PO SCH (08:36)
[2020-11-05] MEDS: guaiFENesin (MUCINEX) 600 MG TAB PO SCH ×2 (08:36→20:21)
[2020-11-05] MEDS: CHOLESTYRAMINE 4 GM (QUESTRAN LITE, PREVALITE) PKT PO SCH ×3 (09:45→20:21)
--- NOTE | 2020-11-05 10:05 | Physical Therapy Daily Note ---
PT Daily Note-Current Subjective Patient agrees to PT. Mental Status Patient Orientation: Normal For Age Transfers SCALE: Activities may be completed with or without assistive devices. 9-Oxuaovgpxx-xavsqpx completes the activity by him/herself with no assistance from a helper. 5-Set-up or Clean-up Assistance-helper sets up or cleans up; patient completes activity. [place] assists only prior to or following the activity. 4-Supervision or Touching Assistance-helper provides verbal cues and/or touching/steadying and/or contact guard assistance as patient completes activity. Assistance may be provided throughout the activity or intermittently. 3-Partial/Moderate Assistance-helper does LESS THAN HALF the effort. [place] lifts, holds or supports trunk or limbs, but provides less than half the effort. 2-Substantial/Maximal Assistance-helper does MORE THAN HALF the effort. [place] lifts or holds trunk or limbs and provides more than half the effort. 1-Uqsneagzq-rzxywb does ALL the effort. Patient does none of the effort to complete the activity. Or, the assistance of 2 or more helpers is required for the patient to complete the activity. If activity was not attempted, code reason: 7-Patient Refused. 9-Not Applicable-not attempted and the patient did not perform the activity befo re the current illness, exacerbation or injury. 10-Not Attempted due to Environmental Limitations-(lack of equipment, weather re straints, etc.). 88-Not Attempted due to Medical Conditions or Safety Concerns. Roll Left & Right (QC): 6 Sit to Lying (QC): 6 Lying to Sitting/Side of Bed(Q: 6 Sit to Stand (QC): 6 Gait Training Does the Patient Walk?: Yes Distance: 500' Walk 10 feet (QC): 6 Walk 50 ft with 2 Turns(QC): 6 Walk 150 ft (QC): 6 Gait Assistive Device: FWW slow, steady functional gait sequence Assessment Patient returned to bed. Plan dismissal in a.m. PT Short Term Goals Short Term Goals Time Frame: Oct 25, 2020 Roll Left & Right: 6 Sit to lyin Lying to sitting on side of be: 6 Sit to stand: 6 Chair/jto-wi-osges transfer: 6 Toilet transfer: 6 Walk 10 feet: 6 Walk 50 feet with two turns: 6 Walk 150 feet: 6 PT Plan Treatment/Plan Treatment Plan: Continue Plan of Care Treatment Plan: Education, Functional Activity Joselin, Functional Strength, Gait, Safety, Therapeutic Exercise, Transfers Treatment Duration: Oct 25, 2020 Frequency: 2 times per week Estimated Hrs Per Day: .25 hour per day Patient and/or Family Agrees t: Yes Time/GCodes Time In: 920 Time Out: 933 Total Billed Treatment Time: 13 Total Billed Treatment 1 visit FA 13 min AYE HOLLY PT Nov 05, 2020 10:05
--- NOTE | 2020-11-05 10:51 | Progress Note - Hospitalist ---
BRADLEY SERRANO MED STUDENT 11/05/20 1051: Subjective HPI/CC On Admission Date Seen by Provider: Nov 05, 2020 Time Seen by Provider: 08:30 Pt is a 80yoCF with a PMH of HTN who presented to the ER due to fever and fatigue. She is somewhat confused and cannot recall all of her medical history. Her siser helps to fill in the gaps. She reports she has been quite fatigued for a week and had diarrhea. Her sister visited her yesterday and found her to bee quite fatigued and covered in blankets chilling. She checked her temperature and it was 102 so she brought her in for evaluation. She was found to have a leukocytosis with fever and tachycardia on arrival but no source was identified. She was admitted for sepsis of unkown origin. This morning she reports feeling somewhat better though still nto back to normal. Subjective/Events-last exam Doing well, no complaints. Objective Exam Vital Signs Vital Signs Date Time Temp Pulse Resp B/P (MAP) Pulse Ox O2 Delivery O2 Flow Rate FiO2 11/05/20 08:00 Room Air 11/05/20 07:24 36.6 94 20 140/58 (85) 94 Capillary Refill : Less Than 3 Seconds General Appearance: No Apparent Distress, WD/WN HEENT: PERRL/EOMI Respiratory: Lungs Clear, Normal Breath Sounds, No Accessory Muscle Use, No Respiratory Distress Cardiovascular: Regular Rate, Rhythm, No Edema Gastrointestinal: Non Tender, Soft Extremity: Normal Inspection, No Calf Tenderness, No Pedal Edema Neurologic/Psychiatric: Alert, Oriented x3, No Motor/Sensory Deficits, Normal Mood/Affect Skin: Normal Color, Warm/Dry Results/Procedures Lab Patient resulted labs reviewed. Imaging: Reviewed Imaging Report Assessment/Plan Assessment and Plan Assess & Plan/Chief Complaint sepsis-resolved liver abscess-resolved hypertension dementia cough Mucinex diarrhea Questran DC to [facility] tomorrow. MARY CARMEN TERAN DO 11/05/200: Supervisory-Addendum Brief Verification & Attestation Participated in pt care: history, MDM, physical Personally performed: exam, history, MDM, supervision of care Care discussed with: Medical Student Procedures: n/a Results interpretation: Verified all documentation Verification and Attestation of Medical Student E/M Service A medical student performed and documented this service in my presence. I reviewed and verified all information documented by the medical student and made modifications to such information, when appropriate. I personally performed the physical exam and medical decision making. Mary Carmen Teran, Nov 05, 2020,21:50 BRADLEY SERRANO MED STUDENT Nov 05, 2020 10:51 MARY CARMEN TERAN DO Nov 05, 2020 21:50
--- NOTE | 2020-11-05 11:11 | Occupational Ther Daily Note ---
OT Current Status-Daily Note Subjective Pt alert, standing in room with family. Pt agrees to therapy. No c/o pain. Mental Status/Objective Patient Orientation: Person, Place, Time, Situation ADL-Treatment Therapy Code Descriptions/Definitions Functional [place] Measure: 0=Not Assessed/NA 4=Minimal Assistance 1=Total Assistance 5=Supervision or Setup 2=Maximal Assistance 6=Modified [place] 3=Moderate Assistance 7=Complete IndependenceSCALE: Activities may be completed with or without assistive devices. 7-Inqlsztdci-zawxocs completes the activity by him/herself with no assistance from a helper. 5-Set-up or Clean-up Assistance-helper sets up or cleans up; patient completes activity. [place] assists only prior to or following the activity. 4-Supervision or Touching Assistance-helper provides verbal cues and/or touching/steadying and/or contact guard assistance as patient completes activity. Assistance may be provided throughout the activity or intermittently. 3-Partial/Moderate Assistance-helper does LESS THAN HALF the effort. [place] lifts, holds or supports trunk or limbs, but provides less than half the effort. 2-Substantial/Maximal Assistance-helper does MORE THAN HALF the effort. [place] lifts or holds trunk or limbs and provides more than half the effort. 7-Scsofkuwl-zmtsaw does ALL the effort. Patient does none of the effort to complete the activity. Or, the assistance of 2 or more helpers is required for the patient to complete the activity. If activity was not attempted, code reason: 7-Patient Refused. 9-Not Applicable-not attempted and the patient did not perform the activity before the current illness, exacerbation or injury. 10-Not Attempted due to Environmental Limitations-(lack of equipment, weather restraints, etc.). 88-Not Attempted due to Medical Conditions or Safety Concerns. Other Treatment Pt declines toileting or ADLs. Pt up ad porfirio in room. Pt given medium resistance theraband and HEP with instructions for 1 set 10 reps 3x's a day and increasing to 2-3 sets 10 reps. Pt requires skilled instruction and modifications to complete exercises with correct technique and position. 6 exercises 1 set 10 reps completed. Pt has difficulty with transitioning exercises when using one arm and moving to other arm completing the same exercise. Pt completed 2 exercises in standing without LOB. After therapy, pt sitting in recliner with call light/phone in reach. Nrsg in room. All needs met in room. OT Donor Relations Associate Goals Custodial Goals Time Frame: Nov 06, 2020 Eating (QC): 6 Oral Hygiene (QC): 6 Toileting Hygiene (QC): 6 Shower/Bathe Self (QC): 6 Upper Body Dressing (QC): 6 Lower Body Dressing (QC): 6 On/Off Footwear (QC): 6 Additional Goals: 1-Demonstrate ADL Tasks, 2-Verbalize Understanding, 3- ImproveStrength/Joselin 1=Demonstrate adherence to instructed precautions during ADL tasks. 2=Patient will verbalize/demonstrate understanding of assistive devices/modifications for ADL. 3=Patient will improve strength/tolerance for activity to enable patient to perform ADL's. OT Education/Plan Problem List/Assessment Assessment: Decreased Activ Tolerance, Decreased UE Strength Discharge Recommendations Plan/Recommendations: Continue POC Treatment Plan/Plan of Care Patient would benefit from OT for education, treatment and training to promote independence in ADL's, mobility, safety and/or upper extremity function for ADL's. Plan of Care: ADL Retraining, Functional Mobility, UE Funct Exercise/Act Treatment Duration: Nov 06, 2020 Frequency: 5 times per week Estimated Hrs Per Day: .25 hour per day Rehab Potential: Fair Time/GCodes Start Time: 10:37 Stop Time: 11:00 Total Time Billed (hr/min): 23 Billed Treatment Time 1 visit-EX 2 (23 min) EVELINE العلي Nov 05, 2020 11:11
[2020-11-05 17:00] VITALS: BP 143/68
[2020-11-05] MEDS: ENOXAPARIN 40 MG/0.4 ML (LOVENOX) SYR SC SCH (17:04)
[2020-11-05 17:16] VITALS: BP 143/68
[2020-11-05] MEDS: DONEPEZIL 5 MG (ARICEPT) TAB PO SCH (20:21)
[2020-11-06 00:40] VITALS: BP 157/66
[2020-11-06 05:49] LABS: BASOPHILS # (AUTO) 0.1 10^3/uL (0.0-0.1); BASOPHILS % (AUTO) 1 % (0-10); EOSINOPHILS # (AUTO) 0.1 10^3/uL (0.0-0.3); EOSINOPHILS % (AUTO) 1 % (0-10); HEMATOCRIT 29 % (35-52); HEMOGLOBIN 9.2 g/dL (11.5-16.0); LYMPHOCYTES # (AUTO) 1.8 10^3/uL (1.0-4.0); LYMPHOCYTES % (AUTO) 23 % (12-44); MEAN CORPUSCULAR HEMOGLOBIN 29 pg (25-34); MEAN CORPUSCULAR HGB CONC 32 g/dL (32-36); MEAN CORPUSCULAR VOLUME 92 fL (80-99); MEAN PLATELET VOLUME 9.5 fL (9.0-12.2); MONOCYTES # (AUTO) 0.8 10^3/uL (0.0-1.0); MONOCYTES % (AUTO) 11 % (0-12); NEUTROPHILS # (AUTO) 4.9 10^3/uL (1.8-7.8); NEUTROPHILS % (AUTO) 63 % (42-75); PLATELET COUNT 473 10^3/uL (130-400); WHITE BLOOD COUNT 7.8 10^3/uL (4.3-11.0)
[2020-11-06 05:58] LABS: ALBUMIN 2.8 GM/DL (3.2-4.5); POTASSIUM 4.3 MMOL/L (3.6-5.0)
[2020-11-06 06:00] LABS: CALCIUM 8.7 MG/DL (8.5-10.1)
[2020-11-06 06:01] LABS: TOTAL PROTEIN 6.2 GM/DL (6.4-8.2)
[2020-11-06 06:03] LABS: BILIRUBIN,TOTAL 0.5 MG/DL (0.1-1.0)
[2020-11-06 06:04] LABS: CREATININE SERUM 0.61 MG/DL (0.60-1.30)
[2020-11-06 07:27] VITALS: BP 153/71
[2020-11-06] MEDS: lisINopril 10 MG (PRINIVIL) TABLET PO SCH (09:16)
[2020-11-06] MEDS: LACTOBACILLUS ACIDOPHILUS (PROBIOTIC) CAPSULE PO SCH (09:16)
[2020-11-06] MEDS: KCL 20 MEQ TAB (K-DUR) PO SCH (09:16)
[2020-11-06] MEDS: guaiFENesin (MUCINEX) 600 MG TAB PO SCH (09:16)
[2020-11-06] MEDS ORDERED: ENOX40DI8 SC ×2 (10:39→14:44)
[2020-11-06] MEDS ORDERED: GUAI600T43 PO ×2 (10:39→14:44)
[2020-11-06] MEDS ORDERED: LACT1CAP7 PO ×2 (10:39→14:44)
[2020-11-06] MEDS ORDERED: CHOL4PAC3 PO ×2 (10:39→14:44)
--- NOTE | 2020-11-06 10:40 | Discharge Summary ---
Discharge Summary Hospital Course Was the Problem List Reviewed?: Yes Problems/Dx: (1) Sepsis, unspecified organism Status: Acute Qualifiers: (2) Liver abscess Status: Acute (3) HTN (hypertension) Status: Chronic Qualifiers: Qualified Codes: I10 - Essential (primary) hypertension (4) JOSE (acute kidney injury) Status: Resolved (5) Dementia Status: Chronic Hospital Course Date of Admission: Oct 22, 2020 at 16:16 Admission Diagnosis : Family Physician/Provider: Mary Carmen Conte DO Date of Discharge: 11/06/20 Discharge Diagnosis: Sepsis, liver abscess, dementia, vitamin B12 deficiency, iron deficiency Hospital Course: Hospital Course: Pt had an uneventful hospital course for 16 days after a fever of unknown origin, covid negative after being vaccinated. She ultimately complained of right upper quadrant pain, was found to have a liver abcess s/p CT guided drain placement and IV antibiotics of Rocephin and Flagyl was maintained. All cultures were sterilized at that time with antibiotics so she completed a full 12 days of antibiotics and was good for discharge for assisted living to a transition room. Labs and Pending Lab Test: Laboratory Tests 11/06/20 05:40: White Blood Count 7.8, Red Blood Count 3.14L, Hemoglobin 9.2L, Hematocrit 29L, Mean Corpuscular Volume 92, Mean Corpuscular Hemoglobin 29, Mean Corpuscular Hemoglobin Concent 32, Red Cell Distribution Width 14.4, Platelet Count 473H, Mean Platelet Volume 9.5, Immature Granulocyte % (Auto) 1, Neutrophils (%) (Auto) 63, Lymphocytes (%) (Auto) 23, Monocytes (%) (Auto) 11, Eosinophils (%) (Auto) 1, Basophils (%) (Auto) 1, Neutrophils # (Auto) 4.9, Lymphocytes # (Auto) 1.8, Monocytes # (Auto) 0.8, Eosinophils # (Auto) 0.1, Basophils # (Auto) 0.1, Immature Granulocyte # (Auto) 0.1, Sodium Level 142, Potassium Level 4.3, Chloride Level 108H, Carbon Dioxide Level 24, Anion Gap 10, Blood Urea Nitrogen 5L, Creatinine 0.61, Estimat Glomerular Filtration Rate 95, BUN/Creatinine Ratio 8, Glucose Level 96, Calcium Level 8.7, Corrected Calcium 9.7, Total Bilirubin 0.5, Aspartate Amino Transf (AST/SGOT) 14, Alanine Aminotransferase (ALT/SGPT) 12, Alkaline Phosphatase 90, Total Protein 6.2L, Albumin 2.8L Microbiology 10/25/20 Gram Stain - Final, Complete 10/25/20 Anaerobic Culture - Final, Complete No growth 10/25/20 Surgical Culture - Final, Complete No growth 10/22/20 Blood Culture - Final, Complete No growth 10/22/20 Urine Culture - Final, Complete Mixed Bacterial Alana Strep, Beta Hemolytic Group B Home Meds Active Acidophilus-Pectin Capsule (Lactobacillus Acidophilus/Pect) 1 Each Capsule 2 Each PO TIDWM 7 Days Mucinex (Guaifenesin) 600 Mg Tab.er.12h 600 Mg PO BID 7 Days Prevalite Packet (Cholestyramine/Aspartame) 4 Gm Powd.pack 4 Gm PO 1000,1400,2200 7 Days Enoxaparin Sodium 40 Mg/0.4 Ml Syringe 40 Mg SC Q24H 7 Days Reported Donepezil HCl 5 Mg Tablet 5 Mg PO HS Lisinopril 10 Mg Tablet 10 Mg PO DAILY Assessment/Pt Instructions Dr. Conte on long-term rounds Discharge Planning: <30 minutes discharge planning Discharge Instructions Discharge Diet: No Restrictions Discharge Physical Examination Vital Signs Vital Signs Date Time Temp Pulse Resp B/P (MAP) Pulse Ox O2 Delivery O2 Flow Rate FiO2 11/06/20 07:27 36.7 93 18 153/71 (98) 93 Room Air General Appearance: No Apparent Distress, WD/WN, Chronically ill Respiratory: Lungs Clear, Normal Breath Sounds Cardiovascular: Regular Rate, Rhythm Neurologic/Psychiatric: Alert, Oriented x3, Disoriented Allergies: Coded Allergies: Penicillins (Verified Allergy, Mild, RASH, 06/28/20) prednisone (Verified Allergy, Mild, RASH, 06/28/20) Discharge Summary Date of Admission Oct 22, 2020 at 16:16 Date of Discharge Discharge Date: Nov 06, 2020 Admission Diagnosis Sepsis Discharge Diagnosis Assessment: Sepsis Liver abscess status post incision and drainage and drain placed by interventional radiology Severe vitamin B12 deficiency Iron deficiency history Dementia Hypertension Hypokalemia Severe diarrhea placed on Questran Cough Plan: IV antibiotics Vitamin B12 injection 10/28/2020: Robitussin Questran 3 times daily Advance diet PT and OT 10/29/2020: Review CT scan Maintain drain Antibiotics maintained 10/30/2020: Slow recovery Monitor closely Improved nutrition intake Continue Questran 10/31/2020: Continue Questran Swing bed to Mike submitted to insurance 11/01/2020: Supportive care Monitor closely IV Lasix PICC line IV antibiotics 11/02/2020: Continue supportive care Rocephin IV Lasix as needed 11/03/2020: Supportive care May need assisted living for short time to transition home 11/04/2020: Assisted living on Wednesday Monitor closely DC Rocephin 11/05/2020: Discharge tomorrow to assisted living (1) Sepsis, unspecified organism Status: Acute Qualifiers: (2) Liver abscess Status: Acute (3) HTN (hypertension) Status: Chronic Qualifiers: Qualified Codes: I10 - Essential (primary) hypertension (4) JOSE (acute kidney injury) Status: Resolved (5) Dementia Status: Chronic MARY CARMEN CONTE DO Nov 06, 2020 10:40
[2020-11-06] MEDS: CHOLESTYRAMINE 4 GM (QUESTRAN LITE, PREVALITE) PKT PO SCH (10:51)
--- NOTE | 2020-11-06 11:39 | Occupational Ther Daily Note ---
OT Current Status-Daily Note Subjective Pt alert, sitting in recliner. Family present in room. Pt to discharge to [facility] skilled today. Mental Status/Objective Patient Orientation: Person, Place, Time ADL-Treatment Therapy Code Descriptions/Definitions Functional [place] Measure: 0=Not Assessed/NA 4=Minimal Assistance 1=Total Assistance 5=Supervision or Setup 2=Maximal Assistance 6=Modified [place] 3=Moderate Assistance 7=Complete IndependenceSCALE: Activities may be completed with or without assistive devices. 3-Gkdoutcoyp-nmifgde completes the activity by him/herself with no assistance from a helper. 5-Set-up or Clean-up Assistance-helper sets up or cleans up; patient completes activity. [place] assists only prior to or following the activity. 4-Supervision or Touching Assistance-helper provides verbal cues and/or serene ken/steadying and/or contact guard assistance as patient completes activity. Assistance may be provided throughout the activity or intermittently. 3-Partial/Moderate Assistance-helper does LESS THAN HALF the effort. [place] lifts, holds or supports trunk or limbs, but provides less than half the effort. 2-Substantial/Maximal Assistance-helper does MORE THAN HALF the effort. [place] lifts or holds trunk or limbs and provides more than half the effort. 4-Qvddewync-ynnodd does ALL the effort. Patient does none of the effort to complete the activity. Or, the assistance of 2 or more helpers is required for the patient to complete the activity. If activity was not attempted, code reason: 7-Patient Refused. 9-Not Applicable-not attempted and the patient did not perform the activity before the current illness, exacerbation or injury. 10-Not Attempted due to Environmental Limitations-(lack of equipment, weather restraints, etc.). 88-Not Attempted due to Medical Conditions or Safety Concerns. Other Treatment Reviewed pt's theraband HEP. Pt continues to require verbal and physical cues to complete HEP. Pt tolerates each exercise well. After therapy. pt sitting in recliner with call light/phone in reach. All needs met in room. OT Mcc Goals Mcc Goals Time Frame: Nov 06, 2020 Eating (QC): 6 Oral Hygiene (QC): 6 Toileting Hygiene (QC): 6 Shower/Bathe Self (QC): 6 Upper Body Dressing (QC): 6 Lower Body Dressing (QC): 6 On/Off Footwear (QC): 6 Additional Goals: 1-Demonstrate ADL Tasks, 2-Verbalize Understanding, 3- ImproveStrength/[place] 1=Demonstrate adherence to instructed precautions during ADL tasks. 2=Patient will verbalize/demonstrate understanding of assistive devices/modifications for ADL. 3=Patient will improve strength/tolerance for activity to enable patient to perform ADL's. OT Education/Plan Problem List/Assessment Assessment: Decreased Activ Tolerance, Decreased UE Strength Discharge Recommendations Plan/Recommendations: Continue POC Treatment Plan/Plan of Care Patient would benefit from OT for education, treatment and training to promote independence in ADL's, mobility, safety and/or upper extremity function for ADL's. Plan of Care: ADL Retraining, Functional Mobility, UE Funct Exercise/Act Treatment Duration: Nov 06, 2020 Frequency: 5 times per week Estimated Hrs Per Day: .25 hour per day Rehab Potential: Fair Time/GCodes Start Time: 10:50 Stop Time: 11:00 Total Time Billed (hr/min): 10 Billed Treatment Time 1 visit-EX 1 (10 min) EVELINE العلي Nov 06, 2020 11:39
[2020-11-06] MEDS ORDERED: DONE5TAB30 PO (14:44)
[2020-11-06] MEDS ORDERED: LISI10TA25 PO (14:44)
[2020-11-06 14:58] VITALS: BP 153/71
--- NOTE | 2020-11-06 15:47 | Progress Note ---
BRADLEY SERRANO MED STUDENT 11/06/20 1547: Progress Note This is a 80 YO female with history of who came to the ER on 10/22 for N/V/D, fever, and cough. She had her COVID vaccine and PCR was negative. Workup in the ER showed UTI and severe sepsis, for which she was admitted and treated with IV Rocephin and Azithromycin. During admission, she had a gallbladder US which showed a left lobe liver abscess. Dr. Strong was consulted and drained the asbcess via CT-guided percutaneous drainage. Pigtail catheter was placed at that time and removed on 11/01. Pt slowly regained her strength and worked with PT/OT during her stay. She notes that she has improved but lives alone and has some residual weakness. Agrees with short term stay at assisted living before going home. Will receive PT/OT at assisted living as well. MARY CARMEN TERAN DO 11/07/20 0506: Supervisory-Addendum Brief Verification & Attestation Participated in pt care: history, MDM, physical Personally performed: exam, history, MDM, supervision of care Care discussed with: Medical Student Procedures: n/a Results interpretation: Verified all documentation Verification and Attestation of Medical Student E/M Service A medical student performed and documented this service in my presence. I reviewed and verified all information documented by the medical student and made modifications to such information, when appropriate. I personally performed the physical exam and medical decision making. Mary Carmen Teran, Nov 07, 2020,05:06 BRADLEY SERRANO MED STUDENT Nov 06, 2020 15:47 MARY CARMEN TERAN DO Nov 07, 2020 05:06
[2020-11-13] MEDS ORDERED: CATHETER FLUSH 10 ML SYR IV PRN (08:00)
== END 2020-11-06 14:58 | DRG 871 ==
LOC: EDUNIT# 12:23 → ER 12:25 → 4TH 16:16
PROVIDERS: ADMIT Family Medicine; ATTEND Internal Medicine
PROC: 0F9030Z Drainage of Liver with Drainage Device, Percutaneous Approach (ICD-10-PCS; principal; 2020-10-25)
DX: A41.9 Sepsis, unspecified organism (principal); K75.0 Abscess of liver; N17.9 Acute kidney failure, unspecified; N39.0 Urinary tract infection, site not specified; J90 Pleural effusion, not elsewhere classified; I10 Essential (primary) hypertension; F03.90 Unspecified dementia, unspecified severity, without behavioral disturbance, psychotic disturbance, mood disturbance, and anxiety; E53.8 Deficiency of other specified B group vitamins; E61.1 Iron deficiency; Z20.822 Contact with and (suspected) exposure to COVID-19; E87.6 Hypokalemia; R19.7 Diarrhea, unspecified; R05 Cough; K21.9 Gastro-esophageal reflux disease without esophagitis; R65.20 Severe sepsis without septic shock; R53.1 Weakness; Z88.0 Allergy status to penicillin
CPT/HCPCS: 36415; 36569; 71045; 74018; 74176; 74177; 76705; 76937; 77012; 80048; 80053; 81000; 82728; 83605; 83615; 83690; 84145; 84484; 85007; 85025; 85027; 85384; 85610; 85730; 86141; 87040; 87070; 87075; 87077; 87088; 87205; 87636; 93005; 93041; 94640; 94664; 94760; 96361; 96365; 96375

== ENCOUNTER → 2020-12-11 | Outpatient (CLI) | payer MEDICARE ==
[~2020-12-11] MED LIST changes: +CHOL4PAC3 PO; +DONE5TAB30 PO; +ENOX40DI8 SC; +GUAI600T43 PO; -IRON SUCROSE 200 MG/10 ML (VENOFER) VIAL IV ONE; +LACT1CAP7 PO; +LISI10TA25 PO
--- NOTE | 2020-12-11 11:40 | Diagnostic Imaging Report ---
EXAMINATION: CT head without contrast. TECHNIQUE: Multiple contiguous axial images were obtained through the brain without the use of intravenous contrast. All CT scans use one or more of the following dose optimizing techniques: automated exposure control, MA and/or KvP adjustment based on patient size and exam type or iterative reconstruction. HISTORY: Amnesia COMPARISON: None available. FINDINGS: The rm-white matter differentiation is normal. No mass effect or midline shift. There is age related cerebral atrophy with ex vacuo dilation of the ventricles. Basilar cisterns are patent. There are no intra- or extra-axial fluid collections. There is no intracranial hemorrhage. The orbits are normal. Paranasal sinuses are normal. Mastoid air cells are clear. No soft tissue abnormality is seen. No osseus lesions or fractures are seen. IMPRESSION: 1. Generalized cerebral atrophy, no acute abnormality. Dictated by: Dictated on workstation # [id number]
== END ==
LOC: RAD 12-04 11:15
PROVIDERS: ATTEND Internal Medicine
DX: G31.9 Degenerative disease of nervous system, unspecified (principal)
CPT/HCPCS: 70450